=== PATIENT | female | born 1945 | race Caucasian/White ===

== ENCOUNTER 2021-03-31 13:11 | Outpatient (CLI) | payer MEDICARE, SELFPAY ==
--- NOTE | 2021-03-31 13:23 | ECG_ITS ---
Measurements Intervals [place] Rate: 64 P: 48 [place]: 167 QRS: 14 QRSD: 97 T: 33 QT: 406 QTc: 420 Interpretive Statements SINUS RHYTHM INCOMPLETE RIGHT BUNDLE BRANCH BLOCK LOW QRS VOLTAGE IN PRECORDIAL LEADS INFERIOR INFARCT, AGE INDETERMINATE BORDERLINE ST-T WAVE ABNORMALITY- ANTEROLATERAL LEADS ABNORMAL ECG Electronically Signed On 03-31-2021 13:52:51 CDT by Herminio Pemberton D.O.
[2021-03-31 14:17] LABS: Alanine Aminotransferase 24 U/L (4-35); Albumin Level 4.4 g/dL (3.5-5.1); Alkaline Phosphatase 54 U/L (38-126); Amylase 85 U/L (30-110); Anion Gap 11 mmol/L (8-16); Aspartate Amino Transferase 30 U/L (14-36); Bilirubin,Total 0.4 mg/dL (0.2-1.3); Blood Urea Nitrogen 15 mg/dL (7-17); Calcium 10.3 mg/dL (8.4-10.2); Carbon Dioxide 30 mmol/L (22-30); Chloride 100 mmol/L (98-107); Estimated Glomerular Filt Rate > 60; Glucose 140 mg/dL (65-110); Lipase 117 U/L (23-300); Potassium 3.7 mmol/L (3.4-5.0); Sodium 141 mmol/L (137-145)
== END 2021-03-31 13:12 | disposition home or self-care (01) ==
LOC: ANHSURGERY 13:16
PROVIDERS: PCP Family Medicine; Visit Provider Surgery
DX: K81.1 Chronic cholecystitis (principal); Z01.818 Encounter for other preprocedural examination; I45.10 Unspecified right bundle-branch block
CPT/HCPCS: 36415; 80053; 82150; 82248; 83690; 86850; 86900; 86901; 93005

== ENCOUNTER 2021-04-02 01:53 | Day surgery (SDC) | payer MEDICARE, SELFPAY ==
[2021-03-30 17:07] VITALS: BMI 38.9
[2021-04-02] VITALS (7 sets, daily range): BP systolic 136–157; BP diastolic 66–89; PULSE 66–80; RESP 12–16; TEMP 37.1; O2SAT 96–100
[2021-04-02] MEDS: ACETAMINOPHEN 500 MG TABLET 1000 MG PO (13:04)
[2021-04-02] MEDS: SCOPOLAMINE 1.5 MG PATCH TRANSDERM (13:06)
[2021-04-02] MEDS: KETOROLAC 15 MG/ML VIAL (*BKC) IV PUSH (13:14)
[2021-04-02] MEDS: LACTATED RINGERS 1,000 ML 30 ML IV CONT ×2 (13:31→15:16)
--- NOTE | 2021-04-02 13:44 | WPDHPUPDATE1 ---
History and Physical Update Update Date/Time: 04/02/21 13:44 History and Physical has been reviewed, including an updated exam of the patient. There are NO changes in the patient's condition. Risks, benefits, and alternatives have been discussed and questions answered. Patient agrees to proceed with procedure.
[2021-04-02] MEDS: BUPIVACAINE/EPINEPHRINE 0.5% 10 ML VIAL 30 ML INFILTRATE (14:27)
[2021-04-02] MEDS: ceFAZolin 2 GM/D5W 50 ML 2 GM/50 ML BAG IVPB (14:27)
--- NOTE | 2021-04-02 15:02 | W.PM.PROC2 ---
Procedure Note - Detailed Date of Procedure 04/02/21 Pre-op Diagnosis chronic cholecystitis with stones Post-op Diagnosis same Procedure Performed Laparoscopic cholecystectomy Surgeon Leighann Mariano MD Anesthesia general Indications 75-year-old female presented to the office complaining of postprandial right upper quadrant abdominal pain associated with nausea and vomiting. Workup including imaging significant for cholecystitis, cholelithiasis. Findings Cholecystitis with cholelithiasis Description of Procedure The patient was taken to the operating room placed in the supine position. After adequate induction of general anesthesia, the patient was prepped and draped in normal sterile fashion. A time-out was then performed to verify the patient's identity as well as the procedure being performed. I then made a 5 mm incision in the infraumbilical region. Through this, a Veress needle was placed into the peritoneal cavity and CO2 gas was then insufflated. After adequate pneumoperitoneum was achieved, the Veress needle was removed and a 5 mm optiview trocar was placed through this incision under direct visualization. I then placed the laparoscope through this trocar site and under direct visualization placed a further 12 mm subxiphoid port as well as 2 additional 5 mm ports in the right upper abdomen. The gallbladder was then identified and was noted to be moderately inflamed, distended, and had at least one large gallstone. I was able to place a grasper at the dome of the gallbladder and this was retracted anterior and cephalad up over the liver. A 2nd retractor was then placed at the infundibulum and retracted laterally, this allowed visualization of the triangle of Calot. I then was able to visualize the cystic duct in its entirety from its proximal insertion into the gallbladder, to its distal junction with the common hepatic/common bile duct junction. At this point, I carefully skeletonized the proximal cystic duct with the [place] dissector. I then clipped and transected the proximal cystic duct. Next I visualized the cystic artery. Again the artery was skeletonized, clipped, and transected. I then used the Bovie cautery to take down the peritoneal attachments of the gallbladder off the liver bed. This was somewhat difficult given the amount of inflammation in the posterior space. Once the gallbladder specimen was completely detached, an endo-pouch was placed through the 12 mm port site. I then placed the gallbladder specimen into the Endo pouch and removed the endo-pouch from the 12 mm port site. The specimen will now be sent to pathology for further review. I then copiously irrigated the right upper quadrant. Some mild oozing was noted in the liver bed and this was controlled with the bovie cautery. I then placed some hemostatic powder in the liver bed. Hemostasis was noted in the liver bed, the clips were noted to be in good position on both the cystic duct stump and the cystic artery stump. No other pathology was noted in the right upper quadrant. I then moved the laparoscope to the subxiphoid port. No iatrogenic injury or other pathology was noted in the lower abdomen. I then closed the 12 mm trocar site under direct visualization using the Ronnie cone and 0 Vicryl suture. At this point, the abdomen was desufflated and all ports removed. All port sites were then closed with 4.O Monocryl subcuticular sutures. Dermabond was placed on each incision. The patient tolerated the procedure well, was extubated in the operating room postoperative and will be transferred to the recovery room in stable condition Estimated Blood Loss 20 Drains No Packing No Pathology yes Complications No immediate complications Condition stable Disposition PACU
== END 2021-04-02 17:20 | disposition home or self-care (01) ==
PROVIDERS: PCP Family Medicine; Visit Provider Surgery
PROC: 0FT44ZZ Resection of Gallbladder, Percutaneous Endoscopic Approach (ICD-10-PCS; CPT 47562; principal; 2021-04-02 14:00)
DX: K80.10 Calculus of gallbladder with chronic cholecystitis without obstruction (principal); I10 Essential (primary) hypertension; E78.2 Mixed hyperlipidemia; Z85.3 Personal history of malignant neoplasm of breast
CPT/HCPCS: 47562; 88304; A9270; J0690; J1100; J1170; J1885; J2250; J2310; J2405; J2704; J2710; J3010; J7120

== ENCOUNTER 2024-08-30 10:11 | Emergency (ER) | payer MEDICARE, SELFPAY ==
[2024-08-30 10:29] VITALS: BP 136/91; PULSE 57; RESP 16; TEMP 35.7; O2SAT 100
--- NOTE | 2024-08-30 10:37 | ED_ITS ---
HPI - Female Genitourinary General Chief complaint: Urogenital-Female Stated complaint: UTI SYMPTOMS Time Seen by Provider: 08/30/24 10:35 Source: patient Mode of arrival: ambulatory Limitations: no limitations History of Present Illness HPI Narrative: Divya is a 79-year-old female patient presenting to the clinic today with complaints of a possible UTI. She reports she has had symptoms for approximately 3 weeks. Is having some burning with urination as well as some pressure in the lower abdomen and into the low back. She denies any fevers, chills, or body aches. Has attempted to take amoxicillin 500 mg 3 times a day and that improved her symptoms for a few days however this did not resolve her symptoms completely. Related Data Home Medications ?Medication ?Instructions ?Recorded ?Confirmed ?Last Taken ?Type cholecalciferol (vitamin D3) 125 125 mcg PO HS 03/30/21 08/30/24 03/31/21 History mcg (5,000 unit) tablet (Vitamin D3) furosemide 40 mg tablet (Lasix) 40 mg PO QAM 03/30/21 08/30/24 03/31/21 History lisinopril 40 mg tablet 40 mg PO DAILY 03/07/23 08/30/24 Unknown History trazodone 50 mg tablet 25 mg PO QHS PRN sleep 03/07/23 08/30/24 Unknown History Allergies Allergy/AdvReac Type Severity Reaction Status Date / Time adhesive tape Allergy Intermediate Rash Verified 08/30/24 10:27 Review of Systems Review of Systems: Pertinent positives per HPI. Patient denies any fever, chills, rash, headache, visual changes, dizziness, cough, runny nose, sore throat, shortness of breath, chest pain, palpitations, nausea, vomiting, diarrhea, constipation. [facility] Past Medical History Medical History Breast cancer Essential (primary) hypertension History of breast cancer Hypertension Mixed hyperlipidemia Surgical History Surgical History H/O lumbar discectomy (~1993) History of lumpectomy of right breast (~09/08/18) History of partial hysterectomy History of total left knee replacement (~05/16/12) History of total right knee replacement (~03/20/19) Hx laparoscopic cholecystectomy Hx of appendectomy Family History Family History Other Diabetes mellitus Family history of cardiovascular disease Family history of thyroid disease Hypertension Social History Social History Years smoked: 15 Smoking status: Former smoker Tobacco type: cigarettes Second hand tobacco smoke exposure: Yes Smoking end date: 09/12/90 Alcohol intake: former Alcohol use details: very rarely Substance use: never Lack of Transportation: No Lack of Food: Never True Current Housing: I Have Housing Concerned About Future Housing: No Difficulty Paying Gas/Electric Bills: No Difficulty Paying for Meds: No Currently Unemployed: No Difficulty w/ Childcare or Family Care: No Living arrangements: with family Occupation/Education: retired Gender identity (if verbalized by the patient): Female Sexual Orientation (if Verbalized by the Patient): Straight or Heterosexual Spiritual care concerns: No Agree to blood products: Yes Comments At the time of my signature, I reviewed and agree with the nursing past medical, surgical, social, and family history. There is no relevant family history pertinent to the patient complaint. Exam Narrative: General: Well-developed, well nourished, in no apparent distress. Head: Normocephalic, atraumatic. Cardio: Regular rate and rhythm, s1 and s2 normal, no murmur appreciated. Resp: Clear to auscultation bilaterally, no rhonchi, rales, wheezing or rubs. Abdomen: Soft, pliable, bowel sounds present in all quadrants, mild suprapubic tender to palpation, no organomegly, no CVAT tenderness. Course Course Emergency Course: Portions of this record may have been created with voice recognition software. Level of Care: Express Care Visit Vital Signs Vital signs: Vital Signs Temperature 35.7 C L 08/30/24 10:29 Pulse Rate 57 L 08/30/24 10:29 Respiratory Rate 16 08/30/24 10:29 Blood Pressure 136/91 H 08/30/24 10:29 Pulse Oximetry 100 08/30/24 10:29 Temperature 35.7 C L 08/30/24 10:29 Pulse Rate 57 L 08/30/24 10:29 Respiratory Rate 16 08/30/24 10:29 Blood Pressure 136/91 H 08/30/24 10:29 Pulse Oximetry 100 08/30/24 10:29 Vital signs reviewed MDM - Female Genitourinary MDM Narrative Medical decision making narrative: At the time of visit patient is resting comfortably on the exam table. Patient appears to be nontoxic. Labs: Urinalysis positive for leukocytes and blood. We will send for culture. Plan: I suspect patient has acute urinary tract infection. Prescription for Augmentin was sent to the pharmacy. Supportive measures were discussed with the patient and they voiced understanding discharge instructions and agrees to treatment plan. Return precautions reviewed Differential Diagnosis Differential diagnosis: Likely urinary tract infection and cystitis Discharge Plan Discharge Clinical Impression: UTI (urinary tract infection) Qualifiers: Urinary tract infection type: acute cystitis Hematuria presence: with hematuria Qualified Code(s): N30.01 - Acute cystitis with hematuria Patient Disposition: Home, Self-Care Condition: Stable Instructions: Antibiotic Form, Urinary Tract Infection in Older Adults (ED) Additional Instructions: Urinalysis is positive for leukocytes and blood. We will send urine for culture. Take Augmentin as prescribed Increase fluids and stay well hydrated Wipe front to back. May use wet wipes. Avoid tub baths If sexually active- pee before and after intercourse. Wear cotton panties Avoid tight clothing up against the genitals Follow up with your PCP in 1 week if symptoms persist. Patient Language: Portuguese Prescriptions: New amoxicillin-pot clavulanate 875-125 mg tablet 1 tablet PO Q12H 7 Days Qty: 14 0RF No Action lisinopril 40 mg tablet 40 mg PO DAILY trazodone 50 mg tablet 25 mg PO QHS PRN (Reason: sleep) furosemide [Lasix] 40 mg tablet 40 mg PO QAM cholecalciferol (vitamin D3) [Vitamin D3] 125 mcg (5,000 unit) Tablet 125 mcg PO HS amlodipine 10 mg tablet 10 mg PO DAILY Qty: 90 3RF metoprolol tartrate 50 mg tablet 50 mg PO BID Qty: 180 1RF Follow-up/Referrals: Soni,Erick Patel MD [Primary Care Provider] - Time of Disposition: 10:40 Quality NIHSS Nursing Documentation ED NIHSS nursing documentation: reviewed/agree
[2024-08-30 10:40] LABS: EDUAAPPEAR Clear; EDUABILI Negative (Negative); EDUABLOOD 2+ (Negative); EDUACOLOR1 Yellow; EDUAGLUCOSE Negative (Negative); EDUAKETONE Negative (Negative); EDUALEUKO Trace (Negative); EDUANITRATE Negative (Negative); EDUAPH 5.5; EDUAPROTEIN Negative (Negative); EDUAUROBILI 0.2
== END 2024-08-30 10:52 | disposition home or self-care (01) ==
PROVIDERS: Emergency Provider Nurse Practitioner Family; PCP Family Medicine
DX: N30.01 Acute cystitis with hematuria (principal); I10 Essential (primary) hypertension; E78.2 Mixed hyperlipidemia; Z79.899 Other long term (current) drug therapy; Z85.3 Personal history of malignant neoplasm of breast; Z87.891 Personal history of nicotine dependence
CPT/HCPCS: 81003; 87086; 99213; G0463

== ENCOUNTER 2025-01-19 09:43 | Outpatient (CLI) | payer MEDICARE, SELFPAY ==
--- NOTE | ~2025-01-19 | XR_ITS ---
XR hip LT 2V w AP pelvis Ordering provider: Jj Mishra MD History: . M16.12 - Unilateral primary osteoarthritis, left hip . Comparison: None. FINDINGS: BONES: No acute fracture or dislocation. HIP JOINT SPACES: Bilateral severe osteoarthritic changes more on the left side. SACROILIAC JOINT SPACES/LUMBAR SPINE: The sacroiliac joint spaces are normal. Mild degenerative obrien es of the visualized lower lumbar spine. PUBIC SYMPHYSIS: Normal. SOFT TISSUES: Normal. IMPRESSION: No acute osseous abnormality pelvis and left hip. Severe bilateral hip osteoarthritic changes more on the left side. Reviewed, dictated and finalized at location A.
--- OUTSIDE RECORDS SUMMARY | 2025-01-19 09:49 | XMS_ITS | Patient Health Record ---
Author Organization [facility] [address] [place], [place] [id number] Care Team Providers Care Acting Instructor Name Role Phone ABILIO OCONNOR Primary Care Provider REASON FOR REFERRAL No Information MEDICATIONS Medication SIG (Take, Route, Frequency, Duration) Notes Start Date End Date Status Metoprolol Tartrate 50 MG 2 tablets 1 ho ur before procedure Orally Once a day Active amLODIPine Besylate 10 MG 1 tablet Orall y Once a day Active Furosemide 40 MG 1 tablet Orally Once a day Active Anastrozole 1 MG 1 tablet Orally Once a day Active Lisinopril 40 MG 1 tablet Orally Once a day Active Alendronate Sodium 70 MG 1 tablet 30 min utes before the first food, beverage or medicine of the day with plain water Orally Active Vitamin D3 125 MCG (5000 UT) as directed Orally Active SOCIAL HISTORY Tobacco Use: Social History Observation Description Date Details (start date - stop date) Never Smoker NA - NA Sex Assigned At : Social History Observation Description Sex Assigned At Unknown Tobacco Use/Smoking Question Answer Notes Are you a nonsmoker PLAN OF TREATMENT No Information Insurance Providers Payer Name Payer Address Payer Phone Subscriber Number Group Number Insured Name Patient Relationship to Insured Coverage Start Date Coverage End Date [employer] [place] [employer] [address] [address] [place] [address] [id number] JEFFREY BLUE Self - patient is the insured [facility] [address] [place], [place] [id number] JEFFREY BLUE Self - patient is the insured 9 MEDICAL (GENERAL) HISTORY Medical History History ICD Code hypertension osteoporosis breast cancer Surgical History Surgery Date(Month/Year) bilateral knees hysterectomy
--- OUTSIDE RECORDS SUMMARY | 2025-01-19 09:49 | XMS_ITS | Clinical Summary ---
Author Organization [facility] Address [address] [place] [address] Care Team Providers Care Cable Tower Operator Name Role Phone Daisha Blackman MD Primary Care Provider [phone] Hernando Ackerman MD Unavailable Allergies Active Allergy Reactions Criticality Noted Date Comments Iodinated Contrast Media Unknown 01/21/2021 Medications lisinopril (ZESTRIL) 40 mg tablet Take 40 mg by mouth 1 (one) time each day. Active metoprolol tartrate (LOPRESSOR) 50 mg tablet Take 1 tablet by mouth 2 (two) times a day. Active amLODIPine (NORVASC) 10 mg tablet Take 1 tablet by mouth 1 (one) time each day. Active alendronate (FOSAMAX) 70 mg tablet Take 70 mg by mouth every 7 (seven) days. Take in the morning with a full glass of water, on an empty stomach, and do not take anything else by mouth or lie down for the next 30 min. Active cholecalciferol (VITAMIN D-3) 50 mcg (2,000 unit) capsule Take 5,000 Units by mouth 1 (one) time each day. Active glucosamine-cho ndroitin 500-400 mg tablet Take 1 tablet by mouth 3 (three) times a day. Active anastrozole (ARIMIDEX) 1 mg tablet Take 1 mg by mouth every night at bedtime. 06/30/2022 Active furosemide (LASIX) 40 mg tablet TAKE 1 TABLET(40 MG) BY MOUTH 1 TIME EACH DAY 90 tablet 09/15/2022 Active Active Problems Problem Noted Date Diagnosed Date Renal cyst 09/18/2021 Voiding dysfunction 01/21/2021 Stress incontinence 01/21/2021 Immunizations Immunization Administration Dates Next Due Influenza, High-Dose, Sonya valent (CVX 197) 08/05/2021 Influenza, seasonal, injecta ble (CVX 141) 07/30/2010,06/10/2009,08/15/2001 Influenza, seasonal, injecta ble, PF (CVX 140) 05/30/2020,09/23/2017 Influenza, trivalent, adjuva nted (CVX 168) 07/20/2019,06/19/2019,06/14/2019 Novel [id number] (CVX 127) 08/30/2009 Pneumococcal Conjugate PCV 1 3 (CVX 133) 09/12/2016 Pneumococcal Polysaccharide PPV23 (CVX 33) 09/12/2015,08/15/2001 influenza, high dose seasona l (CVX 135) 08/05/2018,06/27/2016,07/24/2015,07/07,07/08/2013,07/22/2011 Family History Medical History Relation Name Comments No Known Problems Father Relation Name Status Comments Father Social History Tobacco Use Types Packs/Day Years Used Date Smoking Tobacco: Former Smokeless Tobacco: Never Alcohol Use Standard Drinks/Week Comments Not Currently 0 (1 standard drink = 0.6 oz pur e alcohol) Caregiver Education and Work Answer Sb e Recorded Opt Out of Tobacco Outreach No 05/14 Opt Out of Tobacco Outreach No 05/14 Safety and Environment Answer Date Christian rded Opt Out of Tobacco Outreach No 05/14 Opt Out of Tobacco Outreach No 05/14 Opt Out of Tobacco Outreach No 05/14 Opt Out of Tobacco Outreach No 05/14 Caregiver Health Answer Date Recorded Opt Out of Tobacco Outreach No 05/14 Opt Out of Tobacco Outreach No 05/14 Opt Out of Tobacco Outreach No 05/14 Child Education Answer Date Recorded Opt Out of Tobacco Outreach No 05/14 Opt Out of Tobacco Outreach No 05/14 Opt Out of Tobacco Outreach No 05/14 Adolescent Substance Use Answer Date Re corded Opt Out of Tobacco Outreach No 05/14 Opt Out of Tobacco Outreach No 05/14 Opt Out of Tobacco Outreach No 05/14 [place] Short Social Needs Screening - Social Connect ion Answer Date Recorded Would you like help with any of the following needs: food, medicine/medical supplies, transportation, loneliness, housing or utilities? Not on file 01/27/2024 [place] Short Social Needs Screening - Food Insecurit y Answer Date Recorded Would you like help with any of the following needs: food, medicine/medical supplies, transportation, loneliness, housing or utilities? See other domains 09/20/2023 Would you like help with any of the following needs: food, medicine/medical supplies, transportation, loneliness, or housing/utilities? Not on file 09/20/2023 Comments Unknown Sex and Gender Information Value Date Recorded Sex Assigned at Not on file Legal Sex Female 7:20 AM EDT Gender Identity Not on file Sexual Orientation Not on file Last Filed Vital Signs Vital Sign Reading Time Taken Comments Blood Pressure 133/63 09/15/2022 8:33 AM EST Pulse 60 09/15/2022 8:33 AM EST Temperature 36.6 C (97.9 F) 09/15/2022 8:33 AM EST Respiratory Rate - - Oxygen Saturation 96% 08/27/2022 10: 28 AM EST Inhaled Oxygen Concentration - - Weight 91.1 kg (200 lb 13.4 oz) 09/15/2022 8:33 AM EST Height 154.9 cm (5' 1 ) 09/15/2022 8:33 AM EST Body Mass Index 37.95 09/15/2022 8:33 AM EST Plan of Treatment Health Maintenance Due Date Last Done Comments Hepatitis C Screening 1946 Depression Screening 1958 DTaP,Tdap,and Td Vaccines (1 - Tdap) 1965 Zoster Vaccines (1 of 2) 1965 Osteoporosis Screening 1996 Advance Care Planning 2011 Fall Risk Screening 2011 RSV women or 60 years and older (1 - 1-dose 75+ series) 2021 COVID-19 Vaccine (#1) 09/02/2021 08/05/2021, 021 Influenza Vaccine (Season Ended) 2025 08/05/2021, 05/30/2020, 07/20/2019, Additional history exists Pneumococcal Vaccine: 50+ Years Completed 09/12/2016, 09/12/2015, 08/15/2001 Pneumococcal Vaccine: Pediatrics (0 to 5 Years) and At-Risk Patients (6 to 49 Years) Completed 09/12/2016, 09/12/2015, 08/15/2001 Diabetes Screening Discontinued 09/07/2018, 1 , 07/12/2018 HIB Vaccines Aged Out No longer eligi ble based on patient's age to complete this topic HPV Vaccines Aged Out No longer eligi ble based on patient's age to complete this topic Hepatitis A Vaccines Aged Out No long er eligible based on patient's age to complete this topic Hepatitis B Vaccines Aged Out No long er eligible based on patient's age to complete this topic IPV Vaccines Aged Out No longer eligi ble based on patient's age to complete this topic Meningococcal ACWY Aged Out No longer eligible based on patient's age to complete this topic RSV patients under 20 months Aged Out No longer eligible based on patient's age to complete this topic Procedures Procedure Name Priority Date/Time Associated Diagnosis Comments COMPREHENSIVE METABOLIC PANEL Routine 09/07/2018 1:18 PM EST from Last 3 Months or Most Recently Relevant to Health Maintenance Results * Comprehensive metabolic panel (09/07/2018 1:18 PM EST) Albumin Level 3.8 3.5 - 5.0 g/dL LAB_2500 ALP 63 40 - 150 U/L LAB_2500 ALT 17 6 - 55 U/L LAB_2500 AST 19 5 - 34 U/L LAB_2500 Bilirubin Total 0.3 0.2 - 1.2 mg/dL LAB_2500 BUN 13 7 - 20 mg/dL LAB_2500 Calcium 9.6 8.4 - 10.2 mg/dL LAB_2500 Chloride 105 98 - 107 mmol/L LAB_2500 CO2 28 22 - 31 mmol/L LAB_2500 Creatinine 0.8 0.6 - 1.1 mg/dL LAB_2500 Glucose 95 83 - 110 mg/dL LAB_2500 Potassium 3.8 3.5 - 5.1 mmol/L LAB_2500 Sodium 143 136 - 145 mmol/L LAB_2500 Total Protein 7.0 6.4 - 8.3 g/dL LAB_2500 BUN/Creatinine Ratio 16.2 7.3 - 21.7 LAB_2500 Osmolality Calc 293 280 - 300 mOs/kg LAB_2500 Anion Gap 10 2 - 12 mmol/L LAB_2500 09/07/2018 1:18 PM EST Phi Briceno MD LAB BLOOD ORDERABLES Final R esult LAB_2500 from Last 3 Months or Most Recently Relevant to Health Maintenance Insurance MEDICARE A & B [facility] MEDICARE SUPPLEMENT Care Teams Cable Tower Operator Relationship Specialty Start Date End Date Daisha Blackman MD PCP - General 09/12/19 Hernando Ackerman MD [address] [place] [address] Consulting Physician Radiation Oncology 02/17/21
--- OUTSIDE RECORDS SUMMARY | 2025-01-19 09:49 | XMS_ITS | Encounter Summary ---
Author Organization [facility] Healthcare Address [address] [place] [address] Care Team Providers Care Diversity Manager Name Role Phone Erick Shafer MD Primary Care Provider [phone] Reason for Referral * Diagnostic Imaging (Routine) - Closed Specialty Diagnoses / Procedures Referred By Contac t Referred To Contact Radiology Diagnoses Abdominal pain, bilateral lower quadrant Procedures CT Abdomen Pelvis WO Contrast Erick Shafer MD [address] [place] [address] [address] [place] [address] Phone: tel: fax: [address] [phone] Referral ID Status Reason Start Date Expiration Date Visits Re quested Visits Authorized [id number] Closed 01/15/2025 02/14/2026 1 1 Reason for Visit * Diagnostic Imaging (Routine) - Closed Specialty Diagnoses / Procedures Referred By Contac t Referred To Contact Radiology Diagnoses Abdominal pain, bilateral lower quadrant Procedures CT Abdomen Pelvis WO Contrast Erick Shafer MD [address] [place] [address] [address] [place] [address] Phone: tel: fax: [address] [phone] Referral ID Status Reason Start Date Expiration Date Visits Re quested Visits Authorized [id number] Closed 01/15/2025 02/14/2026 1 1 Encounter Details Date Type Department Care Team (Latest Contact Info) Description 01/19/2025 8:33 AM CDT Hospital Encounter [facility] [address] [place] [address] Abdominal pain, bilateral lower quadrant Social History Tobacco Use Types Packs/Day Years Used Date Smoking Tobacco: Never Smokeless Tobacco: Never AUDIT-C Answer Date Recorded Q1: How often do you have a drink containing alc ohol? Monthly or less 05/15/2024 Q2: How many drinks containi ng alcohol do you have on a typical day when you are drinking? 1 or 2 05/15/2024 Q3: How often do you have si x or more drinks on one occasion? Never 05/15/2024 PHQ-2 Answer Date Recorded PHQ-2 Total Score (If total score is 3 or more points, staff should administer the PHQ-9) 0 01/03/2025 Comments Unknown Sex and Gender Information Value Date Recorded Sex Assigned at Not on file Legal Sex Female 5:10 PM TELEGRAPH OFFICE TELEPHONE CLERK Gender Identity Not on file Sexual Orientation Not on file documented as of this encounter Plan of Treatment Pending Results Name Type Priority Associated Diagnoses Date /Time CT Abdomen Pelvis WO Contrast Imaging Schedule Routine, Read Routine (OP Routine) Abdominal pain, bilateral lower quadrant 01/19/2025 8:38 AM CDT Scheduled Orders Name Type Priority Associated Diagnoses Orde r Schedule CT Abdomen Pelvis WO Contrast Imaging Schedule Routine, Read Routine (OP Routine) Abdominal pain, bilateral lower quadrant Once for 1 Occurrences starting 01/19/2025 until 01/19/2025 documented as of this encounter Visit Diagnoses Diagnosis Abdominal pain, bilateral lower quadrant documented in this encounter Care Teams Diversity Manager Relationship Specialty Start Date End Date Erick Shafer MD PCP - General Family Medicine 06/15/24 documented as of this encounter
--- OUTSIDE RECORDS SUMMARY | 2025-01-19 09:49 | XMS_ITS | Clinical Summary ---
Author Organization [facility] [address] Address [address] [place] [address] Care Team Providers Care Time Checker Name Role Phone Erick Shafer MD Primary Care Provider [phone] Allergies Active Allergy Reactions Criticality Noted Date Comments Adhesive Rash Medium 05/15/2024 Pulls skin off Iodinated Contrast Media Unknown 01/21/2021 Medications traZODone (DESYREL) 50 mg tablet Take 1 tablet (50 mg total) by mouth nightly 1-2 tablets every evening Active amLODIPine (NORVASC) 10 mg tablet Take 1 tablet (10 mg total) by mouth daily Active metoprolol tartrate (LOPRESSOR) 50 mg immediate release tablet Take 1 tablet (50 mg total) by mouth 2 (two) times a day Active lisinopriL (PRINIVIL,ZESTR IL) 40 mg tablet Take 1 tablet (40 mg total) by mouth daily Active furosemide (LASIX) 40 mg tablet Take 1 tablet (40 mg total) by mouth daily Active vitamin D3-vitamin K2 25 mcg (1,000 unit)-90 mcg tablet,disinteg rating Take 2,000 Units by mouth daily 01/04/20 25 Discontinu ed(Therapy completed) Active Problems No known active problems Encounters Date Type Department Care Team Description 01/19/2025 8:33 AM CDT Hospital Encounter [facility] [address] [place] [address] Abdominal pain, bilateral lower quadrant 01/14/2025 Telephone [facility] Family Medicine at [address] [place] [phone] Erick Shafer MD Symptom Based Call 01/03/2025 8:15 AM CDT Office Visit [facility] at [address] [place] [address] Erick Shafer MD Medicare annual wellness visit, subsequent (Primary Dx); Essential hypertension; Edema of both lower extremities; Chronic insomnia; Postmenopausal status from Last 3 Months Immunizations Immunization Administration Dates Next Due H1N1 Inj 08/30/2009 Influenza Virus Vaccine Trivalent Mdv 07/20/2019 ,06/19/2019,06/14/2019 Influenza, Quad, Adjuvantate d, Intramuscular 07/24/2022 Influenza, Quadrivalent, Hig h Dose, Preservative Free, Intrr 08/05/2021 Influenza, Trivalent, High D ose, Split, Preservative Free, Intramuscular 08/05/2018,06/27/2016,07/24/2015,07/07,07/08/2013,07/22/2011 Influenza, Trivalent, IM (MDV) 07/30/2010,2008,08/15/2001 Influenza, Trivalent, Preser vative Free, Intramuscular 05/30/2020,09/23/2017 Influenza, Unspecified 06/12/2023(Deferred: Leana ent Refused) Moderna SARS-CoV-2 Monovalen t Vaccination (12+ YRS) 08/05/2021,10/20/2020,09/24/2020 Pneumococcal Conjugate PCV 13 09/12/2016 Pneumococcal Polysaccharide PPV23 09/12/2015,12/2000 Surgical History Surgery Date Site/Laterality Comments CHOLECYSTECTOMY BREAST LUMPECTOMY JOINT REPLACEMENT HYSTERECTOMY SPINE SURGERY Family History Medical History Relation Name Comments Diabetes Brother Lung cancer Brother Stroke Brother Brain Aneurysm Father Diabetes Father Heart disease Father Diabetes Mother Heart disease Mother Thyroid disease Mother No Known Problems Sister Relation Name Status Comments Brother Father Mother Sister Alive Social History Tobacco Use Types Packs/Day Years Used Date Smoking Tobacco: Never Smokeless Tobacco: Never Tobacco Cessation:Counseling Given: Not Answered AUDIT-C Answer Date Recorded Q1: How often [...] on file 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 Gender Identity Not on file Sexual Orientation Not on file Obstetrics History Last Filed Vital Signs Vital Sign Reading Time Taken Comments Blood Pressure 130/62 01/03/2025 8:18 AM CDT Pulse 56 01/03/2025 8:18 AM CDT Temperature 36.6 C (97.9 F) 01/03/2025 8:18 AM CDT Respiratory Rate - - Oxygen Saturation 95% 01/03/2025 8:18 AM CDT Inhaled Oxygen Concentration - - Weight 87 kg (191 lb 14.4 oz) 01/03/2025 8:18 AM CDT Height 154.9 cm (5' 1 ) 01/03/2025 8:18 AM CDT Body Mass Index 36.26 01/03/2025 8:18 AM CDT Plan of Treatment Health Maintenance Due Date Last Done Comments Hepatitis C Screening 1945 Osteoporosis Screening-Bone Density Scan 1945 DTaP/Tdap/Td Vaccine (1 - Tdap) 1957 Hepatitis B Screening 1964 Zoster Vaccine (1 of 2) 1996 Covid-19 Vaccine (4 - 2023-2 5 season) 2024 08/05/2021, 10/20/2020, 09/24/2020 Influenza Vaccine (Season Ended) 2025 07/24/2022, 08/05/2021, 05/30/2020, Additional history exists Depression Screening 01/03/2026 01/03/2025, 05/15/20 Fall Risk Assessment 01/03/2026 01/03/2025, 05/15/20 Well Visit 65+ 01/03/2026 01/03/2025 Pneumococcal vaccine 65+ Completed 017, 09/12/2015, 08/15/2001 Insurance MEDICARE [facility] MEDICARE [facility] Care Teams Time Checker Relationship Specialty Start Date End Date Erick Shafer MD PCP - General Family Medicine 06/15/24
--- OUTSIDE RECORDS SUMMARY | 2025-01-19 09:49 | XMS_ITS | Referral Summary ---
Author Organization [facility] [address] Address [address] [place] [address] Care Team Providers Care Crop Pest Control Specialist Name Role Phone Erick Shafer MD Primary Care Provider [phone] Encounters Date Type Department Care Team Description 01/19/2025 8:33 AM CDT Hospital [facility] [address] [place] [address] Abdominal pain, bilateral lower quadrant 01/14/2025 Telephone [facility] Family Medicine at [address] [place] [address] Erick Shafer MD Symptom Based Call 01/03/2025 8:15 AM CDT Office Visit [facility] Medical [facility] Family Medicine at [address] [place] [phone] Erick Shafer MD Medicare annual wellness visit, subsequent (Primary Dx); Essential hypertension; Edema of both lower extremities; Chronic insomnia; Postmenopausal status from Last 3 Months Allergies Active Allergy Reactions Criticality Noted Date [...] completed) Active Problems No known active problems Immunizations Immunization Administration Dates Next Due H1N1 [...] PCV 13 09/12/2016 Pneumococcal Polysaccharide PPV23 09/12/2015,12/2000 Social History Tobacco Use Types Packs/Day Years [...] on file 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 [address] [place] [address] [facility] [place] [address] [facility] Care Teams Crop Pest Control Specialist Relationship Specialty Start Date End Date Erick Shafer MD PCP - General Family Medicine 06/15/24
--- OUTSIDE RECORDS SUMMARY | 2025-01-19 09:50 | XMS_ITS | Patient Health Record ---
Author Organization [facility] Address [address] [address] Support Name Relationship Address Phone Divya Fair Guarantor Unknown [phone] Reason For Referral No Information Problems Problem Type SNOMED Code ICD Code Onset Dates Problem Status W/U Status Risk Notes Problem 98632478 HTN (hypertension) (I10) Active confirmed Problem 44282696 Allergic rhinitis (J30.9) Active confirmed Problem 19678934 S/P lumpectomy, right breast (Z98.89) Active confirmed Problem 35240292 CAD (coronary artery disease) (I25.10) Active confirmed Problem 640913843 Morbid obesity (E66.01) Active confirmed Problem 301755559 Family history of MN (myocardial infarction) (Z82.49) Active confirmed Mother, at age 89 years, had MN Problem 752835167 Epiretinal membrane, both eyes (H35.373) Active confirmed Problem 22111932 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 Plan Of Treatment No Information Insurance Providers Payer Name Payer Address Payer Phone Subscriber Number Group Number Insured Name Patient Relationship to Insured Coverage Start Date Coverage End Date AARP (Supplemen rissa to Medicare) [address] [place] [address] [id number] Divya Fair Self - patient is the insured 3 MEDICARE [address] [place] [phone] [id number] Divya Fair Self - patient is the insured 1 Medical (General) History Medical History History ICD Code HTN (hypertension) I10 CAD (coronary artery disease) I25.10 Allergic rhinitis J30.9 S/P lumpectomy, right breast Z98.89 Epiretinal membrane, both eyes H35.373 Vitreous detachment of left eye H43.812 Morbid obesity E66.01 Status post total knee replacement, left Z96.652 Family history of MN (myocardial infarct ion) Z82.49
== END 2025-01-19 09:44 | disposition home or self-care (01) ==
PROVIDERS: PCP Family Medicine; Visit Provider Orthopaedic Surgery
DX: M16.0 Bilateral primary osteoarthritis of hip (principal)
CPT/HCPCS: 73502

== ENCOUNTER 2025-01-29 09:00 | Outpatient (CLI) | payer MEDICARE, SELFPAY ==
--- OUTSIDE RECORDS SUMMARY | 2025-01-29 09:13 | XMS_ITS | Encounter Summary ---
Author Organization [facility] Healthcare Address [address] [place] [address] Care Team Providers Care Talent Development Consultant Name Role Phone Erick Shafer MD Primary Care Provider [phone] Reason for Referral * MRI/CAT/PET Scan (Routine) - Authorized Specialty Diagnoses / Procedures Referred By Contac t Referred To Contact Radiology Diagnoses Lesion of bone of thoracic spine Procedures MRI Thoracic Spine WO Contrast Erick Shafer MD [address] [place] [address] [address] [place] [address] Phone: tel: fax: [address] [address] Referral ID Status Reason Start Date Expiration Date V isits Requested Visits Authorized [id number] Authorized 01/23/2025 02/22/2026 1 1 Reason for Visit * Reason Onset Date Comments Medical Question/Miscellaneous 01/22/2025 Encounter Details Date Type Department Care Team (Late st Contact Info) Description 01/22/2025 Results Follow-Up [facility] Family Medicine at [address] [address] Erick Shafer MD [address] [place] [id number] Abdomen Pelvis WO Contrast Social History Tobacco Use Types Packs/Day Years [...] on file 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 Wasn't sure of results message in chart. Warm transferred to practice. Does message need to be routed? No Reason for Warm Transfer: Patient returning call from practice Practice Accepted the Warm Transfer? Yes Additional Comments If YES above, and no barriers. documented in this encounter Plan of Treatment Scheduled Orders Name Type Priority Associated Diagnoses Order Schedule Urinalysis reflex to microscopic and culture Urine Microbiology Routine Abdominal pain, bilateral lower quadrant Expected: 01/23/2025, Expires: 01/23/2026 MRI Thoracic Spine WO Contrast Imaging Schedule Routine, Read Routine (OP Routine) Lesion of bone of thoracic spine Expected: 01/23/2025, Expires: 01/23/2026 documented as of this encounter Visit Diagnoses Diagnosis Abdominal pain, bilateral lower quadrant- Primary Lesion of bone of thoracic spine documented in this encounter Care Teams Talent Development Consultant Relationship Specialty Start Date End Date Erick Shafer MD PCP - General Family Medicine 06/15/24 documented as of this encounter
--- OUTSIDE RECORDS SUMMARY | 2025-01-29 09:13 | XMS_ITS | Patient Health Record ---
Author Organization [facility] [address] Address [address] [place], [place] [address] Care Team Providers Care Utility Assembler Name Role Phone ABILIO OCONNOR Primary Care [...] [facility] [place] [facility] [address] [address] [place] [address] [id number] JEFFREY BLUE Self - patient is the insured 1 [facility] l [address] [place], [place] [id number] JEFFREY BLUE Self - patient is the insured 9 MEDICAL (GENERAL) HISTORY Medical History History ICD Code hypertension osteoporosis breast cancer Surgical History Surgery Date(Month/Year) bilateral knees hysterectomy
--- OUTSIDE RECORDS SUMMARY | 2025-01-29 09:14 | XMS_ITS | Referral Summary ---
Author Organization [facility] [address] Address [address] [place] [address] Care Team Providers Care Twist Tester Name Role Phone Erick Shafer MD Primary Care Provider [phone] Encounters Date Type Department Care Team Description 01/22/2025 Results Follow-Up [facility] Family Medicine at [address] [place] [address] Abdomen Pelvis WO Contrast 01/19/2025 8:33 AM CDT - 01/19/2025 11:59 PM CDT Hospital Encounter [facility] Orthopedic and Neuroscience[facility] CT [address] [place] [address] Abdominal pain, bilateral lower quadrant Discharge Disposition: Discharge to home or self care 01/14/2025 Telephone [facility] Family Medicine at [address] [place] [phone] Erick Shafer MD Symptom Based Call 01/03/2025 8:15 AM CDT Office Visit [facility] Medical [facility] Family Medicine at [address] [place] [address] Erick Shafer MD Medicare annual wellness visit, [...] on file 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 Gender Identity Not on file Sexual Orientation [...] CDT Plan of Treatment Not on file Procedures Procedure Name Priority Date/Time Associated Diagnosis Comments CT ABDOMEN PELVIS WO CONTRAST Schedule Routine, Read Routine (OP Routine) 01/19/2025 8:38 AM CDT Abdominal pain, bilateral lower quadrant from Last 3 Months Results * CT Abdomen Pelvis WO Contrast (01/19/2025 8:38 AM CDT) Anatomical Region Laterality Modality Body N/A Computed Tomogra phy 01/19/2025 1:08 PM CDT Narrative 01/19/2025 1:11 PM CDT EXAM DESCRIPTION: CT ABDOMEN PELVIS WO CONTRAST REASON FOR STUDY: bilateral lower quadrant abdominal pain Patient had her gallbladder removed 3 years ago and has had epigastric pain patient and diarrhea since TECHNIQUE: CT scan of the abdomen and pelvis performed without intravenous and without oral contrast using helical scanning technique. Reconstructed coronal and sagittal MPR images reviewed. All images stored on PACS. Automated exposure control was used as a dose optimization technique for this examination. COMPARISON: None FINDINGS: The sensitivity for detection of visceral lesions is diminished without the use of intravenous contrast. LOWER CHEST: There are curvilinear bands of atelectasis or scarring in the lung bases. LIVER: Normal length. GALLBLADDER: Absent. SPLEEN: Normal length. PANCREAS: No peripancreatic inflammation or fluid collection. ADRENALS: No adrenal mass. KIDNEYS/URINARY TRACT: No urolithiasis. There is minimal bilateral pelvicaliectasis. An exophytic 1.3 cm right renal lesion likely represents a renal cyst. GI: No bowel obstruction. Colonic diverticulosis without acute diverticulitis. PERITONEUM: No ascites or free air. VASCULATURE: Vascular calcifications. No abdominal aortic aneurysm. MUSCULOSKELETAL: No acute findings. Osteoarthritis in the bilateral hip joints. Lumbar and lower thoracic spondylosis. Lucent lesions in the T7 and T8 vertebral bodies. L4 vertebral body hemangioma. OTHER: No other abnormality. IMPRESSION: No acute findings. Minimal bilateral pelvicaliectasis of uncertain etiology. Correlate for history of recently passed urinary calculus. Consideration could be given to direct visualization or CT urogram. Colonic diverticulosis. Indeterminate lucent lesions in the T7 and T8 vertebral bodies. Further evaluation with nonemergent MRI is recommended. Additional findings as above. THIS IS AN ELECTRONICALLY VERIFIED FINAL REPORT 01/19/2025 1:11 PM - Electronically signed by Carrillo Cabral M.D. JR T: Report ID: [id number] Reading Location: [id number] Procedure Note Carrillo Cabral MD - 01/19/2025 EXAM DESCRIPTION: CT ABDOMEN PELVIS WO CONTRAST REASON FOR STUDY: bilateral lower quadrant abdominal pain Patient had her gallbladder removed 3 years ago and has had epigastricpain patient and diarrhea since TECHNIQUE: CT scan of the abdomen and pelvis performed without intravenousand without oral contrast using helical scanning technique. Reconstructed coronal and sagittal MPR images reviewed. All images stored on PACS. Automated exposure control was used as a dose optimization technique forthis examination. COMPARISON: None FINDINGS: The sensitivity for detection of visceral lesions is diminished without the use of intravenous contrast. LOWER CHEST: There are curvilinear bands of atelectasis or scarring inthe lung bases. LIVER: Normal length. GALLBLADDER: Absent. SPLEEN: Normal length. PANCREAS: No peripancreatic inflammation or fluid collection. ADRENALS: No adrenal mass. KIDNEYS/URINARY TRACT: No urolithiasis. There is minimal bilateral pelvicaliectasis. An exophytic 1.3 cm right renal lesion likelyrepresents a renal cyst. GI: No bowel obstruction. Colonic diverticulosis without acute diverticulitis. PERITONEUM: No ascites or free air. VASCULATURE: Vascular calcifications. No abdominal aortic aneurysm. MUSCULOSKELETAL: No acute findings. Osteoarthritis in the bilateral hip joints. Lumbar and lower thoracic spondylosis. Lucent lesions in the T7and T8 vertebral bodies. L4 vertebral body hemangioma. OTHER: No other abnormality. IMPRESSION: No acute findings. Minimal bilateral pelvicaliectasis of uncertain etiology. Correlate for history of recently passed urinary calculus. Consideration could be givento direct visualization or CT urogram. Colonic diverticulosis. Indeterminate lucent lesions in the T7 and T8 vertebral bodies. Further evaluation with nonemergent MRI is recommended. Additional findings as above. THIS IS AN ELECTRONICALLY VERIFIED FINAL REPORT 01/19/2025 1:11 PM - Electronically signed by Carrillo Cabral M.D. T: Report ID: [id number] Reading Location: [place] [address] Erick Shafer MD IMG CT PROCEDURES Final Resul t from Last [address] [facility]ICARE [facility] Care Teams Twist Tester Relationship Specialty Start Date End Date Erick Shafer MD PCP - General Family Medicine 06/15/24
--- OUTSIDE RECORDS SUMMARY | 2025-01-29 09:14 | XMS_ITS | Patient Health Record ---
Author Organization [facility] Address [address] [address] Support Name Relationship Address Phone Divya Fair Guarantor Unknown [phone] Reason For Referral No Information Problems Problem Type SNOMED Code ICD Code Onset Dates Problem Status W/U Status Risk Notes Problem 94372722 HTN (hypertension) (I10) Active confirmed Problem 66969583 Allergic rhinitis (J30.9) Active confirmed Problem 05559931 S/P lumpectomy, right breast (Z98.89) Active confirmed Problem 15615616 CAD (coronary artery disease) (I25.10) Active confirmed Problem 105464558 Morbid obesity (E66.01) Active confirmed Problem 795837523 Family history of CO (myocardial infarction) (Z82.49) Active confirmed Mother, at age 89 years, had CO Problem 340354133 Epiretinal membrane, both eyes (H35.373) Active confirmed Problem 00837850 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 Plan Of Treatment No Information Insurance Providers Payer Name Payer Address Payer Phone Subscriber Number Group Number Insured Name Patient Relationship to Insured Coverage Start Date Coverage End Date AARP (Supplemen rissa to Medicare) [address] [place] [address] [id number] Divya Fair Self - patient is the insured 3 MEDICARE [address] [place] [phone] [id number] Divya Fair Self - patient is the insured 1 Medical (General) History Medical History History ICD Code HTN (hypertension) I10 CAD (coronary artery disease) I25.10 Allergic rhinitis J30.9 S/P lumpectomy, right breast Z98.89 Epiretinal membrane, both eyes H35.373 Vitreous detachment of left eye H43.812 Morbid obesity E66.01 Status post total knee replacement, left Z96.652 Family history of CO (myocardial infarct ion) Z82.49
--- OUTSIDE RECORDS SUMMARY | 2025-01-29 09:14 | XMS_ITS | Clinical Summary ---
Author Organization [facility] Address [address] [place] [address] Care Team Providers Care Operations Controller Name Role Phone Daisha Blackman MD Primary Care Provider [phone] Hernando Ackerman MD Unavailable Allergies Active Allergy [...] trivalent, adjuva nted (CVX 168) 07/20/2019,06/19/2019,06/14/2019 Novel [id number] (CVX 127) 08/30/2009 Pneumococcal Conjugate PCV 1 [...] Health Maintenance Insurance MEDICARE A & B [facility] MEDICARE SUPPLEMENT Care Teams Operations Controller Relationship Specialty Start Date End Date Daisha Blackman MD PCP - General 09/12/19 Hernando Ackerman MD [address] [place] [address] Consulting Physician Radiation Oncology 02/17/21
--- OUTSIDE RECORDS SUMMARY | 2025-01-29 09:14 | XMS_ITS | Clinical Summary ---
Author Organization [facility] [address] Address [address] [place] [address] Care Team Providers Care Safety Relief Valve Technician Name Role Phone Erick Shafer MD Primary Care Provider [phone] Allergies Active Allergy Reactions Criticality Noted Date [...] Department Care Team Description 01/22/2025 Results Follow-Up [facility] Family Medicine at [address] [place] [address] Abdomen Pelvis WO Contrast 01/19/2025 8:33 AM CDT - 01/19/2025 11:59 PM CDT Hospital Encounter 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 JR T: Report ID: [id number] Reading Location: [place] [address] Erick Shafer MD IMG CT PROCEDURES Final Resul t from Last 3 [place]ths [place] [address] [facility] MEDICARE [facility] Care Teams Safety Relief Valve Technician Relationship Specialty Start Date End Date Erick Shafer MD PCP - General Family Medicine 06/15/24
--- NOTE | 2025-01-29 09:20 | ECG_ITS ---
Test Date: 2025-01-29 09:41:04 Measurements Intervals [place] Rate: 53 P: 50 CT: 169 QRS: 3 QRSD: 94 T: 30 QT: 430 QTc: 406 Interpretive Statements SINUS BRADYCARDIA LOW QRS VOLTAGE IN PRECORDIAL LEADS [QRS DEFLECTION < 1.0 mV IN CHEST LEADS] INFERIOR MYOCARDIAL INFARCTION , PROBABLY OLD [40+ ms Q WAVE AND/OR ST/T ABNORMALITY IN II/aVF] NONSPECIFIC ST AND T WAVE ABNORMALITY No previous ECG available for comparison Electronically Signed On 01-29-2025 13:38:12 CDT by Michelle oGnzalez M.D.
[2025-01-29 09:34] LABS: Hematocrit 44.2 % (37.0-47.0); Hemoglobin 14.7 g/dL (12.0-15.0)
[2025-01-29 09:44] LABS: Albumin Level 4.4 g/dL (3.5-5.1); Estimated Glomerular Filt Rate 56; Glucose 103 mg/dL (65-110)
[2025-01-29 10:13] LABS: Urine Cotinine NEGATIVE
== END 2025-01-29 09:01 | disposition home or self-care (01) ==
PROVIDERS: PCP Family Medicine; Visit Provider Orthopaedic Surgery
DX: E78.2 Mixed hyperlipidemia (principal); M16.12 Unilateral primary osteoarthritis, left hip; Z79.899 Other long term (current) drug therapy; I10 Essential (primary) hypertension; R94.31 Abnormal electrocardiogram [ECG] [EKG]
CPT/HCPCS: 80307; 82040; 82565; 82947; 85014; 85018; 93005

== ENCOUNTER 2025-03-25 09:44 | Outpatient (CLI) | payer MEDICARE, SELFPAY ==
--- OUTSIDE RECORDS SUMMARY | 2025-03-25 09:54 | XMS_ITS | Encounter Summary ---
Author Organization [facility] Healthcare Address [address] [place] [address] Care Team Providers Care Battery Vent Plug Inserter Name Role Phone Erick Shafer MD Primary Care Provider [phone] Reason for Referral * MRI/CAT/PET Scan (Routine) - Authorized Specialty Diagnoses / Procedures Referred By Contac t Referred To Contact Radiology Diagnoses Opacity of lung on imaging study Procedures CT Chest WO Contrast Erick Shafer MD [address] [place] [address] [address] Phone: tel: fax: [address] [address] Referral ID Status Reason Start Date Expiration Date V isits Requested Visits Authorized [id number] Authorized 03/08/2025 04/07/2026 1 1 * Diagnostic Imaging (Routine) - Authorized Specialty Diagnoses / Procedures Referred By Contac t Referred To Contact Diagnoses Goiter Procedures US Thyroid Erick Shafer MD [address] [place] [address] [address] Phone: tel: fax: [address] [address] Referral ID Status Reason Start Date Expiration Date V isits Requested Visits Authorized [id number] Authorized 03/08/2025 04/07/2026 1 1 Encounter Details Date Type Department Care Team (Late st Contact Info) Description 03/03/2025 Results Follow-Up [facility] Medical Group Family Medicine at [address] [place] [id number] Erick Shafer MD [address] [place] [address] [address] [place] [address] MRI Thoracic Spine WO Contrast, TSH Social History Tobacco Use Types Packs/Day Years [...] on file 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 Gender Identity Not on file Sexual Orientation Not on file documented as of this encounter Plan of Treatment Scheduled Orders Name Type Priority Associated Diagnoses Orde r Schedule US Thyroid Imaging Schedule Routine , Read Routine (OP Routine) Goiter Expected: 03/08/2025, Expires: 03/08/2026 Thyroid peroxidase antibody (TPO) Lab Routine Goiter Expected: 03/08/2025, Expires: 03/08/2026 CT Chest WO Contrast Imaging Schedule Ro utine, Read Routine (OP Routine) Opacity of lung on imaging study Expected: 03/08/2025, Expires: 03/08/2026 documented as of this encounter Procedures Procedure Name Priority Date/Time Associated Diagnosis Comments TSH Routine 03/21/2025 1:02 PM CDT Goiter documented in this encounter Results * TSH (03/21/2025 1:02 PM CDT) TSH 0.41 0.40 - 4.50 mIU/L [facility] Blood 03/21/2025 1:02 PM CDT 03/21/2025 1:03 PM CDT Erick Shafer MD LAB BLOOD ORDERABLES Final Re sult Performing Organization Address City/State/[facility] Co de Phone Number [facility] [address] [place] [address] documented in this encounter Visit Diagnoses Diagnosis Goiter- Primary Goiter, unspecified Opacity of lung on imaging study documented in this encounter Care Teams Battery Vent Plug Inserter Relationship Specialty Start Date End Date Erick Shafer MD PCP - General Family Medicine 06/15/24 documented as of this encounter
--- OUTSIDE RECORDS SUMMARY | 2025-03-25 09:54 | XMS_ITS | Encounter Summary ---
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 Third Libertarian Name of Third Libertarian: Dr. Mishra How to return form to third republican? Fax Fax Number to use for return of forms: [phone] Additional Comments: Patient is scheduled for surgery on 04/16/2025. Does message need to be routed? Yes-Action Needed documented in this encounter Plan of Treatment Not on file documented as of this encounter Visit Diagnoses Not on filedocumented in this encounter Care Teams Editor & Co Founder Relationship Specialty Start Date End Date Erick Shafer MD PCP - General Family Medicine 06/15/24 documented as of this encounter
--- OUTSIDE RECORDS SUMMARY | 2025-03-25 09:54 | XMS_ITS | Clinical Summary ---
Author Organization [facility] Address [address] [place] [address] Care Team Providers Care Wireless Consultant Name Role Phone Daisha Blackman MD Primary Care Provider [phone] Hernando Ackerman MD Unavailable Allergies Active Allergy [...] trivalent, adjuva nted (CVX 168) 07/20/2019,06/19/2019,06/14/2019 Novel [id number] (CVX 127) 08/30/2009 Pneumococcal Conjugate PCV 1 [...] 8:33 AM EST Height 154.9 cm (5' 1) 09/15/2022 8:33 AM EST Body Mass Index [...] Vaccine (#1) 09/02/2021 08/05/2021, 021 Influenza Vaccine (#1) 2025 , 05/30/2020, 07/20/2019, Additional history exists Pneumococcal Vaccine: [...] Health Maintenance Insurance MEDICARE A & B [facility] MEDICARE SUPPLEMENT Care Teams Wireless Consultant Relationship Specialty Start Date End Date Daisha Blackman MD PCP - General 09/12/19 Hernando Ackerman MD [address] [place] [address] Consulting Physician Radiation Oncology 02/17/21
--- OUTSIDE RECORDS SUMMARY | 2025-03-25 09:55 | XMS_ITS | Clinical Summary ---
Author Organization [facility] [address] Address [address] [place] [address] Care Team Providers Care Board Certified Music Therapist Name Role Phone Erick Shafer MD Primary Care Provider [phone] Allergies Active Allergy Reactions Criticality Noted Date [...] (40 mg total) by mouth daily Active Active Problems No known active problems Encounters Date Type Department Care Team Description 03/25/2025 Telephone [facility] Medical Group Family Medicine at [address] [place] [address] Erick Shafer MD Forms Request 03/03/2025 Results Follow-Up [facility] Family Medicine at [address] [place] [address] Erick Shafer MD MRI Thoracic Spine WO Contrast, TSH 02/27/2025 3:24 PM CDT - 02/27/2025 11:59 PM CDT Hospital Encounter [facility] MRI [address] [place] [address] Lesion of bone of thoracic spine Discharge Disposition: Discharge to home or self care 02/06/2025 Telephone [facility] Family Medicine at [address] [address] Erick Shafer MD Surgical Clearance 01/22/2025 Results Follow-Up [facility] at [address] [address] Abdomen Pelvis WO Contrast 01/19/2025 8:33 AM CDT - 01/19/2025 11:59 PM CDT Hospital Encounter [facility] [address] [place] [address] Abdominal pain, bilateral lower quadrant Discharge Disposition: Discharge to home or self care 01/14/2025 Telephone [facility] at [address] [address] Erick Shafer MD Symptom Based Call 01/03/2025 8:15 AM CDT Office Visit [facility] Medicine at [address] [address] Erick Shafer MD Medicare annual wellness visit, [...] on file 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 Gender Identity Not on file Sexual Orientation [...] 8:18 AM CDT Height 154.9 cm (5' 1) 01/03/2025 8:18 AM CDT Body Mass Index 36.26 01/03/2025 8:18 AM CDT Plan of Treatment Health Maintenance Due Date Last Done Comments Hepatitis C Screening 1945 Osteoporosis Screening-Bone Density Scan 1945 DTaP/Tdap/Td Vaccine (1 - Tdap) 1957 Hepatitis B Screening 1964 Zoster Vaccine (1 of 2) 1996 Covid-19 Vaccine (4 2023-2 5 season) 2024 08/05/2021, 10/20/2020, 09/24/2020 Influenza Vaccine (#1) 2025 , 08/05/2021, 05/30/2020, Additional history exists Depression Screening 01/03/2026 01/03/2025, 05/15/20 Fall Risk Assessment 01/03/2026 01/03/2025, 05/15/20 Well Visit 65+ 01/03/2026 01/03/2025 Pneumococcal vaccine 65+ Completed 017, 09/12/2015, 08/15/2001 Procedures Procedure Name Priority Date/Time Associated Diagnosis Comments TSH Routine 03/21/2025 1:02 PM CDT Goiter MRI THORACIC SPINE WO CONTRAST Schedule Routine, Read Routine (OP Routine) 02/27/2025 5:12 PM CDT Lesion of bone of thoracic spine ECG 12-LEAD Routine 01/29/2025 SCANNED LABS Routine 01/29/2025 CT ABDOMEN PELVIS WO CONTRAST Schedule Routine, Read Routine (OP Routine) 01/19/2025 8:38 AM CDT Abdominal pain, bilateral lower quadrant from Last 3 Months Results * TSH (03/21/2025 1:02 PM CDT) TSH 0.41 0.40 - 4.50 mIU/L [facility] Blood 03/21/2025 1:02 PM CDT 03/21/2025 1:03 PM CDT us Erick Shafer MD LAB BLOOD ORDERABLES Final Re sult [facility] [address] [address] * MRI Thoracic Spine WO Contrast (02/27/2025 5:12 PM CDT) Anatomical Region Laterality Modality Spine N/A Magnetic Resonan ce 02/28/2025 10:2 3 AM CDT Narrative 02/28/2025 10:37 AM CDT EXAM DESCRIPTION: MRI THORACIC SPINE WO CONTRAST REASON FOR STUDY: Bone lesion, thoracic spine, incidental, abnormal vertebra F/u for CT on 01/19/25. Mid back pain x29 years that's worsened over time. NO injury/ No surgery TECHNIQUE: Sagittal and Axial imaging includes T1, T2, STIR and gradient echo sequences. COMPARISON: CT of the abdomen and pelvis dated 01/19/2025 FINDINGS: ALIGNMENT: Mild anterolisthesis of T2 over T3. VERTEBRAE: There are rounded T1, T2 and STIR hyperintense foci within the T7 and T8 vertebral bodies as seen on prior CT. These represent hemangiomas. There is also a background of T1 hypointensity and STIR hyperintensity within the T7 and to a lesser extent T8 and T9 vertebral bodies which represent severe Modic endplate changes. There are also type 1 Modic endplate changes at T1-T2 and T11-12. Partially visualized type 1 Modic changes of L2-L3. The vertebral body heights are maintained. CORD: Normal in size and signal intensity. THORACIC DISCS T1-T12: Mild multilevel disc space height loss. There are multiple disc bulges and protrusions in the thoracic spine. No significant spinal canal stenosis is identified. There is mild multilevel neural foraminal stenosis. Numerous thoracic perineural cysts most pronounced at T1-T2.. SOFT TISSUES: There is a ill-defined opacity in the medial aspect of the right lower lobe measuring 3.9 cm (series 901, image 10.). This does not appear to have been within the field of view on the prior CT abdomen and pelvis. There is an enlarged multinodular thyroid goiter with mild substernal extension. The heart is enlarged. LOWER CERVICAL: Incompletely imaged. Partially visualized cervical spondylosis with [id number] spinal canal stenosis at C5-C6. UPPER LUMBAR: Incompletely imaged. No significant spinal or neuroforaminal stenosis. OTHER: No other significant abnormality. IMPRESSION: 1. The previously described lucent lesions of the T7 and T8 vertebral bodies are T1 hyperintense and STIR hypointense representing hemangiomas. 2. 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 No significant spinal canal stenosis within the thoracic spine. 3. Ill-defined opacity in the medial aspect of the right lower lobe measuring 3.9 cm. This does not appear to have been within the field of view on the prior CT abdomen and pelvis. This is nonspecific and may represent consolidation such as pneumonia or a mass. Further evaluation with chest CT is recommended. 4. Enlarged multinodular thyroid goiter with mild substernal extension. THIS IS AN ELECTRONICALLY VERIFIED FINAL REPORT 02/28/2025 10:37 AM - Electronically signed by iKshor Carr M.D. MM T: Report ID: [id number] Reading Location: [place] [address] Procedure Note Kishor Carr MD - 02/28/2025 EXAM DESCRIPTION: MRI THORACIC SPINE WO CONTRAST REASON FOR STUDY: Bone lesion, thoracic spine, incidental, abnormalvertebra F/u for CT on 01/19/25. Mid back pain x29 years that's worsened over time.NO injury/ No surgery TECHNIQUE: Sagittal and Axial imaging includes T1, T2, STIR and gradientecho sequences. COMPARISON: CT of the abdomen and pelvis dated 01/19/2025 FINDINGS: ALIGNMENT: Mild anterolisthesis of T2 over T3. VERTEBRAE: There are rounded T1, T2 and STIR hyperintense foci withinthe T7 and T8 vertebral bodies as seen on prior CT. These represent hemangiomas. There is also a background of T1 hypointensity and STIR hyperintensitywithin the T7 and to a lesser extent T8 and T9 vertebral bodies which represent severe Modic endplate changes. There are also type 1 Modic endplatechanges at T1-T2 and T11-12. Partially visualized type 1 Modic changes of L2-L3.The vertebral body heights are maintained. CORD: Normal in size and signal intensity. THORACIC DISCS T1-T12: Mild multilevel disc space height loss. Thereare multiple disc bulges and protrusions in the thoracic spine. Nosignificant spinal canal stenosis is identified. There is mild multilevel neural foraminal stenosis. Numerous thoracic perineural cysts most pronounced at T1-T2.. SOFT TISSUES: There is a ill-defined opacity in the medial aspect of the right lower lobe measuring 3.9 cm (series 901, image 10.). This does not appear to have been within the field of view on the prior CT abdomen and pelvis. There is an enlarged multinodular thyroid goiter with mildsubsternal extension. The heart is enlarged. LOWER CERVICAL: Incompletely imaged. Partially visualized cervical spondylosis with [id number] spinal canal stenosis at C5-C6. UPPER LUMBAR: Incompletely imaged. No significant spinal orneuroforaminal stenosis. OTHER: No other significant abnormality. IMPRESSION: 1. The previously described lucent lesions of the T7 and T8 vertebralbodies are T1 hyperintense and STIR hypointense representing hemangiomas. 2. Severe degenerative disc disease of the thoracic spine withmultilevel severe type 1 Modic degenerative changes. No significant spinal canal stenosis within the thoracic spine. 3. Ill-defined opacity in the medial aspect of the right lower lobe measuring 3.9 cm. This does not appear to have been within the field ofview on the prior CT abdomen and pelvis. This is nonspecific and may represent consolidation such as pneumonia or a mass. Further evaluation with chestCT is recommended. 4. Enlarged multinodular thyroid goiter with mild substernalextension. THIS IS AN ELECTRONICALLY VERIFIED FINAL REPORT 02/28/2025 10:37 AM - Electronically signed by Kishor Carr M.D. MM T: Report ID: [id number] Reading Location: [id number] Erick Shafer MD IMG MRI PROCEDURES Final Resu lt * Scanned Labs (01/29/2025) 01/29/2025 us Historical Provider MD LAB BLOOD ORDERABLES Arabella lam Result EXTERNAL LAB * ECG 12 lead (01/29/2025) Historical Provider MD ECG ORDERABLES Edited Re sult - Final * CT Abdomen Pelvis WO Contrast (01/19/2025 [...] Carrillo Cabral M.D., JR T: Report ID: [id number] Reading Location: [place] [address] Procedure Note Carrillo Cabral MD - 01/19/2025 [...] 1:11 PM - Electronically signed by Carrillo Vasuqez.D. JR T: Report ID: [id number] Reading Location: [place] [address] Erick Shafer MD IMG CT PROCEDURES Final Resul t from Last 3 Months Insurance MEDICARE [facility] Care Teams Board Certified Music Therapist Relationship Specialty Start Date End Date Erick Shafer MD PCP - General Family Medicine 06/15/24
--- OUTSIDE RECORDS SUMMARY | 2025-03-25 09:55 | XMS_ITS | Encounter Summary ---
Author Organization [facility] Healthcare Address [address] [place] [address] Care Team Providers Care Surveyor'S Assistant Name Role Phone Erick Shafer MD Primary Care Provider Reason for Referral * MRI/CAT/PET Scan (Routine) - Closed Specialty Diagnoses / Procedures Referred By Contac t Referred To Contact Radiology Diagnoses Lesion of bone of thoracic spine Procedures MRI Thoracic Spine WO Contrast Erick Shafer MD [address] [place] [address] [address] Phone: tel: fax: [address] [address] Referral ID Status Reason Start Date Expiration Date Visits Re quested Visits Authorized [id number] Closed 01/23/2025 02/22/2026 1 1 Reason for Visit * Reason Onset Date Comments Medical Question/Miscellaneous 01/22/2025 Encounter Details Date Type Department Care Team (Late st Contact Info) Description 01/22/2025 Results Follow-Up [facility] Family Medicine at [address] [place] [address] Erick Shafer MD [address] [place] [address] [address] [address] Abdomen Pelvis WO Contrast Social History [...] on file 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 Partially visualized cervical spondylosis with [id number] spinal canal stenosis at C5-C6. UPPER LUMBAR: [...] Kishor Carr M.D. MM T: Report ID: [id number] Reading Location: [id number] Procedure Note Kishor Carr MD - 02/28/2025 [...] Incompletely imaged. Partially visualized cervical spondylosis with [id number] spinal canal stenosis at C5-C6. UPPER LUMBAR: [...] Kishor Carr M.D. MM T: Report ID: [id number] Reading Location: [place] [address] Erick Shafer MD IMG MRI PROCEDURES Final Resu lt documented in this encounter Visit Diagnoses Diagnosis Abdominal pain, bilateral lower quadrant- Primary Lesion of bone of thoracic spine Lesion of bone of thoracic spine documented in this encounter Care Teams Surveyor'S Assistant Relationship Specialty Start Date End Date Erick Shafer MD PCP - General Family Medicine 06/15/24 documented as of this encounter
--- OUTSIDE RECORDS SUMMARY | 2025-03-25 09:55 | XMS_ITS | Referral Summary ---
Author Organization [facility] [address] Address [address] [place] [address] Care Team Providers Care Propeller Mechanic Name Role Phone Erick Shafer MD Primary Care Provider [phone] Encounters Date Type Department Care Team Description 03/25/2025 Telephone [facility] Medical [facility] at [address] [place] [phone] Erick Shafer MD Forms Request 03/03/2025 Results Follow-Up [facility] at [address] [place] [phone] Erick Shafer MD MRI Thoracic Spine WO Contrast, TSH 02/27/2025 3:24 PM CDT - 02/27/2025 11:59 PM CDT Hospital Encounter [facility] MRI [address] [place] [address] Lesion of bone of thoracic spine Discharge Disposition: Discharge to home or self care 02/06/2025 Telephone [facility] at [address] [phone] Erick Shafer MD Surgical Clearance 01/22/2025 Results Follow-Up [facility] at [address] [place] [phone] Abdomen Pelvis WO Contrast 01/19/2025 8:33 AM CDT - 01/19/2025 11:59 PM CDT Hospital Encounter [facility] [address] [place] [address] Abdominal pain, bilateral lower quadrant Discharge Disposition: Discharge to home or self care 01/14/2025 Telephone [facility] Medical [facility] at [address] [place] [address] Erick Shafer MD Symptom Based Call 01/03/2025 8:15 AM CDT Office Visit [facility] Medicine at [address] [place] [address] Erick Shafer MD Medicare annual wellness visit, [...] Active Active Problems No known active problems Immunizations [...] on file 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 Partially visualized cervical spondylosis with [id number] spinal canal stenosis at C5-C6. UPPER LUMBAR: [...] Kishor Carr M.D. MM T: Report ID: [id number] Reading Location: [place] [address] Procedure Note Kishor Carr MD - 02/28/2025 [...] Incompletely imaged. Partially visualized cervical spondylosis with [id number] spinal canal stenosis at C5-C6. UPPER LUMBAR: [...] Kishor Carr M.D. MM T: Report ID: [id number] Reading Location: [id number] Erick Shafer MD IMG MRI PROCEDURES Final Resu lt * Scanned Labs (01/29/2025) 01/29/2025 Historical Provider LAB BLOOD ORDERABLES Arabella l Result EXTERNAL LAB * ECG 12 lead (01/29/2025) Historical Provider ECG ORDERABLES Edited Re sult - Final [...] Carrillo Cabral M.D. JR T: Report ID: [id number] Reading Location: [id number] Procedure Note Carrillo Cabral MD - 01/19/2025 [...] Carrillo Cabral M.D. JR T: Report ID: [id number] Reading Location: [place] [address] Erick Shafer MD IMG CT PROCEDURES Final Resul t from Last 3 Months Insurance MEDICARE [facility] MEDICARE [facility] Care Teams Propeller Mechanic Relationship Specialty Start Date End Date Erick Shafer MD PCP - General Family Medicine 06/15/24
[2025-03-25 11:22] LABS: Hematocrit 43.2 % (37.0-47.0); Hemoglobin 14.2 g/dL (12.0-15.0); Immature Granulocyte Percent A 0.2 % (0-0.5); Lymphocytes Absolute Auto 1.13 K/mm3 (0.9-3.2); Mean Corpuscular HGB Conc 32.9 g/dl (32-36); Mean Corpuscular Hemoglobin 30.6 pg (26-34); Mean Corpuscular Volume 93.1 fl (80-100); Nucleated Red Blood Cells Absolute Auto 0.000 K/mm3 (0.0-0.012); Nucleated Red Blood Cells Perc 0.0 % (0.0-0.2); Platelet Count Result 180 k/mm3 (150-375); Red Blood Count 4.64 M/mm3 (4.2-5.4); White Blood Count 4.7 K/mm3 (4.5-10.0)
[2025-03-25 11:31] LABS: Albumin Level 4.4 g/dL (3.5-5.1)
[2025-03-25 11:35] LABS: Anion Gap 8 mmol/L (4-12); Blood Urea Nitrogen 17 mg/dL (7-17); Calcium 10.2 mg/dL (8.4-10.2); Carbon Dioxide 25 mmol/L (22-30); Chloride 106 mmol/L (98-107); Estimated Glomerular Filt Rate 48; Glucose 105 mg/dL (65-110); Potassium 4.8 mmol/L (3.4-5.0); Sodium 139 mmol/L (137-145)
[2025-03-25 12:03] LABS: Hemoglobin A1C 5.4 % (<5.7)
[2025-03-25 12:27] LABS: MRSA (PCR) NOT DETECTED (NOT DETECTE)
== END 2025-03-25 09:45 | disposition home or self-care (01) ==
LOC: ANHSURGERY 09:50
PROVIDERS: Anesthesiology; PCP Family Medicine; Visit Provider Orthopaedic Surgery
DX: M16.12 Unilateral primary osteoarthritis, left hip (principal); I10 Essential (primary) hypertension; Z01.812 Encounter for preprocedural laboratory examination
CPT/HCPCS: 36415; 80048; 80307; 82040; 83036; 85025; 87641

== ENCOUNTER 2025-03-30 10:58 | Emergency (ER) | payer MEDICARE, SELFPAY ==
[2025-03-30 11:16] VITALS: BP 113/79; PULSE 60; RESP 16; TEMP 36.3; O2SAT 96
--- NOTE | 2025-03-30 12:59 | ED_ITS ---
HPI - Female Genitourinary General Chief complaint: Urogenital-Female Stated complaint: Blood In Urine Time Seen by Provider: 03/30/25 12:52 Source: patient and RN notes reviewed Mode of arrival: ambulatory Limitations: no limitations History of Present Illness HPI Narrative: Patient presents today with a 2-3 week history of hematuria without any additional symptoms to include dysuria, fever, frequency. No OTC treatment prior to arrival. Related Data Home Medications ?Medication ?Instructions ?Recorded ?Confirmed ?Last Taken ?Type furosemide 40 mg tablet (Lasix) 40 mg PO QAM 03/30/21 03/25/25 03/31/21 History lisinopril 40 mg tablet 40 mg PO DAILY 03/07/23 03/25/25 Unknown History trazodone 50 mg tablet 25 mg PO QHS PRN sleep 03/07/23 03/25/25 Unknown History potassium chloride 20 mEq 20 meq PO HS 03/25/25 03/25/25 Unknown History tablet,extended release Allergies Allergy/AdvReac Type Severity Reaction Status Date / Time adhesive tape Allergy Intermediate Rash Verified 03/25/25 09:55 [facility] Past Medical History Medical History Breast cancer Essential (primary) hypertension Mixed hyperlipidemia History of breast cancer Hypertension Surgical History Surgical History Hx laparoscopic cholecystectomy Hx of appendectomy History of partial hysterectomy History of total right knee replacement (~03/20/19) History of total left knee replacement (~05/16/12) H/O lumbar discectomy (~1993) History of lumpectomy of right breast (~09/08/18) Family History Family History Other Diabetes mellitus Family history of cardiovascular disease Family history of thyroid disease Hypertension Social History Social History Smoking packs per day: 0.5 Smoking cigarettes per day: 10.0 Years smoked: 15 Smoking pack-years: 7.50 Smoking status: Former smoker Tobacco type: cigarettes Second hand tobacco smoke exposure: Yes Smoking end date: 09/12/89 Additional smoking assessment comments: DENIES ANY FORM OF TOBACCO USE Alcohol intake: former Alcohol use details: very rarely Substance use: never Lack of Transportation: No Lack of Food: Never True Current Housing: I Have Housing Concerned About Future Housing: No Difficulty Paying Gas/Electric Bills: No Difficulty Paying for Meds: No Currently Unemployed: No Difficulty w/ Childcare or Family Care: No Living arrangements: with family Occupation/Education: retired Gender identity (if verbalized by the patient): Female Sexual Orientation (if Verbalized by the Patient): Straight or Heterosexual Spiritual care concerns: No Agree to blood products: Yes Comments At time of signature, I have reviewed and agree with nursing past medical, surgical, social and family history unless otherwise noted. Please see nursing chart for further information. There is no relevant family history pertinent to the presenting complaint Exam Narrative: GENERAL: Well-appearing, well-nourished, and in no acute distress. HEAD: Normocephalic, atraumatic. EYES: EOMI. No redness or drainage. Conjunctivae normal. ENT: Mucous membranes pink and moist. NECK: Normal AROM. CHEST: No respiratory distress. Clear to auscultation. HEART: Regular rate and rhythm. No murmur appreciated. Normal peripheral pulses. ABDOMEN: Soft, nontender, nondistended, normal active bowel sounds.-CVAT EXTREMITIES: Normal range of motion. No edema. SKIN: Warm, dry, no rash. Capillary refill normal. Normal skin turgor. NEURO: No focal deficits. Alert and oriented x3. Gait steady. PSYCH: Normal affect. No signs of depression or anxiety. Course Course Level of Care: Express Care Visit Vital Signs Vital signs: Vital Signs Temperature 97.4 F L 03/30/25 11:16 Pulse Rate 60 03/30/25 11:16 Respiratory Rate 16 03/30/25 11:16 Blood Pressure 113/79 03/30/25 11:16 Pulse Oximetry 96 03/30/25 11:16 Temperature 97.4 F L 03/30/25 11:16 Pulse Rate 60 03/30/25 11:16 Respiratory Rate 16 03/30/25 11:16 Blood Pressure 113/79 03/30/25 11:16 Pulse Oximetry 96 03/30/25 11:16 Reviewed MDM - Female Genitourinary MDM Narrative Medical decision making narrative: For 79-year-old female patient presents with a 2-3 week history of hematuria without any additional symptoms. Urinalysis is positive for protein, blood, ketones, leukocytes, bilirubin. She will be treated with a course of Keflex with her culture pending. Discussed with patient that if symptoms do not improve with these antibiotics that she needs to follow up with her PCP for additional testing. Patient agrees with plan. Vital signs stable. Differential Diagnosis Differential diagnosis: Likely urinary tract infection, cystitis and other (Malignancy) Critical Care Time Critical Care Time Critical Care Time: No Discharge Plan Discharge Clinical Impression: Urinary tract infection Qualifiers: Urinary tract infection type: acute cystitis Hematuria presence: with hematuria Qualified Code(s): N30.01 - Acute cystitis with hematuria Patient Disposition: Home Condition: Stable Instructions: Antibiotic Form, Urinary Tract Infection in Women (ED) Additional Instructions: Your urine shows infection today. Take Keflex as prescribed until gone. Your urine will be sent of for a culture to identify what type of bacteria is causing your infection. If the culture shows that your medication will not get rid of your infection, you will be notified and a new antibiotic will be called in for you. If your symptoms worsen to include fever, sweats, chills, nausea, vomiting, severe abdominal or back pain, please go to the ER for further evaluation. If your symptoms do not improve with the antibiotics, please follow-up with your PCP as soon as possible for further evaluation. Patient Language: South African Prescriptions: New cephalexin 500 mg capsule 500 mg PO BID 7 Days Qty: 14 0RF No Action lisinopril 40 mg tablet 40 mg PO DAILY trazodone 50 mg tablet 25 mg PO QHS PRN (Reason: sleep) potassium chloride 20 mEq tablet extended release 20 meq PO HS furosemide [Lasix] 40 mg tablet 40 mg PO QAM amlodipine 10 mg tablet 10 mg PO DAILY Qty: 90 3RF metoprolol tartrate 50 mg tablet 50 mg PO BID Qty: 180 1RF Follow-up/Referrals: Soni,Erick Patel MD [Primary Care Provider] - Time of Disposition: 13:03
[2025-03-30 13:04] LABS: EDUAAPPEAR Cloudy; EDUABILI 1+ (Negative); EDUABLOOD 3+ (Negative); EDUACOLOR1 Dark; EDUAGLUCOSE Negative (Negative); EDUAKETONE Trace (Negative); EDUALEUKO 2+ (Negative); EDUANITRATE Negative (Negative); EDUAPH 6.0; EDUAPROTEIN 2+ (Negative); EDUASPGRAVITY 1.030; EDUAUROBILI 0.2
== END 2025-03-30 13:07 | disposition home or self-care (01) ==
PROVIDERS: Emergency Provider Nurse Practitioner; PCP Family Medicine
DX: N30.01 Acute cystitis with hematuria (principal); Z87.891 Personal history of nicotine dependence; I10 Essential (primary) hypertension; E78.2 Mixed hyperlipidemia; Z85.3 Personal history of malignant neoplasm of breast; Z90.11 Acquired absence of right breast and nipple; Z96.653 Presence of artificial knee joint, bilateral; Z90.711 Acquired absence of uterus with remaining cervical stump
CPT/HCPCS: 81003; 87086; 99213; G0463

== ENCOUNTER 2025-04-16 00:52 | Day surgery (SDC) | payer MEDICARE, SELFPAY ==
--- NOTE | 2025-03-25 09:50 | PC.NURSE ---
Report to the Outpatient Waiting Room, entrance under the green pavilion located off [facility], at time _11:30 AM on date _04/16/25 . Planned Procedure Time: _1:30 PM .? Time changes happen often and if your time is changed the preop area will call you the afternoon before. - You and your visitor will be asked to self-screen and do not enter if you have any COVID symptoms. Please call surgeon if you need to reschedule. - A mask is optional within the hospital at this time. Patients may have clear liquids (water, carbonated beverages, clear teas, apple juice) until 3 hours prior to surgery ( 10:30 AM) with a maximum of 20 ounces. - No food from midnight until time of surgery and no smoking, or chewing tobacco (or any form of nicotine). No chewing gum, candy or mints. - Take only the following medications with a SIP of water on the morning of surgery: ____AMLODIPINE,METOPROLOL DO NOT STOP ANY OF YOUR OTHER PRESCRIPTION MEDICATIONS PRIOR TO SURGERY EXCEPT THE FOLLOWING Hold all vitamins and supplements for 3 days per anesthesiologist. Medications to discontinue per physician NONE Please no make-up, nail slovak, hairspray, perfume, deodorant, or body powder the day of surgery.? No jewelry (including any body piercings) or valuables the day of surgery, leave them at home.? Please take a shower or bath the night before, or the morning of, surgery with an antibacterial soap.? Wear comfortable, loose fitting clothing.? Children are encouraged to wear pajamas. - Jewelry must be removed prior to entering the operating room.? Rings and piercings that are not removed may be cut off. - The hospital will not accept responsibility for valuables.? - Please leave all valuables, including medications, at home the day of surgery. If you are going home after surgery, a licensed dump truck driver must drive you home.? - NO public transportation without another adult if you receive anesthesia. - We recommend that an adult stay with you for 24 hours following discharge. - We also recommend that you do not drive, make important decision, drink alcoholic beverages, or take any drugs that were not prescribed by your health care provider for at least 24 hours after your discharge time. For Pediatric surgeries, we recommend two adults accompany the child home. Follow any additional instructions given to you from your surgeon. VERBAL AND WRITTEN instructions given to __PATIENT and asked if any additional questions and then verbalized understanding. Patient advised to call surgeon office or pre surgery nurse liaison [phone] if any additional questions.
[2025-03-25 09:55] VITALS: BMI 38.7
[2025-03-25 10:39] VITALS: BP 128/76; PULSE 53; RESP 18; TEMP 36.7; O2SAT 97
[2025-04-16] VITALS (15 sets, daily range): BP systolic 113–146; BP diastolic 43–71; PULSE 55–71; RESP 10–18; TEMP 35.8–36.7; O2SAT 92–100
--- NOTE | ~2025-04-16 | XR_ITS ---
EXAMINATION: XR hip LT min 2V DATE: 04/16/2025 13:21 INDICATION: Left hip arthroplasty TECHNIQUE: 2 views left hip FINDINGS: There is a left total hip arthroplasty in expected position. Subcutaneous gas with soft ti ssue swelling are consistent with recent surgery. IMPRESSION: 1. Recent left total hip arthroplasty. Reviewed, dictated and finalized at location A.
--- OUTSIDE RECORDS SUMMARY | 2025-04-16 00:55 | XMS_ITS | Patient Health Record ---
Author Organization [facility] [address] [place], [place] [id number] Care Team Providers Care Ingredient Mixer Name Role Phone ABILIO OCONNOR Primary Care Provider [phone] Reason For Referral No Information Medications Medication SIG (Take, Route, Frequency, Duration) Notes [...] MCG (5000 UT) as directed Orally Active Social History Tobacco Use: Social History Observation Description Date Details (start date - stop date) Never Smoker NA - NA Tobacco Use/Smoking Question Answer Notes Are you a nonsmoker Plan Of Treatment No Information Insurance Providers Payer Name Payer Address Payer Phone Subscriber Number Group Number Insured Name Patient Relationship to Insured Coverage Start Date Coverage End Date Medicare of [place] [employer] [address] [address] [place] [address] [id number] JEFFREY BLUE Self - patient is the insured 1 [facility] [address] [place], [place] [id number] JEFFREY BLUE Self - patient is the insured 9 Medical (General) History Medical History History ICD Code hypertension osteoporosis breast cancer Surgical History Surgery Date(Month/Year) bilateral knees hysterectomy
--- OUTSIDE RECORDS SUMMARY | 2025-04-16 00:55 | XMS_ITS | Encounter Summary ---
Author Organization [facility] Healthcare Address [address] [place] [address] Care Team Providers Care Mortgage Broker Name Role Phone Erick Shafer MD Primary Care Provider [phone] Encounter Details Date Type Department Care Team (Late st Contact Info) Description 04/15/2025 Results Follow-Up [facility] Medical Group Family Medicine at [address] [place] [address] Kassandra Salazar, [address] [address] Dexa Axial Skeleton Bone Density 1 Or 2 Site Social History Tobacco Use Types Packs/Day Years [...] points, staff should administer the PHQ-9) 0 04/05/2025 Comments Unknown Sex and Gender Information Value Date Recorded Sex Assigned at Not on file 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
--- OUTSIDE RECORDS SUMMARY | 2025-04-16 00:55 | XMS_ITS | Patient Health Record ---
Author Organization [facility] Address [address] [address] Support Name Relationship Address Phone Divya Fair Guarantor Unknown [phone] Reason For Referral No Information Problems Problem Type SNOMED Code ICD Code Onset Dates Problem Status W/U Status Risk Notes Problem Hypertension (15784473) HTN (hypertension ) (I10) Active confirmed Problem Allergic rhinitis (72684312) Allergic rhinitis (J30.9) Active confirmed Problem S/P lumpectomy, right breast (Z98.89) Active confirmed Problem Coronary artery disease (12135711) CAD (coronary artery disease) (I25.10) Active confirmed Problem Morbid obesity (264352500) Morbid obesity (E66.01) Active confirmed Problem Family history of ischemic heart disease (610516236) Family history of [place] (myocardial infarction) (Z82.49) Active confirmed Mother, at age 89 years, had [place] Problem Epiretinal membrane (041771683) Epiretinal membrane, both eyes (H35.373) Active confirmed Problem Vitreous detachment of left eye (855289358922952 ) 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 Plan Of Treatment No Information Insurance Providers Payer Name Payer Address Payer Phone Subscriber Number Group Number Insured Name Patient Relationship to Insured Coverage Start Date Coverage End Date [employer] (Supplemen rissa to Medicare) [address] [place] [address] [id number] Divya Fair Self - patient is the insured 3 MEDICARE [address] [place] [phone] [id number] Divya Fair Self - patient is the insured 1 Medical (General) History Medical History History ICD Code HTN (hypertension) I10 CAD (coronary artery disease) I25.10 Allergic rhinitis J30.9 S/P lumpectomy, right breast Z98.89 Epiretinal membrane, both eyes H35.373 Vitreous detachment of left eye H43.812 Morbid obesity E66.01 Status post total knee replacement, left Z96.652 Family history of [place] (myocardial infarct ion) Z82.49
--- OUTSIDE RECORDS SUMMARY | 2025-04-16 00:55 | XMS_ITS | Encounter Summary ---
Author Organization [facility] Healthcare Address [address] [place] [address] Care Team Providers Care Sheet Tailer Name Role Phone Erick Shafre MD Primary Care Provider [phone] Reason for Visit * Reason Onset Date Comments Symptom Based Call 04/04/2025 Encounter Details Date Type Department Care Team (Late st Contact Info) Description 04/04/2025 Telephone [facility] Family Medicine at [address] [phone] Erick Shafer MD [address] [place] [address] Symptom Based Call Social History Tobacco Use Types Packs/Day Years [...] on file 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 * Telephone Encounter - Amy Campoverde RN - 04/04/2025 2:59 PM CDT Needs follow up in the office * Telephone Encounter - Bren Hudson MA - 04/04/2025 2:10 PM CDT Symptom Based Call Chief Complaint(s): blood in her urine Duration: for about a month What type of symptom(s) is the patient experiencing? Non-Emergent. Is this a new or reoccurring symptom(s)? New What have you tried to help your symptom(s)? She did go to urgent care and was given Keflex Why was appointment not scheduled? Appointment availability did not meet the patient's need. Additional Comments: Patient went to Urgent Care last month for blood in her urine to what she thought was a UTI. They did do a culture and gave her Keflex. The culture came back with no bacteria. She said though she is still having blood in her urine. No pain, or burning. No foul odor, no dark colored urine. She is having hip surgery on 04/16 so she is hoping to get this resolved. She is hoping for a call and not an email or anything. Please advise and thank you so much. Does message need to be routed? Yes-Action Needed documented in this encounter Plan of Treatment Not on file documented as of this encounter Visit Diagnoses Not on filedocumented in this encounter Care Teams Sheet Tailer Relationship Specialty Start Date End Date Erick Shafer MD PCP - General Family Medicine 06/15/24 documented as of this encounter
--- OUTSIDE RECORDS SUMMARY | 2025-04-16 00:55 | XMS_ITS | Clinical Summary ---
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 Mechanic Name Role Phone Erick Shafer MD Primary Care Provider [phone] Allergies Active Allergy Reactions Criticality Noted Date [...] (40 mg total) by mouth daily Active potassium chloride ER 20 mEq CR tablet Take 1 tablet (20 mEq total) by mouth as needed Active Active Problems No known active problems Encounters Date Type Department Care Team Description 04/15/2025 Results Follow-Up [facility] Medical Group Family Medicine at [address] [place] [address] Kassandra Salazar PA Dexa Axial Skeleton Bone Density 1 Or 2 Site 04/12/2025 8:50 AM CDT - 04/12/2025 11:59 PM CDT Hospital Encounter [facility] Medical Office Bldg 1 [facility] 1414 [facility] 220 [place] [address] Postmenopausal status Discharge Disposition: Discharge to home or self care 04/11/2025 10:00 AM CDT - 04/11/2025 11:59 PM CDT Hospital Encounter [facility] Medical Office Building [address] [place] [address] Opacity of lung on imaging study Discharge Disposition: Discharge to home or self care 04/10/2025 Orders Only [facility] Health Information Management [address] [place] [address] Ventura Grace MD 04/09/2025 Telephone [facility] Medical [facility] Family Medicine at [address] [address] Kassandra Salazar PA Total hip replacement 04/07/2025 Results Follow-Up [facility] Medical [facility] Family Medicine at [address] [place] [address] Kassandra Salazar PA Urine culture Urine, bladder 04/05/2025 11:14 AM CDT - 04/05/2025 11:59 PM CDT Hospital Encounter [facility] Medical Office Bldg [address] [place] [address] Hematuria, unspecified type Discharge Disposition: Discharge to home or self care 04/05/2025 10:15 AM CDT Office Visit [facility] Medical [facility] Family Medicine at [address] [place] [address] Kassandra Salazar PA Hematuria, unspecified type (Primary Dx) 04/04/2025 Telephone [facility] Medical [facility] Family Medicine at [address] [place] [address] Erick Shafer MD Symptom Based Call 03/25/2025 Telephone [facility] Family Medicine at [address] [place] [phone] Erick Shafer MD Forms Request 03/03/2025 Results Follow-Up [facility] Family Medicine at [address] [place] [phone] Erick Shafer MD MRI Thoracic Spine WO Contrast, TSH, Thyroid peroxidase antibody (TPO) 02/27/2025 3:24 PM CDT - 02/27/2025 11:59 PM CDT Hospital Encounter [facility] MRI [address] [place] [address] Lesion of bone of thoracic spine Discharge Disposition: Discharge to home or self care 02/06/2025 Telephone [facility] Medicine at [address] [address] Erick Shafer MD Surgical Clearance 01/22/2025 Results Follow-Up [facility] Medicine at [address] [place] [phone] Abdomen Pelvis WO Contrast 01/19/2025 8:33 AM CDT - 01/19/2025 11:59 PM CDT Hospital Encounter [facility] [address] [place] [address] Abdominal pain, bilateral lower quadrant Discharge Disposition: Discharge to home or self care 01/14/2025 Telephone [facility] Family Medicine at [address] [place] [address] Erick Shafer MD Symptom Based Call from Last 3 Months Immunizations Immunization Administration Dates Next Due H1N1 Inj 08/30/2009 Influenza Virus Vaccine Trivalent Mdv 07/20/2019 ,06/19/2019,06/14/2019 Influenza, Quad, Adjuvantate d, Intramuscular 07/24/2022 Influenza, Quadrivalent, Hig h Dose, Preservative Free, Intrr 08/05/2021 Influenza, Trivalent, High D ose, Split, Preservative Free, Intramuscular 08/05/2018,06/27/2016,07/24/2015,07/07,07/08/2013,07/22/2011 Influenza, Trivalent, IM (MDV) 07/30/2010,2008,08/15/2001 Influenza, Trivalent, Preser vative Free, Intramuscular 05/30/2020,09/23/2017 Influenza, Unspecified 06/12/2024(Deferr ed: Patient Refused),06/12/2023(Deferred: Patient Refused) Moderna SARS-CoV-2 Monovalen t Vaccination (12+ [...] on file Legal Sex Female 5:10 PM [employer] Gender Identity Not on file Sexual Orientation Not on file Obstetrics History Last Filed Vital Signs Vital Sign Reading Time Taken Comments Blood Pressure 134/68 04/05/2025 10:17 AM CDT Pulse 54 04/05/2025 10:17 AM CDT Temperature 36.7 C (98.1 F) 04/05/2025 10:17 AM CDT Respiratory Rate - - Oxygen Saturation 97% 04/05/2025 10:17 AM CDT Inhaled Oxygen Concentration - - Weight 86.6 kg (191 lb) 04/05/2025 10:17 AM CDT Height 154.9 cm (5' 1) 04/05/2025 10:17 AM CDT Body Mass Index 36.09 04/05/2025 10:17 AM CDT Plan of Treatment Health Maintenance Due Date Last Done Comments Hepatitis C Screening 1945 DTaP/Tdap/Td Vaccine (1 - Tdap) 1957 Hepatitis B Screening 1964 Zoster Vaccine (1 of 2) 1996 Covid-19 Vaccine (4 2023-2 5 season) 2024 08/05/2021, 10/20/2020, 09/24/2020 Influenza Vaccine (#1) 2025 , 08/05/2021, 05/30/2020, Additional history exists Fall Risk Assessment 01/03/2026 01/03/2025, 05/15/20 Well Visit 65+ 01/03/2026 01/03/2025 Depression Screening 04/05/2026 04/05/2025, 01/03/2025, 05/15/2024 Osteoporosis Screening-Bone Density Scan 04/12/2027 04/12/2025 Pneumococcal vaccine 65+ Completed 017, 09/12/2015, 08/15/2001 Procedures Procedure Name Priority Date/Time Associated Diagnosis Comments DEXA AXIAL SKELETON BONE DENSITY 1 OR MORE SITES Schedule Routine, Read Routine (OP Routine) 04/12/2025 9:17 AM CDT Postmenopausal status CARDIOLOGY DOCUMENT SCAN 04/10/2025 URINE CULTURE Routine 04/05/2025 11:10 AM CDT Hematuria, unspecified type POCT URINALYIS TEST Routine 04/05/2025 10:35 AM CDT Hematuria, unspecified type SCANNED LABS Routine 03/25/2025 THYROID PEROXIDASE ANTIBODY Routine 03/21/2025 1:02 PM CDT Goiter TSH Routine 03/21/2025 1:02 PM CDT Goiter MRI THORACIC SPINE WO CONTRAST Schedule Routine, Read Routine (OP Routine) 02/27/2025 5:12 PM CDT Lesion of bone of thoracic spine ECG 12-LEAD Routine 01/29/2025 SCANNED LABS Routine 01/29/2025 CT ABDOMEN PELVIS WO CONTRAST Schedule Routine, Read Routine (OP Routine) 01/19/2025 8:38 AM CDT Abdominal pain, bilateral lower quadrant from Last 3 Months Results * Dexa Axial Skeleton Bone Density 1 Or 2 Site (04/12/2025 9:17 AM CDT) Anatomical Region Laterality Modality Body N/A Mammography 04/12/2025 11:0 8 AM CDT Narrative 04/12/2025 11:09 AM CDT EXAM DESCRIPTION: DEXA AXIAL SKELETON BONE DENSITY 1 OR MORE SITES REASON FOR STUDY: 79 y/o year old F with given history of: Postmenopausal status. Patient has taken/is taking Fosamax, hormone replacement therapy and vitamin-D. Health Nurse/Model: [facility] A (S/N [id number]) Facility LSC value of 0.022 for the AP spine, 0.027 for the femur, and 0.023 for the forearm. CLINICAL INFORMATION: Current height: 59.7 inches Maximum height: 61 inches Weight: 191 pounds Risk factors: None COMPARISON: None available FINDINGS: AP LUMBAR SPINE L1-L4: Total BMD is 1.356 g/cm2 T-score is 2.8 Measured BMD is thought to be spuriously elevated due to facet arthropathy. LEFT HIP: Total BMD is 0.985 g/cm2 T-score is 0.3 Femoral neck BMD is 0.894 g/cm2 T-score is 0.4 FRAX: FRAX not reported due to T-scores of hip, femoral neck and/or spine being at or above -1.0 (Normal). IMPRESSION: 1. Normal bone mass. REFERENCE: Bone mineral density: T-Score: Normal (T-score above or = -1.0) Low bone mass (T-score between -1.0 and -2.5) replaces the previously used term osteopenia Osteoporosis (T-score = or below -2.5) Z-Score: Within the expected range for age (Z-score above -2.0) Below the expected range for age (Z-score is -2.0 or below) Please see below follow up recommendations. Medical evaluation for secondary causes of low bone mineral density may be appropriate. FRAX is a World Health Organization validated fracture risk assessment tool that calculates a person's 10 year probability of a major osteoporosis related fracture and hip fracture. According to the National Osteoporosis Foundation guidelines, postmenopausal women and men age 50 or older with low bone mass and a 10 year probability of a major osteoporosis related fracture = or greater than 20% or a 10 year probability of a hip fracture = or greater than 3% should be considered for pharmacological treatment for the prevention of osteoporosis. For further information, including treatment recommendations, please refer to the 2019 ISCD Official Positions (http://www.iscd.org) and the NOF's Clinician's Guide to Prevention and Treatment of Osteoporosis (http://www.nof.org/professionals/clinical-guidelines) THIS IS AN ELECTRONICALLY VERIFIED FINAL REPORT 04/12/2025 11:09 AM - Electronically signed by Dori Tong M.D. TW: TW Report ID: [id number] Reading Location: [id number] Procedure Note Dori Tong MD - 04/12/2025 EXAM DESCRIPTION: DEXA AXIAL SKELETON BONE DENSITY 1 OR MORE SITES REASON FOR STUDY: 79 y/o year old F with given history of:Postmenopausal status. Patient has taken/is taking Fosamax, hormone replacement therapyand vitamin-D. Health Nurse/Model: [facility] A (S/N [id number]) Facility LSC value of 0.022 for the AP spine, 0.027 for the femur, and0.023 for the forearm. CLINICAL INFORMATION: Current height: 59.7 inches Maximum height: 61 inches Weight: 191 pounds Risk factors: None COMPARISON: None available FINDINGS: AP LUMBAR SPINE L1-L4: Total BMD is 1.356 g/cm2 T-score is 2.8 Measured BMD is thought to be spuriously elevated due to facetarthropathy. LEFT HIP: Total BMD is 0.985 g/cm2 T-score is 0.3 Femoral neck BMD is 0.894 g/cm2 T-score is 0.4 FRAX: FRAX not reported due to T-scores of hip, femoral neck and/or spine beingat or above -1.0 (Normal). IMPRESSION: 1. Normal bone mass. REFERENCE: Bone mineral density: T-Score: Normal (T-score above or = -1.0) Low bone mass (T-score between -1.0 and -2.5) replaces thepreviously used term osteopenia Osteoporosis (T-score = or below -2.5) Z-Score: Within the expected range for age (Z-score above -2.0) Below the expected range for age (Z-score is -2.0 or below) Please see below follow up recommendations. Medical evaluation forsecondary causes of low bone mineral density may be appropriate. FRAX is a World Health Organization validated fracture risk assessmenttool that calculates a person's 10 year probability of a major osteoporosisrelated fracture and hip fracture. According to the National OsteoporosisFoundation guidelines, postmenopausal women and men age 50 or older with low bonemass and a 10 year probability of a major osteoporosis related fracture = or greater than 20% or a 10 year probability of a hip fracture = or greaterthan 3% should be considered for pharmacological treatment for the preventionof osteoporosis. For further information, including treatment recommendations, please referto the 2019 ISCD Official Positions (http://www.iscd.org) and the NOF's Clinician's Guide to Prevention and Treatment of Osteoporosis (http://www.nof.org/professionals/clinical-guidelines) THIS IS AN ELECTRONICALLY VERIFIED FINAL REPORT 04/12/2025 11:09 AM - Electronically signed by Dori Tong M.D. TW: TW Report ID: [id number] Reading Location: [id number] Erick Shafer MD IMG DXA PROCEDURES Final Resu lt * Cardiology Document Scan (04/10/2025) Anatomical Region Laterality Modality Other Ventura Grace MD CV CARDIAC SERVICES PROCEDUR ES Edited Result - Final * Urine culture Urine, bladder (04/05/2025 11:10 AM CDT) Report Final Report: Less than 100,000 colonies/mL (clinically insignificant growth based on current clinical standards) Comment:Testing performed by : [facility], [address] [place]., [address] Organism (CLINICALLY INSIGNIFICANT GROWTH [facility] Urine, bladder 04/05/2025 11 :10 AM CDT 04/05/2025 3:56 PM CDT Narrative LIZ - 04/06/2025 5:14 PM CDT Testing performed by [facility] Microbiology Laboratory ([phone]) Kassandra Salazar OR LAB MICROBIOLOGY - GENER AL ORDERABLES Final Result [facility] [address] [facility] Department [place] [address] * (ABNORMAL) POCT URINALYIS TEST (04/05/2025 10:35 AM CDT) Color, Urine, POC Brown Clarity, ur, POC Turbid(A) Clear Glucose, ur, POC Negative Negative Bilirubin, ur, POC Small(A) Negative Ketones, ur, POC Trace(A) Negative Specific Waggoner, POC 1.025 1.003 - 1.030 Blood, ur, POC Large(A) Negative pH, ur, POC 5.5 5.0 - 8.0 Protein, ur, POC 3+(A) Negative Urobilinogen, Urine, POC 0.2 <2 MG/DL Leukocytes, ur, POC Trace(A) Negative Nitrite, ur, POC Negative Negative Appearance, fld Turbid(A) Clear Urine 04/05/2025 10:3 5 AM CDT Kassandra Cutler POINT OF CARE TEST ORDER GRACE Final Result * Scanned Labs (03/25/2025) 03/25/2025 Historical Provider LAB BLOOD ORDERABLES Arabella l Result Performing Organization Address City/[facility]/ZIP Co de Phone Number EXTERNAL LAB * Thyroid peroxidase antibody (TPO) (03/21/2025 1:02 PM CDT) Thyroperoxidase ab 1 <9 IU/mL [facility] Blood 03/21/2025 1:02 PM CDT 03/21/2025 1:03 PM CDT Erick Shafer MD LAB BLOOD ORDERABLES Final Re sult Performing Organization Address [facility] Co de Phone Number [facility] [address] [place] [address] * TSH (03/21/2025 1:02 PM CDT) TSH 0.41 0.40 - 4.50 mIU/L [facility] Blood 03/21/2025 1:02 PM CDT 03/21/2025 1:03 PM CDT Erick Shafer MD LAB BLOOD ORDERABLES Final Re sult Performing Organization Address [facility] Co de Phone Number [facility] [address] [place] [address] * MRI Thoracic Spine WO Contrast (02/27/2025 [...] Incompletely imaged. Partially visualized cervical spondylosis with eeaw-nb-gnhnvpie spinal canal stenosis at C5-C6. UPPER LUMBAR: [...] Kishor Carr M.D. MM T: Report ID: [id number] Reading Location: [place] [address] Procedure Note Kishor Carr MD - 02/28/2025 [...] Incompletely imaged. Partially visualized cervical spondylosis with gifh-fu-evuommpr spinal canal stenosis at C5-C6. UPPER LUMBAR: [...] Kishor Carr M.D. MM T: Report ID: [id number] Reading Location: [id number] Erick Shafer MD IMG MRI PROCEDURES Final [...] Carrillo Cabral M.D. JR T: Report ID: [id number] Reading Location: [id number] Procedure Note Carrillo Cabral MD - 01/19/2025 [...] by Carrillo Cabral M.D. T: Report ID: [id number] Reading Location: [place] [address] Erick Shafer MD IM CT PROCEDURES Final Resul t from Last 3 Months Insurance [facility] Care Teams Rail Car Maintenance Mechanic Relationship Specialty Start Date End Date Erick Shafer MD PCP - General Family Medicine 06/15/24
--- OUTSIDE RECORDS SUMMARY | 2025-04-16 00:55 | XMS_ITS | Clinical Summary ---
Author Organization [facility] Address [address] [place] [address] Care Team Providers Care Medical Translator Name Role Phone Daisha Blackman MD Primary Care Provider [phone] Hernando Ackerman MD Unavailable Allergies Active Allergy [...] trivalent, adjuva nted (CVX 168) 07/20/2019,06/19/2019,06/14/2019 Novel [id number] (CVX 127) 08/30/2009 Pneumococcal Conjugate PCV 1 [...] Health Maintenance Insurance MEDICARE A & B [facility] MEDICARE SUPPLEMENT Care Teams Medical Translator Relationship Specialty Start Date End Date Daisha Blackman MD PCP - General 09/12/19 Hernando Ackerman MD [address] [place] [address] Consulting Physician Radiation Oncology 02/17/21
--- OUTSIDE RECORDS SUMMARY | 2025-04-16 00:55 | XMS_ITS | Encounter Summary ---
Author Organization [facility] Healthcare Address [address] [place] [address] Care Team Providers Care Managing Director Atlas Name Role Phone Erick Shafer MD Primary Care Provider [phone] Reason for Referral * MRI/CAT/PET Scan (Routine) - Closed Specialty Diagnoses / Procedures Referred By Contac t Referred To Contact Radiology Diagnoses Opacity of lung on imaging study Procedures CT Chest WO Contrast Erick Shafer MD [address] [place] [address] DR ALVES [address] [place] [address] Phone: tel: fax: [address] [address] Referral ID Status Reason Start Date Expiration Date Visits Re quested Visits Authorized [id number] Closed 03/08/2025 04/07/2026 1 1 * Diagnostic Imaging (Routine) - Authorized Specialty Diagnoses / Procedures Referred By Contac t Referred To Contact Diagnoses Goiter Procedures US Thyroid Erick Shafer MD [address] [place] [address] DR ALVES [address] [place] [address] Phone: tel: fax: [address] [phone] Referral ID Status Reason Start Date Expiration Date V isits Requested Visits Authorized [id number] Authorized 03/08/2025 04/07/2026 1 1 Encounter Details Date Type Department Care Team (Late st Contact Info) Description 03/03/2025 Results Follow-Up [facility] Medical Group Family Medicine at [address] [place] [phone] Erick Shafer MD [address] [place] [address] [address] [place] [address] MRI Thoracic Spine WO Contrast, TSH, Thyroid peroxidase antibody (TPO) Social History Tobacco Use Types Packs/Day Years [...] on file 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 Gender Identity Not on file Sexual Orientation Not on file documented as of this encounter Plan of Treatment Pending Results Name Type Priority Associated Diagnoses Date /Time CT Chest WO Contrast Imaging Schedule Routine, Read Routine (OP Routine) Opacity of lung on imaging study 04/11/2025 10:13 AM CDT Scheduled Orders Name Type Priority Associated Diagnoses Orde r Schedule US Thyroid Imaging Schedule Routine , Read Routine (OP Routine) Goiter Expected: 03/08/2025, Expires: 03/08/2026 CT Chest WO Contrast Imaging Schedule Routine, Read Routine (OP Routine) Opacity of lung on imaging study Expected: 03/08/2025, Expires: 03/08/2026 documented as of this encounter Procedures Procedure Name Priority Date/Time Associated Diagnosis Comments THYROID PEROXIDASE ANTIBODY Routine 03/21/2025 1:02 PM CDT Goiter TSH Routine 03/21/2025 1:02 PM CDT Goiter documented in this encounter Results * Thyroid peroxidase antibody (TPO) (03/21/2025 1:02 PM CDT) Thyroperoxidase ab 1 <9 IU/mL [facility] Blood 03/21/2025 1:02 PM CDT 03/21/2025 1:03 PM CDT us Erick Shafer MD LAB BLOOD ORDERABLES Final Re sult Performing Organization Address City/[facility]/ZIP Co de Phone Number [facility] [address] [place] [address] * TSH (03/21/2025 1:02 PM CDT) TSH 0.41 0.40 - 4.50 mIU/L [facility] Blood 03/21/2025 1:02 PM CDT 03/21/2025 1:03 PM CDT us Erick Shafer MD LAB BLOOD ORDERABLES Final Re sult [facility] [address] [place] [address] documented in this encounter Visit Diagnoses Diagnosis Goiter- Primary Goiter, unspecified Opacity of lung on imaging study documented in this encounter Care Teams Managing Director Atlas Relationship Specialty Start Date End Date Erick Shafer MD PCP - General Family Medicine 06/15/24 documented as of this encounter
--- OUTSIDE RECORDS SUMMARY | 2025-04-16 00:55 | XMS_ITS | Encounter Summary ---
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
--- OUTSIDE RECORDS SUMMARY | 2025-04-16 00:55 | XMS_ITS | Patient Health Record ---
Author Organization [facility] Address [address] [place] [address] Support Name Relationship Address Phone Divya Fair Guarantor Unknown [phone] Reason For Referral No Information Problems Problem Type SNOMED Code ICD Code Onset Dates Problem Status W/U Status Risk Notes Problem Morbid obesity (616179339) Morbid obesity (E66.01) Active confirmed Problem Hypertension (58625532) HTN (hypertension ) (I10) Active confirmed Problem Allergic rhinitis (14326308) Allergic rhinitis (J30.9) Active confirmed Problem Coronary artery disease (47736649) CAD (coronary artery disease) (I25.10) Active confirmed Problem S/P lumpectomy, right breast (Z98.89) Active confirmed Problem Family history of ischemic heart disease (588108420) Family history of ME (myocardial infarction) (Z82.49) Active confirmed Mother, at age 89 years, had ME Problem Epiretinal membrane (623668942) Epiretinal membrane, both eyes (H35.373) Active confirmed Problem Vitreous detachment of left eye (216473275592606 ) 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89 Epiretinal membrane, both eyes H35.373 Vitreous detachment of left eye H43.812 Morbid obesity E66.01 Status post total knee replacement, left Z96.652 Family history of ME (myocardial infarct ion) Z82.49
--- OUTSIDE RECORDS SUMMARY | 2025-04-16 00:55 | XMS_ITS | Referral Summary ---
Author Organization [facility] Virtual Care Address [address] [place] [phone] Phone Care Team Providers Care Pet Care Assistant Name Role Phone Erick Shafer MD Primary Care Provider [phone] Encounters Date Type Department Care Team Description 04/15/2025 Results Follow-Up [facility] Family Medicine at [address] [place] [address] Kassandra Salazar PA Dexa Axial Skeleton Bone Density 1 Or 2 Site 04/12/2025 8:50 AM CDT - 04/12/2025 11:59 PM CDT [facility] [address] [phone] Postmenopausal status Discharge Disposition: Discharge to home or self care 04/11/2025 10:00 AM CDT - 04/11/2025 11:59 PM CDT [facility] [address] [place] [phone] Opacity of lung on imaging study Discharge Disposition: Discharge to home or self care 04/10/2025 Orders Only [facility] Health Information Management [address] [place] [address] Ventura Grace MD 04/09/2025 Telephone [facility] Family Medicine at [address] [place] [address] Kassandra Salazar PA Total hip replacement 04/07/2025 Results Follow-Up [facility] Family Medicine at [address] [address] Kassandra Salazar PA Urine culture Urine, bladder 04/05/2025 11:14 AM CDT - 04/05/2025 11:59 PM CDT Hospital Encounter [facility]ld[facility] [address] [place] [phone] Hematuria, unspecified type Discharge Disposition: Discharge to home or self care 04/05/2025 10:15 AM CDT Office Visit [facility] at [address] [address] Kassandra Salazar PA Hematuria, unspecified type (Primary Dx) 04/04/2025 Telephone [facility] Family Medicine at [address] [address] Erick Shafer MD Symptom Based Call 03/25/2025 Telephone [facility] at [address] [address] Erick Shafer MD Forms Request 03/03/2025 Results Follow-Up [facility] at [address] [address] Erick Shafer MD MRI Thoracic Spine WO Contrast, TSH, Thyroid peroxidase antibody (TPO) 02/27/2025 3:24 PM CDT - 02/27/2025 11:59 PM CDT Hospital Encounter [facility] MRI [address] [place] [address] Lesion of bone of thoracic spine Discharge Disposition: Discharge to home or self care 02/06/2025 Telephone [facility] at [address] [address] Erick Shafer MD Surgical Clearance 01/22/2025 Results Follow-Up [facility] Family Medicine at [address] [place] [address] Abdomen Pelvis WO Contrast 01/19/2025 8:33 AM CDT - 01/19/2025 11:59 PM CDT Hospital Encounter [facility] [address] [place] [address] Abdominal pain, bilateral lower quadrant Discharge Disposition: Discharge to home or self care 01/14/2025 Telephone [facility] Family Medicine at [address] [place] [address] Erick Shafer MD Symptom Based Call from Last 3 Months Allergies Active Allergy [...] on file 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 Animal Control Officer/Model: Thing5 A (S/N [id number]) Facility LSC value of 0.022 for the [...] Electronically signed by Dori Tong M.D. TW: BRUCE Report ID: [id number] Reading Location: [id number] Procedure Note Dori Tong MD - 04/12/2025 EXAM DESCRIPTION: DEXA AXIAL SKELETON BONE DENSITY 1 OR MORE SITES REASON FOR STUDY: 79 y/o year old F with given history of:Postmenopausal status. Patient has taken/is taking Fosamax, hormone replacement therapyand vitamin-D. Animal Control Officer/Model: Thing5 A (S/N [id number]) Facility LSC value of 0.022 for the [...] Dori Tong M.D. TW: TW Report ID: [id number] Reading Location: [id number] us Erick Shafer MD IMG DXA PROCEDURES Final Resu lt * Cardiology Document Scan (04/10/2025) Anatomical Region Laterality Modality Other us Ventura Grace MD CV CARDIAC SERVICES PROCEDUR ES Edited Result - Final * Urine culture Urine, bladder (04/05/2025 11:10 AM CDT) Report Final Report: Less than 100,000 colonies/mL (clinically insignificant growth based on current clinical standards) Comment:Testing performed by : [facility], [address] [facility], [place]., [address] Organism (CLINICALLY INSIGNIFICANT GROWTH LIZ Urine, bladder 04/05/2025 11 :10 AM CDT 04/05/2025 3:56 PM CDT Narrative LIZ - 04/06/2025 5:14 PM CDT Testing performed by [facility] Microbiology Laboratory ([phone]) us Kassandra Cutler LAB MICROBIOLOGY - GENER AL ORDERABLES Final Result LIZ [address] [facility] Department [place] [address] * (ABNORMAL) POCT URINALYIS TEST (04/05/2025 10:35 AM CDT) Color, Urine, POC Brown Clarity, ur, POC Turbid(A) Clear Glucose, ur, POC Negative Negative Bilirubin, ur, POC Small(A) Negative Ketones, ur, POC Trace(A) Negative Specific [place], POC 1.025 1.003 - 1.030 Blood, ur, POC Large(A) Negative pH, ur, POC 5.5 5.0 - 8.0 Protein, ur, POC 3+(A) Negative Urobilinogen, Urine, POC 0.2 <2 MG/DL Leukocytes, ur, POC Trace(A) Negative Nitrite, ur, POC Negative Negative Appearance, fld Turbid(A) Clear Urine 04/05/2025 10:3 5 AM CDT us Kassandra Cutler POINT OF CARE TEST ORDER GRACE Final Result * Scanned Labs (03/25/2025) 03/25/2025 Historical Provider LAB BLOOD ORDERABLES Arabella l Result EXTERNAL LAB * Thyroid peroxidase antibody (TPO) (03/21/2025 1:02 PM CDT) Pathologist [facility] Thyroperoxidase ab 1 <9 IU/mL [facility] Blood 03/21/2025 1:02 PM CDT 03/21/2025 1:03 PM CDT Erick Shafer MD LAB BLOOD ORDERABLES Final Re sult [facility] [address] [place] [address] * TSH (03/21/2025 1:02 PM CDT) Pathologist [facility] TSH 0.41 0.40 - 4.50 mIU/L [facility] Blood 03/21/2025 1:02 PM CDT 03/21/2025 1:03 PM CDT us Erick Shafer MD LAB BLOOD ORDERABLES Final Re sult [facility] [address] [address] * MRI Thoracic Spine WO Contrast (02/27/2025 [...] Incompletely imaged. Partially visualized cervical spondylosis with uagn-kv-itydurwr spinal canal stenosis at C5-C6. UPPER LUMBAR: [...] Kishor Carr M.D. MM T: Report ID: [id number] Reading Location: [place] [address] Procedure Note Kishor Carr MD - 02/28/2025 [...] Incompletely imaged. Partially visualized cervical spondylosis with srjp-vb-kgplxygs spinal canal stenosis at C5-C6. UPPER LUMBAR: [...] Kishor Carr M.D. MM T: Report ID: [id number] Reading Location: [id number] Erick Shafer MD IMG MRI PROCEDURES Final Resu lt * Scanned Labs (01/29/2025) 01/29/2025 us Historical Provider MD LAB BLOOD ORDERABLES Arabella l Result EXTERNAL [...] Carrillo Cabral M.D., JR T: Report ID: [id number] Reading Location: [id number] Procedure Note Carrillo Cabral MD - 01/19/2025 [...] Carrillo Cabral M.D., JR T: Report ID: [id number] Reading Location: [place] [address] Erick Shafer MD IMG CT PROCEDURES Final Resul t from Last 3 Months Insurance [facility] MEDICARE [facility] Care Teams Pet Care Assistant Relationship Specialty Start Date End Date Erick Shafer MD PCP - General Family Medicine 06/15/24
--- NOTE | 2025-04-16 07:16 | WPDHPUPDATE1 ---
History and Physical Update Update Date/Time: 04/16/25 07:16 History and Physical has been reviewed, including an updated exam of the patient. There are NO changes in the patient's condition. Risks, benefits, and alternatives have been discussed and questions answered. Patient agrees to proceed with procedure.
--- NOTE | 2025-04-16 09:22 | P.PNAN_ITS ---
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 Patient Data Age: 79 Gender: F Height: 1.5 m Weight: 87 kg Last Vital Signs Temp 36.7 C 03/25/25 10:39 Pulse 53 L 03/25/25 10:39 Resp 18 03/25/25 10:39 BP 128/76 03/25/25 10:39 Pulse Ox 97 03/25/25 10:39 O2 Del Method Room Air 03/25/25 10:39 Allergies Allergy/AdvReac Type Severity Reaction Status Date / Time adhesive tape Allergy Intermediate Rash Verified 03/25/25 09:55 Home Medications ?Medication ?Instructions ?Recorded ?Confirmed ?Type furosemide 40 mg tablet (Lasix) 40 mg PO QAM 03/30/21 03/25/25 History amlodipine 10 mg tablet 10 mg PO DAILY #90 tabs 07/09/22 03/25/25 Rx lisinopril 40 mg tablet 40 mg PO DAILY 03/07/23 03/25/25 History trazodone 50 mg tablet 25 mg PO QHS PRN sleep 03/07/23 03/25/25 History metoprolol tartrate 50 mg tablet 50 mg PO BID #180 tabs 04/11/23 03/25/25 Rx potassium chloride 20 mEq 20 meq PO HS 03/25/25 03/25/25 History tablet,extended release cephalexin 500 mg capsule 500 mg PO BID 7 days #14 caps 03/30/25 Rx Patient hx anesthesia problems: none Family hx anesthesia problems: none Results Review: All pre-operative results and documents have been reviewed as part of the pre- operative evaluation. [facility] Past Medical History Medical History Breast cancer Essential (primary) hypertension Mixed hyperlipidemia History of breast cancer Hypertension Surgical History Surgical History Hx laparoscopic cholecystectomy Hx of appendectomy History of partial hysterectomy History of total right knee replacement (~03/20/19) History of total left knee replacement (~05/16/12) H/O lumbar discectomy (~1993) History of lumpectomy of right breast (~09/08/18) Family History Family History Other Diabetes mellitus Family history of cardiovascular disease Family history of thyroid disease Hypertension Social History Social History Smoking packs per day: 0.5 Smoking cigarettes per day: 10.0 Years smoked: 15 Smoking pack-years: 7.50 Smoking status: Former smoker Tobacco type: cigarettes Second hand tobacco smoke exposure: Yes Smoking end date: 09/12/90 Additional smoking assessment comments: DENIES ANY FORM OF TOBACCO USE Alcohol intake: former Alcohol use details: very rarely Substance use: never Lack of Transportation: No Lack of Food: Never True Current Housing: I Have Housing Concerned About Future Housing: No Difficulty Paying Gas/Electric Bills: No Difficulty Paying for Meds: No Currently Unemployed: No Difficulty w/ Childcare or Family Care: No Living arrangements: with family Occupation/Education: retired Gender identity (if verbalized by the patient): Female Sexual Orientation (if Verbalized by the Patient): Straight or Heterosexual Spiritual care concerns: No Agree to blood products: Yes Anes - Eval Final PreProcedure Day of Procedure 04/16/25 09:22 Patient weight: obese Heart: regular rate and rhythm Lungs: clear to auscultation Airway: Mallampati scale class III Neurological: alert and oriented Last oral intake: >/= 8 hours ASA classification: III Emergent: no Anesthetic plan: proceed Anesthesia type and monitoring: general ETT and standard monitoring Results Review: All pre-operative results and documents have been reviewed as part of the pre- operative evaluation. Informed Consent: The patient's anesthetic plan and its attendant risks and benefits were discussed with the patient/family/POA. Questions were solicited and answers provided to the satisfaction of the patient/family/POA.
[2025-04-16] MEDS: ACETAMINOPHEN 500 MG TABLET 1000 MG PO (09:50)
[2025-04-16] MEDS: TRANEXAMIC ACID 1,000MG/ISO100 1,000 MG/100 ML BAG 200 MG IVPB (09:50)
[2025-04-16] MEDS: LACTATED RINGERS 1,000 ML 30 ML IV CONT ×2 (09:50→12:56)
[2025-04-16] MEDS: ceFAZolin 2 GM in SODIUM CHLORIDE 0.9% IV 50 ML 100 ML IVPB (11:13)
[2025-04-16] MEDS: SODIUM CHLORIDE 0.9% IV 37.7 ML, MORPHINE SULFATE INJ (*CRX) 2 MG, ROPivacaine HCL 1% 2... INFILTRATE (11:13)
[2025-04-16] MEDS: TRANEXAMIC ACID 1,000 MG/10 ML AMPUL 1000 MG IV PUSH (12:29)
--- NOTE | 2025-04-16 13:02 | W.PM.PROC2 ---
Procedure Note - Detailed Date of Procedure 04/16/25 Pre-op Diagnosis Left hip degenerative arthritis. Post-op Diagnosis Same Procedure Performed Left Total Hip Arthroplasty Surgeon Jj Mishra MD Anesthesia General Description of Procedure The patient was given preoperative antibiotics. A general anesthetic was administered. The patient was carefully placed in the lateral decubitus position on the PEG board. The shoulders and hips were carefully positioned for component and leg length positioning reference. The hip was prepped and draped in the usual sterile fashion. A longitudinal incision was created over the posterior aspect of the greater trochanter. Careful dissection was brought down through the deep fascia with electrocautery. A minimally invasive optimized posterior approach to the hip was performed. The short external rotators and capsule were taken down in an L-shaped capsulotomy. The tissue was tagged for later repair using number 2 high strength suture. The femoral neck was measured and taken in situ. The femoral head was removed. The acetabulum was carefully exposed. The inferior capsule was released. The labrum was resected. The acetabulum was sequentially reamed to the intended cup size. The cup was impacted into position with excellent press-fit. Typical anatomic landmarks, including the bony contact points as well as the inferior transverse acetabular ligament were used to confirm cup positioning with preoperative templating. Attention was turned to the femur, which was carefully exposed. The hip was reamed and then broached sequentially. Excellent press-fit was obtained with the broach. The hip was trialed. Measurements were utilized, including the lesser trochanter as well as the center of the femoral head and the tip of the trochanter, and excellent assessment of the offset and leg lengths were confirmed. The real component was impacted into position. Trialing confirmed appropriate leg length and offset with soft tissue balancing as well apparent feel of the leg, both at the knee and the heel. Soft tissues were assessed using the the iliotibial band. Reduction of the posterior capsule and external rotators were also used as a secondary assessment. The hip was copiously irrigated with pulsatile lavage periodically throughout the procedure. The real components were then assembled and reduced. The hip was stable throughout typical maneuvers, including extension, external rotation to 70 degrees, the position of sleep as well as flexion to 90 degrees with internal rotation past 35 degrees. The shake test confirmed stability without impingement. Osteophytes were removed as necessary. The short external rotators and capsule were repaired back to the posterior trochanter through drill holes. The deep fascia was repaired with running number 2 barbed suture, followed by 2-0 Stratafix suture and 3-0 Stratafix suture in the dermis. Steri-Strips were placed on the skin, followed by a sterile occlusive dressing. There were no complications. Meticulous hemostasis was maintained with the AquaMantys device. The patient was brought to the recovery room in stable condition. There were no complications. Implants [employer] hip stem, standard offset size 2 , was utilized with excellent press-fit. The 48 mm Trident II acetabular component was impacted with excellent press-fit stability. Standard polyethylene liner the +2.5, 36 mm Biolox ceramic femoral head was utilized. Estimated Blood Loss 350 Drains No Packing No Pathology None sent Complications No immediate complications Condition Stable Disposition PACU [facility] Billing Surgery - Charge Forward: Surgery Billing
--- NOTE | 2025-04-16 14:38 | PC.NURSE ---
This patient, Divya Fair, was admitted to 3 [facility] Surg Room 304-02 at 1438 from OR. Patient/family oriented to hospital policies and general routines including ID bracelet, bed and alarms, visiting hours, pain management, procedures, bathroom and other care routines, personal items, smoking policy, room service/diet, and visiting hours. Information on how to activate the Rapid Response Team has been discussed. Patient/Family are encouraged to report perceived risks to care and to ask questions if they do not understand what they are told or what they should do.
[2025-04-16] MEDS: METOPROLOL TARTRATE 50 MG TAB PO (18:15)
[2025-04-16] MEDS: ASPIRIN 81 MG ENTERIC TABLET PO (18:16)
[2025-04-16] MEDS: ceFAZolin 2 GM/D5W 50 ML 2 GM/50 ML BAG IVPB (18:16)
[2025-04-16] MEDS: ACETAMINOPHEN 325 MG TABLET 650 MG PO ×2 (18:16→23:51)
[2025-04-16] MEDS: MELOXICAM 7.5 MG TABLET PO (18:16)
--- NOTE | 2025-04-16 19:30 | PC.NURSE ---
On 04/16/25, the SUPERVISOR SCREEN PRINTING, Aruna Bazan, provided care and completed SCHAD documentation on this patient. I have reviewed the SUPERVISOR SCREEN PRINTING's documentation and agree with the findings.
[2025-04-16] MEDS: POTASSIUM CHLORIDE 20 MEQ ER TABLET PO (20:28)
[2025-04-17] MEDS: ceFAZolin 2 GM/D5W 50 ML 2 GM/50 ML BAG IVPB ×2 (01:57→10:54)
[2025-04-17 04:15] VITALS: BP 119/61; PULSE 72; RESP 14; TEMP 36.5; O2SAT 96
[2025-04-17] MEDS: ACETAMINOPHEN 325 MG TABLET 650 MG PO ×2 (05:16→11:26)
[2025-04-17 06:46] LABS: Hematocrit 34.5 % (37.0-47.0); Hemoglobin 11.1 g/dL (12.0-15.0); Immature Granulocyte Percent A 0.4 % (0-0.5); Lymphocytes Absolute Auto 0.68 K/mm3 (0.9-3.2); Mean Corpuscular HGB Conc 32.2 g/dl (32-36); Mean Corpuscular Hemoglobin 30.2 pg (26-34); Mean Corpuscular Volume 93.8 fl (80-100); Nucleated Red Blood Cells Absolute Auto 0.000 K/mm3 (0.0-0.012); Nucleated Red Blood Cells Perc 0.0 % (0.0-0.2); Platelet Count Result 171 k/mm3 (150-375); Red Blood Count 3.68 M/mm3 (4.2-5.4); White Blood Count 9.1 K/mm3 (4.5-10.0)
[2025-04-17 07:08] LABS: Anion Gap 10 mmol/L (4-12); Blood Urea Nitrogen 19 mg/dL (7-17); Calcium 9.0 mg/dL (8.4-10.2); Carbon Dioxide 24 mmol/L (22-30); Chloride 98 mmol/L (98-107); Estimated Glomerular Filt Rate 46; Glucose 124 mg/dL (65-110); Potassium 4.4 mmol/L (3.4-5.0); Sodium 132 mmol/L (137-145)
[2025-04-17 08:15] VITALS: BP 155/68; PULSE 63; RESP 16; TEMP 36.5; O2SAT 97
--- NOTE | 2025-04-17 09:05 | P.PNAN_ITS ---
Anes - Prog Note Post-Op Date/Time: 04/17/25 09:05 Cardiovascular status: normal Respiratory status: normal Airway patency: baseline Mental status: baseline Post-Op hydration status: normal Vital Signs: Last Vital Signs Temp 36.5 C 04/17/25 08:15 Pulse 63 04/17/25 08:15 Resp 16 04/17/25 08:15 BP 155/68 H 04/17/25 08:15 Pulse Ox 97 04/17/25 08:15 O2 Del Method Room Air 04/17/25 08:08 O2 Flow Rate 2 04/16/25 14:25 Pain Score (VAS): 0 I/O: Intake & Output 04/16/25 04/17/25 04/17/25 23:59 07:59 15:59 Intake Total 290 400 Balance 290 400 Laboratory Tests 04/17/25 05:16 04/17/25 05:16 04/16/25 04/17/25 09:43 05:16 WBC 9.1 RBC 3.68 L Hgb 11.1 L D Hct 34.5 L MCV 93.8 MCH 30.2 MCHC 32.2 RDW 12.5 Plt Count 171 MPV 10.6 H Immature Gran % (Auto) 0.4 Neut % (Auto) 83.5 H Lymph % (Auto) 7.5 L [place] % (Auto) 8.5 Eos % (Auto) 0.0 Baso % (Auto) 0.1 L Lymph # (Auto) 0.68 L [place] # (Auto) 0.8 H Eos # (Auto) 0.0 Baso # (Auto) 0.0 Abs Immat Gran (auto) 0.04 H Absolute Neuts (auto) 7.6 H Absolute Nucleated RBC 0.000 Nucleated RBC % 0.0 Sodium 132 L Potassium 4.4 Chloride 98 Carbon Dioxide 24 Anion Gap 10 BUN 19 H Creatinine 1.15 H Estim Creat Clear Calc Not Reportable Estimated GFR 46 L Glucose 124 H Calcium 9.0 Blood Type O Positive Antibody Screen Negative Post-procedural complaints: none Patient Feedback: Patient satisfied with anesthetic care.
[2025-04-17 09:36] VITALS: PULSE 65
[2025-04-17] MEDS: METOPROLOL TARTRATE 50 MG TAB PO (09:36)
[2025-04-17] MEDS: ASPIRIN 81 MG ENTERIC TABLET PO (09:36)
[2025-04-17] MEDS: FUROSEMIDE 40 MG TABLET PO (09:36)
[2025-04-17] MEDS: MELOXICAM 7.5 MG TABLET PO (09:37)
--- NOTE | 2025-04-17 11:40 | PC.NURSE ---
On 04/17/25, the GROUP SALES MANAGER, Aruna Bazan, provided care and completed IRI documentation on this patient. I have reviewed the GROUP SALES MANAGER's documentation and agree with the findings.
== END 2025-04-17 11:40 | disposition home or self-care (01) ==
LOC: ANHSURGERY 13:08 → ANH3MEDSUR 14:41
PROVIDERS: PCP Family Medicine; Visit Provider Orthopaedic Surgery
PROC: (CPT 27130; principal; 2025-04-16 10:30)
DX: M16.12 Unilateral primary osteoarthritis, left hip (principal); Z87.891 Personal history of nicotine dependence; E66.9 Obesity, unspecified; Z68.39 Body mass index [BMI] 39.0-39.9, adult
CPT/HCPCS: 27130; 36415; 73502; 80048; 85025; 86850; 86900; 86901; 97110; 97161; 97165; J0690; A9270; C1776; J0166; J1100; J1171; J1885; J2003; J2270; J2405; J2704; J2795; J3010; J7120

== ENCOUNTER 2025-05-06 09:34 | Emergency (ER) | payer MEDICARE, SELFPAY ==
[2025-05-06] VITALS (30 sets, daily range): BP systolic 75–134; BP diastolic 26–95; PULSE 46–68; RESP 12–22; TEMP 36.4; O2SAT 95–100
--- NOTE | ~2025-05-06 | CT_ITS ---
EXAMINATION: CT brain wo con DATE: 05/06/2025 11:49 INDICATION: Weakness seizure TECHNIQUE: Computed tomography (CT) of the head was performed without intravenous contrast. The dose-length product was 605.33 mGy-cm. COMPARISON: None FINDINGS: No acute intracranial hemorrhage. No mass effect. No midline shift. No hydrocephalus. There are several low density regions scattered throughout the periventricular and deep white matter which are favored to represent chronic ischemic white matter change. Mild cerebral atrophy appropriate for the patient's age. No skull fracture. Visualized paranasal sinuses and mastoid air cells are clear. IMPRESSION: 1. No acute intrarenal hemorrhage. No mass effect. Consider a brain MRI with and without contrast for further assessment. 2. Probable chronic ischemic white matter change. Reviewed, dictated and finalized at location Q. IMPRESSION: 1. No acute intrarenal hemorrhage. No mass effect. Consider a brain MRI with an d without contrast for further assessment. 2. Probable chronic ischemic white matter change.
--- OUTSIDE RECORDS SUMMARY | 2025-05-06 10:15 | XMS_ITS | Encounter Summary ---
Author Organization [facility] Healthcare Address [address] [place] [address] Care Team Providers Care Protocol Officer Name Role Phone Erick Shafer MD Primary Care Provider [phone] Reason for Visit * Reason Onset Date Comments Symptom Based Call 04/04/2025 Encounter Details Date Type Department Care Team (Late st Contact Info) Description 04/04/[address] 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
--- OUTSIDE RECORDS SUMMARY | 2025-05-06 10:15 | XMS_ITS | Clinical Summary ---
Author Organization [facility] Virtual Care Address [address] [place] [phone] Phone Care Team Providers Care Electric Meter Repairer Helper Name Role Phone Erick Shafer MD Primary Care Provider [phone] Allergies Active Allergy Reactions Criticality Noted Date [...] Encounters Date Type Department Care Team Description 05/02/2025 10:40 AM CDT - 05/02/2025 11:59 PM CDT Hospital Encounter [address] [address] Goiter Discharge Disposition: Discharge to home or self care 04/16/2025 Orders Only [facility] Health Information Management [address] [place] [address] Erick Shafer MD 04/15/2025 Results Follow-Up [facility] Family Medicine at [address] [place] [address] Kassandra Salazar PA Dexa Axial Skeleton Bone Density 1 Or 2 Site 04/12/2025 8:50 AM CDT - 04/12/2025 11:59 PM CDT Hospital Encounter [facility] Medical Office Bldg 1 [facility] [address] [address] [place] [address] Postmenopausal status Discharge Disposition: Discharge to home or self care 04/11/2025 10:00 AM CDT - 04/11/2025 11:59 PM CDT Hospital Encounter [facility] Medical Office Building [address] [place] [address] Opacity of lung on imaging study Discharge Disposition: Discharge to home or self care 04/10/2025 Orders Only [facility] Health Information Management [address] [place] [address] Ventura Grace MD 04/09/2025 Telephone [facility] Family Medicine at [address] [address] Kassandra Salazar PA Total hip replacement 04/07/2025 Results Follow-Up [facility] Family Medicine at [address] [address] Kassandra Salazar PA Urine culture Urine, bladder 04/05/2025 11:14 AM CDT - 04/05/2025 11:59 PM CDT Hospital Encounter [facility] Medical Office Bldg [address] [facility] [address] [place] [address] Hematuria, unspecified type Discharge Disposition: Discharge to home or self care 04/05/2025 10:15 AM CDT Office Visit [facility] Family Medicine at [address] [address] Kassandra Salazar PA Hematuria, unspecified type (Primary Dx) 04/04/2025 Telephone [facility] at [address] [phone] Erick Shafer MD Symptom Based Call 03/25/2025 Telephone [facility] at [address] [phone] Erick Shafer MD Forms Request 03/03/2025 Results Follow-Up [facility] at [address] [phone] Erick Shafer MD MRI Thoracic Spine WO Contrast, TSH, Thyroid peroxidase antibody (TPO) 02/27/2025 3:24 PM CDT - 02/27/2025 11:59 PM CDT Hospital Encounter 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 Gender Identity Not on file Sexual [...] Last Done Comments Hepatitis C Screening 1945 Hepatitis B Screening 1963 Zoster Vaccine (2 of 3) 04/28/2009 03/03/2009 Covid-19 Vaccine (4 - 2023-2 5 season) 2024 08/05/2021, 10/20/2020, 09/24/2020 Influenza Vaccine (#1) 2025 , 08/05/2021, 05/30/2020, Additional history exists Fall Risk Assessment 01/03/2026 01/03/2025, 05/15/20 Well Visit 65+ 01/03/2026 01/03/2025 Depression Screening 04/05/2026 04/05/2025, 01/03/2025, 05/15/2024 DTaP/Tdap/Td Vaccine (3 - Td or Tdap) 03/02/2027 03/02/2017, 03/01/2007, 09/12/1989 Osteoporosis Screening-Bone Density Scan 04/12/2027 04/12/2025 Pneumococcal vaccine 65+ Completed 017, 09/12/2015, 02/17/2015, Additional history exists Procedures Procedure Name Priority Date/Time Associated Diagnosis Comments SCAN - RADIOLOGY/IMAGING 04/16/2025 DEXA AXIAL SKELETON BONE DENSITY 1 OR MORE SITES Schedule Routine, Read Routine (OP Routine) 04/12/2025 9:17 AM CDT Postmenopausal status CT CHEST WO CONTRAST Schedule Routine, Read Routine (OP Routine) 04/11/2025 10:13 AM CDT Opacity of lung on imaging study CARDIOLOGY DOCUMENT SCAN 04/10/2025 URINE CULTURE Routine [...] CDT Lesion of bone of thoracic spine from Last 3 Months Results * SCAN - RADIOLOGY/IMAGING (04/16/2025) Anatomical Region Laterality Modality Other us Erick Shafer MD Final Result * Dexa Axial Skeleton Bone Density 1 [...] taking Fosamax, hormone replacement therapy and vitamin-D. Master Mechanic/Model: Hologic Horizon A (S/N [id number]) Facility LSC value of 0.022 for the [...] Dori Tong M.D. TW: TW Report ID: [id number] Reading Location: [place] [address] Procedure Note Dori Tong MD - 04/12/2025 EXAM DESCRIPTION: DEXA AXIAL SKELETON BONE DENSITY 1 OR MORE SITES REASON FOR STUDY: 79 y/o year old F with given history of:Postmenopausal status. Patient has taken/is taking Fosamax, hormone replacement therapyand vitamin-D. Master Mechanic/Model: Hologic Appoet A (S/N [id number]) Facility LSC value of 0.022 for the [...] Dori Tong M.D. TW: BRUCE Report ID: [id number] Reading Location: [place] [address] us Erick Shafer MD IMG DXA PROCEDURES Final Resu lt * CT Chest WO Contrast (04/11/2025 10:13 AM CDT) Anatomical Region Laterality Modality Body N/A Computed Tomogra phy 05/06/2025 8:57 AM CDT Narrative 05/06/2025 9:31 AM CDT EXAM DESCRIPTION: CT CHEST WO CONTRAST REASON FOR STUDY: Abnormal xray - lung opacity/opacities, lung opacity Abnormal xray - lung opacity/opacities, lung opacity, Opacity of lung on imaging study Prior right lumpectomy. Breast cancer about 5 years ago. No symptoms to the chest. TECHNIQUE: CT scan of the chest performed without intravenous contrast using helical scanning technique. Reconstructed coronal and sagittal MPR images reviewed. All images stored on PACS. Automated exposure control was used as a dose optimization technique for this examination. COMPARISON: Thoracic spine MRI 02/27/2025 FINDINGS: The sensitivity for detection of solid visceral lesions is diminished without the use of intravenous contrast. LUNGS: A posteromedial right lower lobe 4.0 x 2.4 cm rounded subpleural opacity appears stable from the prior exam. Left upper lobe 9 mm nodule (series 2, image 42). 3 mm right apical nodule (18). Stable scarring in the left lower lobe and lingula. PLEURA: No effusion. No pneumothorax. MEDIASTINUM/SANDRA: No identified masses or abnormal nodes. HEART: Heart size is normal with no pericardial effusion. CORONARY ARTERY CALCIFICATION: Mild. VASCULATURE: No thoracic aortic aneurysm. AXILLA: No adenopathy. CHEST WALL: No masses. No subcutaneous air. HARDWARE/LINES/TUBES: None. UPPER ABDOMEN: No significant abnormality. MUSCULOSKELETAL: No acute abnormality. Redemonstrated lucent lesions of the T7 and T8 vertebral bodies, characterized as hemangiomas on prior MRI. Severe degenerative disc disease at T7-T8 and T8-T9. OTHER: Enlargement of the left thyroid lobe, with several ill-defined nodules. Please see the follow-up thyroid ultrasound for further evaluation. IMPRESSION: 1. Pulmonary nodules measuring up to 9 mm in the left upper lobe. Repeat chest CT in 3 months is recommended. 2. Right lower lobe subpleural opacity, favoring rounded atelectasis. Attention on follow-up as above. Fleischner society guidelines for incidental lung nodule follow up do not apply for this patient's pulmonary nodules. Generally, Fleischner Society guidelines do not apply to patients that are under 35, immunosuppressed, patients enrolled in lung cancer screening, or patients with known primary cancer. Spencer Society Guidelines do not apply to Intra-fissural, perifissural, and subpleural pulmonary nodules. http://pubs.rsna.org/doi/pdf/10.1148/radiol.3235117603 THIS IS AN ELECTRONICALLY VERIFIED FINAL REPORT 05/06/2025 9:31 AM - Electronically signed by Govind Gunderson M.D. KR: CHANA Report ID: [id number] Reading Location: [place] [address] Procedure Note Govind Gunderson MD - 05/06/2025 EXAM DESCRIPTION: CT CHEST WO CONTRAST REASON FOR STUDY: Abnormal xray - lung opacity/opacities, lung opacity Abnormal xray - lung opacity/opacities, lung opacity, Opacity of lung on imaging study Prior right lumpectomy. Breast cancer about 5 years ago.No symptoms to the chest. TECHNIQUE: CT scan of the chest performed without intravenous contrastusing helical scanning technique. Reconstructed coronal and sagittal MPR images reviewed. All images stored on PACS. Automated exposure control was usedas a dose optimization technique for this examination. COMPARISON: Thoracic spine MRI 02/27/2025 FINDINGS: The sensitivity for detection of solid visceral lesions is diminished without the use of intravenous contrast. LUNGS: A posteromedial right lower lobe 4.0 x 2.4 cm rounded subpleural opacity appears stable from the prior exam. Left upper lobe 9 mm nodule (series 2, image 42). 3 mm right apical nodule (18). Stable scarring inthe left lower lobe and lingula. PLEURA: No effusion. No pneumothorax. MEDIASTINUM/SANDRA: No identified masses or abnormal nodes. HEART: Heart size is normal with no pericardial effusion. CORONARY ARTERY CALCIFICATION: Mild. VASCULATURE: No thoracic aortic aneurysm. AXILLA: No adenopathy. CHEST WALL: No masses. No subcutaneous air. HARDWARE/LINES/TUBES: None. UPPER ABDOMEN: No significant abnormality. MUSCULOSKELETAL: No acute abnormality. Redemonstrated lucent lesions ofthe T7 and T8 vertebral bodies, characterized as hemangiomas on prior MRI.Severe degenerative disc disease at T7-T8 and T8-T9. OTHER: Enlargement of the left thyroid lobe, with several ill-defined nodules. Please see the follow-up thyroid ultrasound for furtherevaluation. IMPRESSION: 1. Pulmonary nodules measuring up to 9 mm in the left upper lobe.Repeat chest CT in 3 months is recommended. 2. Right lower lobe subpleural opacity, favoring rounded atelectasis. Attention on follow-up as above. Fleischner society guidelines for incidental lung nodule follow up do not apply for this patient's pulmonary nodules. Generally, Fleischner Society guidelines do not apply to patients that are under 35, immunosuppressed, patients enrolled in lung cancer screening, or patients with known primary cancer. Spencer Society Guidelines do not apply to Intra-fissural, perifissural, and subpleural pulmonary nodules. http://pubs.rsna.org/doi/pdf/10.1148/radiol.6987562366 THIS IS AN ELECTRONICALLY VERIFIED FINAL REPORT 05/06/2025 9:31 AM - Electronically signed by Govind Gunderson M.D. KR: KR Report ID: [id number] Reading Location: [id number] us Erick Shafer MD IMG CT PROCEDURES Final Resul t * Cardiology Document Scan (04/10/2025) Anatomical Region Laterality Modality Other us Ventura Grace MD CV CARDIAC SERVICES PROCEDUR ES Edited Result - Final * Urine culture Urine, bladder (04/05/2025 11:10 AM CDT) Report Final Report: Less than 100,000 colonies/mL (clinically insignificant growth based on current clinical standards) Comment:Testing performed by : [facility], [address] [facility], [place]., [address] Organism (CLINICALLY INSIGNIFICANT GROWTH LIZ CUI Urine, bladder 04/05/2025 11 :10 AM CDT 04/05/2025 3:56 PM CDT Narrative LIZ - 04/06/2025 5:14 PM CDT Testing performed by [facility] Microbiology Laboratory ([phone]) Kassandra Cutler LAB MICROBIOLOGY - GENER AL ORDERABLES Final Result Performing Organization Address City/[facility]/ZIP Co de Phone Number [facility] [address] [facility] Department [place] [address] * (ABNORMAL) POCT URINALYIS TEST (04/05/2025 10:35 AM CDT) Color, Urine, POC Brown Clarity, ur, POC Turbid(A) Clear Glucose, ur, POC Negative Negative Bilirubin, ur, POC Small(A) Negative Ketones, ur, POC Trace(A) Negative Specific [place], POC 1.025 1.003 - 1.030 Blood, ur, [...] * Scanned Labs (03/25/2025) 03/25/2025 Historical Provider MD LAB BLOOD ORDERABLES Arabella l Result EXTERNAL LAB * Thyroid peroxidase antibody (TPO) (03/21/2025 1:02 PM CDT) Thyroperoxidase ab 1 <9 IU/mL [facility] Blood 03/21/2025 1:02 PM CDT 03/21/2025 1:03 PM CDT Erick Shafer MD LAB BLOOD ORDERABLES Final Re sult [facility] [address] [place] [address] * TSH (03/21/2025 1:02 PM CDT) TSH 0.41 0.40 - 4.50 mIU/L [facility] Blood 03/21/2025 1:02 PM CDT 03/21/2025 1:03 PM CDT Erick Shafer MD LAB BLOOD ORDERABLES Final Re sult Performing Organization Address City/[facility]/ZIP Co de Phone Number [facility] [address] [place] [address] * MRI Thoracic Spine WO Contrast (02/27/2025 [...] Incompletely imaged. Partially visualized cervical spondylosis with sivq-it-asuzsasm spinal canal stenosis at C5-C6. UPPER LUMBAR: [...] Kishor Carr M.D. MM T: Report ID: [id number] Reading Location: [id number] Procedure Note Kishor Carr MD - 02/28/2025 [...] Incompletely imaged. Partially visualized cervical spondylosis with jvvm-sw-toputckt spinal canal stenosis at C5-C6. UPPER LUMBAR: [...] Kishor Carr M.D. MM T: Report ID: [id number] Reading Location: [id number] Erick Shafer MD IMG MRI PROCEDURES Final Resu lt from Last [address] [facility] MEDICARE AARP Care Teams Electric Meter Repairer Helper Relationship Specialty Start Date End Date Erick Shafer MD PCP - General Family Medicine 06/15/24
--- OUTSIDE RECORDS SUMMARY | 2025-05-06 10:15 | XMS_ITS | Encounter Summary ---
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
--- OUTSIDE RECORDS SUMMARY | 2025-05-06 10:15 | XMS_ITS | Clinical Summary ---
Author Organization [facility] Address [address] [place] [address] Care Team Providers Care Conference Planning Manager Name Role Phone Daisha Blackman MD Primary Care Provider [phone] Hernando Ackerman MD Unavailable Allergies Active Allergy [...] valent (CVX 197) 08/05/2021 Influenza, seasonal, injecta ble, PF (CVX 140) 05/30/2020,09/23/2017 Influenza, trivalent, adjuva nted (CVX 168) 07/20/2019,06/19/2019,06/14/2019 Novel [id number] (CVX 127) 08/30/2009 Pneumococcal Conjugate PCV 1 3 (CVX 133) 09/12/2016 Pneumococcal Polysaccharide PPV23 (CVX 33) 09/12/2015,08/15/2001 influenza, high dose seasona l (CVX 135) 08/05/2018,06/27/2016,07/24/2015,07/07,07/08/2013,07/22/2011 influenza, split virus, triv alent, with preservative (CVX 141) 07/30/2010,06/10/2009,08/15/2001 Family History Medical History Relation Name Comments [...] 12 mmol/L LAB_2500 09/07/2018 1:18 PM EST us Phi Briceno MD LAB BLOOD ORDERABLES Final R esult LAB_2500 from Last 3 Months or Most Recently Relevant to Health Maintenance Insurance MEDICARE A & B [facility] MEDICARE SUPPLEMENT Care Teams Conference Planning Manager Relationship Specialty Start Date End Date Daisha Blackman MD PCP - General 09/12/19 Hernando Ackerman MD [address] [place] [address] Consulting Physician Radiation Oncology 02/17/21
--- OUTSIDE RECORDS SUMMARY | 2025-05-06 10:15 | XMS_ITS | Encounter Summary ---
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
--- OUTSIDE RECORDS SUMMARY | 2025-05-06 12:22 | XMS_ITS | Clinical Summary ---
Author Organization [facility] Address [address] [place] [address] Care Team Providers Care Marine Animal Trainer Name Role Phone Daisha Blackman MD Primary Care Provider [phone] Hernando Ackerman MD Unavailable Allergies Active Allergy [...] trivalent, adjuva nted (CVX 168) 07/20/2019,06/19/2019,06/14/2019 Novel [id number] (CVX 127) 08/30/2009 Pneumococcal Conjugate PCV 1 [...] Health Maintenance Insurance MEDICARE A & B [facility] MEDICARE SUPPLEMENT Care Teams Marine Animal Trainer Relationship Specialty Start Date End Date Daisha Blackman MD PCP - General 09/12/19 Hernando Ackerman MD [address] [place] [address] Consulting Physician Radiation Oncology 02/17/21
--- OUTSIDE RECORDS SUMMARY | 2025-05-06 12:22 | XMS_ITS | Clinical Summary ---
Author Organization [facility] Virtual Care Address [address] [place] [phone] Phone Care Team Providers Care Core Loader Name Role Phone Erick Shafer MD Primary Care Provider [phone] Allergies Active Allergy Reactions Criticality Noted Date [...] - 05/02/2025 11:59 PM CDT Hospital Encounter [address] [address] Goiter Discharge Disposition: Discharge to home or self care 04/16/2025 Orders Only [facility] Information [facility] [address] [place] [address] Erick Shafer MD 04/15/2025 Results Follow-Up [facility] Family Medicine at [address] [place] [address] Kassandra Salazar PA Dexa Axial Skeleton Bone Density 1 Or 2 Site 04/12/2025 8:50 AM CDT - 04/12/2025 11:59 PM CDT Hospital Encounter [facility] Medical Office Bldg 1 [facility] [address] [facility] [address] [place] [address] Postmenopausal status Discharge Disposition: Discharge to home or self care 04/11/2025 10:00 AM CDT - 04/11/2025 11:59 PM CDT Hospital Encounter [facility] Medical Office Building [address] [place] [address] Opacity of lung on imaging study Discharge Disposition: Discharge to home or self care 04/10/2025 Orders Only [facility] Information Management [address] [place] [address] Ventura Grace MD 04/09/2025 Telephone [facility] Family Medicine at [address] [address] Kassandra Salazar PA Total hip replacement 04/07/2025 Results Follow-Up [facility] Family Medicine at [address] [address] Kassandra Salazar PA Urine culture Urine, bladder 04/05/2025 11:14 AM CDT - 04/05/2025 11:59 PM CDT Hospital Encounter [facility] Medical Office Bldg [address] [place] [address] Hematuria, unspecified type Discharge Disposition: Discharge to home or self care 04/05/2025 10:15 AM CDT Office Visit [facility] Family Medicine at [address] [address] Kassandra Salazar PA Hematuria, unspecified type (Primary Dx) 04/04/[address] [facility] at [address] [phone] Erick Shafer MD Symptom Based Call 03/25/[address] [facility] at [address] [phone] Erick Shafer MD Forms Request 03/03/2025 Results Follow-Up [facility] at [address] [phone] Erick Shafer MD MRI Thoracic Spine WO Contrast, TSH, Thyroid peroxidase antibody (TPO) 02/27/2025 3:24 PM CDT - 02/27/2025 11:59 PM CDT Hospital Encounter [facility] MRI [address] [place] [address] Lesion of bone of thoracic spine Discharge Disposition: Discharge to home or self care 02/06/[address] 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 Market Basket Maker/Model: Hologic Horizon A (S/N [id number]) Facility LSC value of 0.022 for the [...] 11:09 AM - Electronically signed by Dori Tnog M.D. TW: TW Report ID: [id number] Reading Location: [place] [address] Procedure Note Dori Tong MD - 04/12/2025 EXAM DESCRIPTION: DEXA AXIAL SKELETON BONE DENSITY 1 OR MORE SITES REASON FOR STUDY: 79 y/o year old F with given history of:Postmenopausal status. Patient has taken/is taking Fosamax, hormone replacement therapyand vitamin-D. Market Basket Maker/Model: Hologic uFaber A (S/N [id number]) Facility LSC value of 0.022 for the [...] Dori Tong M.D. TW: BRUCE Report ID: [id number] Reading Location: [place] [address] us Erick Shafer MD IMG DXA PROCEDURES [...] to Intra-fissural, perifissural, and subpleural pulmonary nodules. http://pubs.rsna.org/doi/pdf/10.1148/radiol.[email or web address] THIS IS AN ELECTRONICALLY VERIFIED FINAL REPORT 05/06/2025 9:31 AM - Electronically signed by Govind Gunderson M.D. KR: CHANA Report ID: [id number] Reading Location: [place] [address] Procedure Note Govind Gunderson MD - 05/06/2025 [...] to Intra-fissural, perifissural, and subpleural pulmonary nodules. http://pubs.rsna.org/doi/pdf/10.1148/radiol.[email or web address] THIS IS AN ELECTRONICALLY VERIFIED FINAL REPORT 05/06/2025 9:31 AM - Electronically signed by Govind Gunderson M.D. KR: KR Report ID: [id number] Reading Location: [id number] us Erick Shafer MD IMG CT PROCEDURES Final Resul t * Cardiology Document Scan (04/10/2025) Anatomical Region Laterality Modality Other us Ventura Grace MD CV CARDIAC SERVICES PROCEDUR ES Edited Result - Final * Urine culture Urine, bladder (04/05/2025 11:10 AM CDT) Report Final Report: Less than 100,000 colonies/mL (clinically insignificant growth based on current clinical standards) Comment:Testing performed by : [facility], [address] [facility], [place]., [address] Organism (CLINICALLY INSIGNIFICANT GROWTH LIZ CUI Urine, bladder 04/05/2025 11 :10 AM CDT 04/05/2025 3:56 PM CDT Narrative LIZ - 04/06/2025 5:14 PM CDT Testing performed by [facility] Microbiology Laboratory ([phone]) aKssandra Cutler LAB MICROBIOLOGY - GENER AL ORDERABLES Final Result Performing Organization Address City/[facility]/ZIP Co de Phone Number [facility] [address] [facility] [place] [address] * (ABNORMAL) POCT URINALYIS TEST (04/05/2025 10:35 AM CDT) Color, Urine, POC Brown Clarity, ur, POC Turbid(A) Clear Glucose, ur, POC Negative Negative Bilirubin, ur, POC Small(A) Negative Ketones, ur, POC Trace(A) Negative Specific [place], POC 1.025 1.003 - 1.030 Blood, ur, [...] LAB BLOOD ORDERABLES Final Re sult [facility] [address] [place] [address] * TSH (03/21/2025 1:02 PM CDT) TSH 0.41 0.40 - 4.50 mIU/L [facility] Blood 03/21/2025 1:02 PM CDT 03/21/2025 1:03 PM CDT Erick Shafer MD LAB BLOOD ORDERABLES Final Re sult Performing Organization Address City/[facility]/ZIP Co de Phone Number [facility] [address] [place] [address] * MRI Thoracic Spine WO Contrast (02/27/2025 [...] Incompletely imaged. Partially visualized cervical spondylosis with xkhk-uo-yojergbd spinal canal stenosis at C5-C6. UPPER LUMBAR: [...] Kishor Carr M.D. MM T: Report ID: [id number] Reading Location: [id number] Procedure Note Kishor Carr MD - 02/28/2025 [...] Incompletely imaged. Partially visualized cervical spondylosis with kmgo-pv-lescorin spinal canal stenosis at C5-C6. UPPER LUMBAR: [...] Kishor Carr M.D. MM T: Report ID: [id number] Reading Location: [id number] Erick Shafer MD IMG MRI PROCEDURES Final Resu lt from Last 3 Months Insurance [facility] MEDICARE AARP Care Teams Core Loader Relationship Specialty Start Date End Date Erick Shafer MD PCP - General Family Medicine 06/15/24
--- OUTSIDE RECORDS SUMMARY | 2025-05-06 12:22 | XMS_ITS | Patient Health Record ---
Author Organization [facility] [address] [place], [place] [id number] Care Team Providers Care Convention Services Manager Name Role Phone ABILIO OCONNOR Primary Care Provider Reason For Referral No Information Medications Medication [...] of [place] [employer] [facility] [address] [address] [place] [address] [id number] JEFFREY BLUE Self - patient is the insured 1 [facility] Supplementa l [address] [id number] JEFFREY BLUE Self - patient is the insured 9 Medical (General) History Medical History History ICD Code hypertension osteoporosis breast cancer Surgical History Surgery Date(Month/Year) bilateral knees hysterectomy
--- OUTSIDE RECORDS SUMMARY | 2025-05-06 12:22 | XMS_ITS | Encounter Summary ---
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
--- OUTSIDE RECORDS SUMMARY | 2025-05-06 12:22 | XMS_ITS | Encounter Summary ---
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
--- OUTSIDE RECORDS SUMMARY | 2025-05-06 12:22 | XMS_ITS | Encounter Summary ---
Author Organization [facility] Healthcare Address [address] [place] [address] Care Team Providers Care Direct Service Worker Name Role Phone Erick Shafer MD Primary Care Provider [phone] Reason for Visit * Reason Onset Date Comments Symptom Based Call 04/04/2025 Encounter Details Date Type Department Care Team (Late st Contact Info) Description 04/04/2025 Telephone [facility] Medical Group Family Medicine at [address] [address] Erick Shafer MD [address] [place] [address] Symptom Based Call Social History Tobacco [...] on file 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
[2025-05-06 13:45] LABS: Hematocrit 38.9 % (37.0-47.0); Hemoglobin 12.4 g/dL (12.0-15.0); Immature Granulocyte Percent A 0.3 % (0-0.5); Lymphocytes Absolute Auto 0.91 K/mm3 (0.9-3.2); Mean Corpuscular HGB Conc 31.9 g/dl (32-36); Mean Corpuscular Hemoglobin 30.1 pg (26-34); Mean Corpuscular Volume 94.4 fl (80-100); Nucleated Red Blood Cells Absolute Auto 0.000 K/mm3 (0.0-0.012); Nucleated Red Blood Cells Perc 0.0 % (0.0-0.2); Platelet Count Result 188 k/mm3 (150-375); Red Blood Count 4.12 M/mm3 (4.2-5.4); White Blood Count 6.2 K/mm3 (4.5-10.0)
[2025-05-06] MEDS: levETIRAcetam Tablet 250 MG, levETIRAcetam Tablet 500 MG 750 MG PO (13:45)
--- NOTE | 2025-05-06 14:30 | ECG_ITS ---
Test Date: 2025-05-06 14:53:32 Measurements Intervals [place] Rate: 51 P: 48 ID: 180 QRS: -10 QRSD: 90 T: 35 QT: 451 QTc: 418 Interpretive Statements SINUS BRADYCARDIA INCOMPLETE RIGHT BUNDLE BRANCH BLOCK LOW QRS VOLTAGE IN PRECORDIAL LEADS LEFT VENTRICULAR HYPERTROPHY PATTERN CONSISTENT WITH PULMONARY DISEASE CONSIDER ANTERIOR INFARCT, AGE INDETERMINATE INFERIOR INFARCT, AGE INDETERMINATE BASELINE ARTIFACT- I, II, AVR Compared to ECG 01/29/2025 09:41:04 NO SIGNIFICANT CHANGE Electronically Signed On 05-06-2025 15:00:30 CDT by Herminio Pemberton D.O.
[2025-05-06 15:00] LABS: Alanine Aminotransferase 17 U/L (6-35); Albumin Level 4.2 g/dL (3.5-5.1); Alkaline Phosphatase 67 U/L (38-126); Anion Gap 8 mmol/L (4-12); Aspartate Amino Transferase 26 U/L (14-36); Bilirubin,Total 0.4 mg/dL (0.2-1.3); Blood Urea Nitrogen 21 mg/dL (7-17); Calcium 9.8 mg/dL (8.4-10.2); Carbon Dioxide 25 mmol/L (22-30); Chloride 104 mmol/L (98-107); Estimated Glomerular Filt Rate 45; Glucose 108 mg/dL (65-110); Potassium 4.6 mmol/L (3.4-5.0); Sodium 137 mmol/L (137-145); Total Protein 7.2 g/dL (6.3-8.2)
--- NOTE | 2025-05-06 15:05 | ED.SEIZURE ---
HPI - Seizure General Chief Complaint: Seizure Stated Complaint: poss seizure Time Seen by Provider: 05/06/25 11:30 History of Present Illness HPI Narrative: Patient presenting here with witnessed seizure, she was waiting for her orthopedic appointment when her noticed that her head suddenly went down, and she started foaming at the mouth the making unintelligible sounds. The last time she had a seizure was 50 years ago and was pain induced. Patient states last thing she remembered was being very tired, and now she just feels very sleepy and tired, this is similar to when she used to have seizures. Related Data Home Medications ?Medication ?Instructions ?Recorded ?Confirmed ?Last Taken ?Type furosemide 40 mg tablet (Lasix) 40 mg PO QAM 03/30/21 03/25/25 03/31/21 History lisinopril 40 mg tablet 40 mg PO DAILY 03/07/23 04/16/25 04/15/25 History trazodone 50 mg tablet 25 mg PO QHS PRN sleep 03/07/23 03/25/25 Unknown History potassium chloride 20 mEq 20 meq PO HS 03/25/25 03/25/25 Unknown History tablet,extended release Allergies Allergy/AdvReac Type Severity Reaction Status Date / Time adhesive tape Allergy Intermediate Rash Verified 05/06/25 10:08 Review of Systems Review of Systems: All systems reviewed & are unremarkable except as noted in HPI and below PMFSH Past Medical History Medical History Breast cancer Essential (primary) hypertension Mixed hyperlipidemia History of breast cancer Hypertension Surgical History Surgical History Status post total hip replacement, left Hx laparoscopic cholecystectomy Hx of appendectomy History of partial hysterectomy History of total right knee replacement (~03/20/19) History of total left knee replacement (~05/16/12) H/O lumbar discectomy (~1993) History of lumpectomy of right breast (~09/08/18) Family History Family History Other Diabetes mellitus Family history of cardiovascular disease Family history of thyroid disease Hypertension Social History Social History Smoking packs per day: 0.5 Smoking cigarettes per day: 10.0 Years smoked: 25 Smoking pack-years: 12.50 Smoking status: Former smoker Tobacco type: cigarettes Second hand tobacco smoke exposure: Yes Smoking end date: 09/12/90 Additional smoking assessment comments: DENIES ANY FORM OF TOBACCO USE Alcohol intake: never Alcohol use details: very rarely Substance use: never Lack of Transportation: No Lack of Food: Never True Current Housing: I Have Housing Concerned About Future Housing: Decline to Answer Difficulty Paying Gas/Electric Bills: Decline to Answer Difficulty Paying for Meds: Decline to Answer Currently Unemployed: Decline to Answer Education: High School Diploma/GED Difficulty w/ Childcare or Family Care: Decline to Answer Living arrangements: with family Occupation/Education: retired Gender identity (if verbalized by the patient): Female Sexual Orientation (if Verbalized by the Patient): Straight or Heterosexual Spiritual care concerns: No Agree to blood products: Yes Exam Narrative: EXAMINATION OF ORGAN SYSTEMS/BODY AREAS: Constitutional: Vital signs per nursing GENERAL:[No acute distress, non-toxic appearing.] HEAD: Normal with no signs of head trauma. EYES: EOMI, conjunctiva normal ENT: Hearing grossly intact LUNGS: Nonlabored breathing. HEART: [Regular rate and rhythm] ABD: [Soft], [nontender to palpation] EXT: Normal range of motion SKIN: [No rashes or lesions.] NEURO: [Alert and oriented x 3. No gross focal sensory or strength deficits.] No facial droop. Clear speech. PSYCH: Normal affect Course Vital Signs Vital signs: Vital Signs Temperature 97.5 F L 05/06/25 10:04 Pulse Rate 53 L 05/06/25 10:04 Respiratory Rate 16 05/06/25 10:04 Blood Pressure 109/66 05/06/25 10:04 Pulse Oximetry 99 05/06/25 10:04 Oxygen Delivery Room Air 05/06/25 10:04 Temperature 97.5 F L 05/06/25 10:04 Pulse Rate 53 L 05/06/25 10:04 Respiratory Rate 16 05/06/25 10:04 Blood Pressure 109/66 05/06/25 10:04 Pulse Oximetry 99 05/06/25 10:04 Oxygen Delivery Room Air 05/06/25 10:04 MDM - Seizure MDM Narrative Medical decision making narrative: Patient presents here with new onset seizure, witnessed, I did consider possible syncope, her EKG here my independent interpretation shows sinus Parviz rate 51, NE 180, QRS 90, QTC 418, no significant ST elevations or depressions or signs of acute ischemia or arrhythmia, similar to prior EKG CT brain without any obvious large abnormality. Labs within acceptable limits. I did discuss this with neurologist, feels given her age, which is start Keppra and have follow-up outpatient. Patient agreeable to this plan. agreeable to plan. Lab Data 05/06/25 13:38 05/06/25 14:36 Labs: Lab Results 05/06/25 05/06/25 Range/Units 13:38 14:36 WBC 6.2 (4.5-10.0) K/mm3 RBC 4.12 L (4.2-5.4) M/mm3 Hgb 12.4 (12.0-15.0) g/dL Hct 38.9 (37.0-47.0) % MCV 94.4 (80-100) fl MCH 30.1 (26-34) pg MCHC 31.9 L (32-36) g/dl RDW 13.3 (11.5-14.5) % Plt Count 188 (150-375) k/mm3 MPV 10.1 (7.4-10.4) fl Immature Gran % (Auto) 0.3 (0-0.5) % Neut % (Auto) 73.5 H (45.5-73.1) % Lymph % (Auto) 14.6 L (18.3-44.2) % Wise % (Auto) 6.3 (2.6-8.5) % Eos % (Auto) 4.5 H (0-4.4) % Baso % (Auto) 0.8 (0.2-1.2) % Lymph # (Auto) 0.91 (0.9-3.2) K/mm3 Wise # (Auto) 0.4 (0.1-0.6) K/mm3 Eos # (Auto) 0.3 (0-0.3) K/mm3 Baso # (Auto) 0.1 (0.0-0.1) K/mm3 Abs Immat Gran (auto) 0.02 (0.00-0.031) K/mm3 Absolute Neuts (auto) 4.6 (1.3-6.7) K/mm3 Absolute Nucleated RBC 0.000 (0.0-0.012) K/mm3 Nucleated RBC % 0.0 (0.0-0.2) % Sodium 137 (137-145) mmol/L Potassium 4.6 (3.4-5.0) mmol/L Chloride 104 (98-107) mmol/L Carbon Dioxide 25 (22-30) mmol/L Anion Gap 8 (4-12) mmol/L BUN 21 H (7-17) mg/dL Creatinine 1.17 H (0.7-1.0) mg/dL Estim Creat Clear Calc Not Reportable Estimated GFR 45 L (59 - ) Glucose 108 (65-110) mg/dL Lactic Acid 1.3 (0.7-2.0) mmol/L Calcium 9.8 (8.4-10.2) mg/dL Total Bilirubin 0.4 (0.2-1.3) mg/dL AST 26 (14-36) U/L ALT 17 (6-35) U/L Alkaline Phosphatase 67 (38-126) U/L Total Protein 7.2 (6.3-8.2) g/dL Albumin 4.2 (3.5-5.1) g/dL Discharge Plan Discharge Clinical Impression: Witnessed seizure-like activity Patient Disposition: Home Condition: Stable Instructions: Epilepsy (ED) Additional Instructions: Please follow up with the neurologist; start taking the Keppra as prescribed and come back to the ER for any further issues. Patient Language: Czech Prescriptions: New levetiracetam [Keppra] 750 mg tablet 750 mg PO BID Qty: 60 0RF No Action lisinopril 40 mg tablet 40 mg PO DAILY trazodone 50 mg tablet 25 mg PO QHS PRN (Reason: sleep) potassium chloride 20 mEq tablet extended release 20 meq PO HS aspirin [Enteric Coated Aspirin] 81 mg tablet,delayed release (DR/EC) 81 mg PO BID Qty: 28 0RF meloxicam 15 mg tablet 15 mg PO DAILY Qty: 30 0RF furosemide [Lasix] 40 mg tablet 40 mg PO QAM amlodipine 10 mg tablet 10 mg PO DAILY Qty: 90 3RF metoprolol tartrate 50 mg tablet 50 mg PO BID Qty: 180 1RF Follow-up/Referrals: Soni,Erick Patel MD [Primary Care Provider, Unknown]
== END 2025-05-06 16:26 | disposition home or self-care (01) ==
PROVIDERS: Emergency Provider Emergency Medicine; PCP Family Medicine
DX: R56.9 Unspecified convulsions (principal); I10 Essential (primary) hypertension; E78.2 Mixed hyperlipidemia; Z96.642 Presence of left artificial hip joint; Z96.653 Presence of artificial knee joint, bilateral; Z85.3 Personal history of malignant neoplasm of breast; Z87.891 Personal history of nicotine dependence; Z90.711 Acquired absence of uterus with remaining cervical stump; Z79.82 Long term (current) use of aspirin; Z79.899 Other long term (current) drug therapy; I45.10 Unspecified right bundle-branch block; R00.1 Bradycardia, unspecified; I51.7 Cardiomegaly; R94.31 Abnormal electrocardiogram [ECG] [EKG]
CPT/HCPCS: 36415; 70450; 80053; 83605; 85025; 93005; 99284; A9270

== ENCOUNTER 2025-06-13 12:37 | Outpatient (CLI) | payer MEDICARE, SELFPAY ==
--- NOTE | ~2025-06-13 | CT_ITS ---
EXAMINATION: CT abdomen pelvis wo/w con DATE: 06/13/2025 13:18 INDICATION: Gross hematuria. TECHNIQUE: Computed tomography (CT) of the abdomen and pelvis was performed without and with intravenous contrast using a total of 130 mL Omnipaque-350 intravenous contrast with a double-bolus technique for simultaneous opacification of the renal parenchyma and renal collecting system. Automated exposure control and iterative reconstruction technique were employed. The dose- length product was 1721.00 mGy-cm. COMPARISON: CT abdomen and pelvis 01/06/2015 FINDINGS: The lungs demonstrate mild atelectasis. There are airspace opacities with air bronchograms in right lower lobe. There is a 7 mm nodule in lingula. No pleural effusion. Cardiomegaly is noted. There are coronary artery calcifications. No pericardial effusion. The liver is normal. There are changes of cholecystectomy. The spleen, pancreas, and adrenal glands are normal. There are cysts in the kidneys measuring up to 2.3 cm on the left. There is no urolithiasis. There is a decreased left-sided contrast nephrogram. The right ureter is well opacified and is normal. There is moderate left hydronephrosis. The left ureter is not opacified. There is urothelial thickening in proximal left ureter. The bladder is distended. There is diverticulosis of the colon without evidence of diverticulitis. There are no dilated loops of bowel. The appendix is not visualized. There are no pathologically enlarged lymph nodes. There is no free intraperitoneal fluid. There is a total left hip arthroplasty. There is severe l umbar spondylosis. There is a hemangioma in L4 vertebral body. There is severe thoracic spondylosis. There are hemangiomas in T7 and T8 vertebral bodies. IMPRESSION: 1. Moderate left hydronephrosis. Urothelial thickening in proximal left ureter is suspicious for urothelial carcinoma. 2. 7 mm pulmonary nodule, probably benign. Noncontrast chest CT is recommended in 6 months. 3. Airspace opacities in right lower lobe suspicious for pneumonia. Reviewed, dictated and finalized at location E.
--- OUTSIDE RECORDS SUMMARY | 2025-06-13 12:41 | XMS_ITS | Patient Health Record ---
Author Organization [facility] [address] [place], [place] [id number] Care Team Providers Care Manager Financial Systems Name Role Phone ABILIO OCONNOR Primary Care [...] of [place] [employer] [address] [address] [place] [address] [id number] JEFFREY BLUE Self - patient is the insured 1 [facility] [employer]lement[employer] l [address] [place], [place] [id number] JEFFREY BLUE Self - patient is the insured 9 Medical (General) History Medical History History ICD Code hypertension osteoporosis breast cancer Surgical History Surgery Date(Month/Year) bilateral knees hysterectomy
--- OUTSIDE RECORDS SUMMARY | 2025-06-13 12:41 | XMS_ITS | Encounter Summary ---
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
--- OUTSIDE RECORDS SUMMARY | 2025-06-13 12:41 | XMS_ITS | Clinical Summary ---
Author Organization [facility] Address [address] [place], [place] Phone Care Team Providers Care Remediation Project Engineer Name Role Phone Daisha Blackman MD Primary Care Provider [phone] Hernando Ackerman MD Unavailable Allergies Active Allergy [...] trivalent, adjuva nted (CVX 168) 07/20/2019,06/19/2019,06/14/2019 Novel [id number] (CVX 127) 08/30/2009 Pneumococcal Conjugate PCV 1 [...] Health Maintenance Insurance MEDICARE A & B [facility] MEDICARE SUPPLEMENT Care Teams Remediation Project Engineer Relationship Specialty Start Date End Date Daisha Blackman MD PCP - General 09/12/19 Hernando Ackerman MD [address] [place] [address] Consulting Physician Radiation Oncology 02/17/21
--- OUTSIDE RECORDS SUMMARY | 2025-06-13 12:41 | XMS_ITS | Clinical Summary ---
Author Organization [facility] Address [address] [place] [phone] Phone Care Team Providers Care Social Worker Masters Name Role Phone Erick Shafer MD Primary Care Provider [phone] Allergies Active Allergy Reactions Criticality Noted Date Comments Adhesive Rash High 05/15/2024 Pulls skin off causes skin tears too Iodinated Contrast Media Itching Low 01/21/2021 Medications traZODone (DESYREL) 50 mg tablet [...] Encounters Date Type Department Care Team Description 05/30/2025 9:30 AM CDT Office Visit [facility] Family Medicine at [address] [place] [address] Erick Shafer MD Essential hypertension (Primary Dx); Edema of both lower extremities; Seizure disorder (HCC) 05/02/2025 10:40 AM CDT - 05/02/2025 11:59 PM CDT Hospital Encounter [facility] [address] [place] [address] Goiter Discharge Disposition: Discharge to home or self care 04/16/2025 Orders Only [facility] Health Information Management [address] [place] [address] Erick Shafer MD 04/15/2025 Results Follow-Up [facility] Family Medicine at [address] [address] Kassandra Salazar PA Dexa Axial Skeleton Bone Density 1 Or 2 Site 04/12/2025 8:50 AM CDT - 04/12/2025 11:59 PM CDT Hospital Encounter [facility] Medical Office Bldg [address] [address] Postmenopausal status Discharge Disposition: Discharge to home or self care 04/11/2025 10:00 AM CDT - 04/11/2025 11:59 PM CDT Hospital Encounter [facility] Medical Office Building [address] [address] Opacity of lung on imaging study Discharge Disposition: Discharge to home or self care 04/10/2025 Orders Only [facility] Health Information Management [address] [place] [address] Ventura Grace MD 04/09/2025 Telephone [facility] Family Medicine at [address] [place] [address] Kassandra Salazar PA Total hip replacement 04/07/2025 Results Follow-Up [facility] Medical [facility] Family Medicine at [address] [address] Kassandra Salazar PA Urine culture Urine, bladder 04/05/2025 11:14 AM CDT - 04/05/2025 11:59 PM CDT Hospital Encounter [facility] Medical Office Bldg 3 OP Lab [facility] [address] [place] [address] Hematuria, unspecified type Discharge Disposition: Discharge to home or self care 04/05/2025 10:15 AM CDT Office Visit [facility] at [address] [place] [address] Kassandra Salazar PA Hematuria, unspecified type (Primary Dx) 04/04/2025 Telephone [facility] at [address] [place] [address] Erick Shafer MD Symptom Based Call 03/25/2025 Telephone [facility] at [address] [place] [address] Erick Shafer MD Forms Request from Last 3 Months Immunizations Immunization Administration Dates Next Due H1N1 Inj 08/30/2009 Hep A, Adult 02/01/2000,07/29/1999 Influenza Virus Vaccine Trivalent Mdv ,06/19/2019,06/14/2019,02/17 Influenza, Quad, Adjuvantate d, Intramuscular 07/24/2022 Influenza, Quadrivalent, Hig h Dose, Preservative Free, Intrr 08/05/2021 Influenza, Trivalent, High D ose, Split, Preservative Free, Intramuscular 08/05/2018,06/27/2016,07/24/2015,07/07,07/08/2013,07/22/2011 Influenza, Trivalent, IM (MDV) ,07/13/2013,06/27/2012,07/30,06/10/2009,07/09/2008,06/12/2007 ,06/22/2006,07/15/2005,08/15/2001 Influenza, Trivalent, Preser vative Free, Intramuscular 05/30/2020,09/23/2017 Influenza, Unspecified 06/12/2024(Deferr ed: Patient Refused),06/12/2023(Deferred: Patient Refused) Moderna SARS-CoV-2 Monovalen t Vaccination (12+ YRS) 08/05/2021,10/20/2020,09/24/2020 Moderna Sars-cov-2 Monovalen t Booster Vaccination (12+ YRS) 08/05/2021,10/20/2020,09/24/2020 Pneumococcal Conjugate PCV 13 09/12/2016, 015 Pneumococcal Polysaccharide PPV23 09/12/2015,10/2013,08/15/2001 Td, Not Adsorbed 03/02/2017,09/12/1989 Tdap 03/01/2007 ZOSTER LIVE 03/03/2009 Surgical History Surgery Date Site/Laterality Comments CHOLECYSTECTOMY BREAST LUMPECTOMY JOINT REPLACEMENT 04/16/2025 Left hip HYSTERECTOMY SPINE SURGERY Family History Medical History [...] on file 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 Gender Identity Not on file Sexual Orientation Not on file Obstetrics History Last Filed Vital Signs Vital Sign Reading Time Taken Comments Blood Pressure 140/66 05/30/2025 9:15 AM CDT Pulse 61 05/30/2025 9:15 AM CDT Temperature 36.8 C (98.2 F) 05/30/2025 9:15 AM CDT Respiratory Rate - - Oxygen Saturation 95% 05/30/2025 9:15 AM CDT Inhaled Oxygen Concentration - - Weight 88.4 kg (194 lb 12.8 oz) 05/30/2025 9:15 AM CDT Height 154.9 cm (5' 1) 05/30/2025 9:15 AM CDT Body Mass Index 36.81 05/30/2025 9:15 AM CDT Plan of Treatment Health Maintenance Due Date Last Done Comments Hepatitis C Screening 1945 Hepatitis B Screening 1963 Zoster Vaccine (2 of 3) 04/28/2009 03/03/2009 Covid-19 Vaccine (7 - 2024-2 6 season) 2025 08/05/2021, 08/05/2021, 10/20/2020, Additional history exists Influenza Vaccine (#1) 2025 , 08/05/2021, 05/30/2020, Additional history exists Fall Risk Assessment 01/03/2026 01/03/2025, 05/15/20 Well Visit 65+ 01/03/2026 01/03/2025 Depression Screening 04/05/2026 04/05/2025, 01/03/2025, 05/15/2024 DTaP/Tdap/Td Vaccine (3 - Td or Tdap) 03/02/2027 03/02/2017, 03/01/2007, 09/12/1989 Osteoporosis Screening-Bone Density Scan 04/12/2027 04/12/2025 Pneumococcal vaccine 65+ Completed 017, 09/12/2015, 02/17/2015, Additional history exists Procedures Procedure Name Priority Date/Time Associated Diagnosis Comments US THYROID Schedule Routine, Read Routine (OP Routine) 05/02/2025 12:02 PM CDT Goiter SCAN - RADIOLOGY/IMAGING 04/16/2025 DEXA AXIAL SKELETON [...] TSH Routine 03/21/2025 1:02 PM CDT Goiter from Last 3 Months Results * US Thyroid (05/02/2025 12:02 PM CDT) Anatomical Region Laterality Modality Head and Neck N/A Ultrasound 05/17/2025 8:54 AM CDT Narrative 05/17/2025 9:05 AM CDT EXAM DESCRIPTION: US THYROID REASON FOR STUDY: Nodules detected on MR imaging TECHNIQUE: Ultrasound of the thyroid was performed with grayscale and color doppler. COMPARISON: 02/27/2025 FINDINGS: RIGHT: The right thyroid lobe measures 5.5 x 3.3 x 2.6 cm. Mid to inferior pole nodule measures 2.9 x 2.7 x 2.7 cm. This lesion is as wide as tall, smoothly marginated, solid-2 points, isoechoic-1 and with suspected echogenic foci-3 points. TI-RADS 4. Biopsy suggested at this size. LEFT: The left thyroid lobe measures 6.4 x 3.7 x 4.2 cm. Superior pole lesion measures 2.1 x 1.7 x 1.6 cm. This lesion is wider than tall, smoothly marginated, solid-2 points, isoechoic-1 point and without calcification. TI-RADS 3. Continued follow-up suggested per guidelines. Mid to inferior pole nodule measures 4.5 x 4.1 x 3.6 cm. This lesion is taller than wide-3 points, solid-2 points, smoothly marginated, isoechoic-1 point and without calcification. TI-RADS 4. Biopsy suggested at this size. ISTHMUS: The isthmus measures 1.0 cm in AP dimension. The isthmus is normal in echotexture. VASCULARITY: Normal. OTHER: No other significant finding. IMPRESSION: 1. Bilateral thyroid nodules as above. Biopsy suggested per guidelines below. 2. ACR TI-RADS Risk Category: 3 and 4. REFERENCE: According to the ACR Thyroid Imaging, Reporting and Data System (TI-RADS): White Paper of the ACR TI-RADS Committee Jan, 2017 recommendations regarding the management of thyroid nodules are as follows: 1. TI-RADS 1: Risk of malignancy <2%, no FNA or follow up required. 2. TI-RADS 2: Risk of malignancy <2%, no FNA or follow up required. 3. TI-RADS 3: Risk of malignancy 2%-5%. Nodules 1.5 cm or greater follow up at 1, 3 and 5 years recommended, for nodules 2.5 cm or greater FNA recommended. 4. TI-RADS 4: Risk of malignancy 5%-20% Nodules 1.0 cm or greater follow up at 1, 2, 3 and 5 years recommended, for nodules 1.5 cm or greater FNA recommended 5. TI-RADS 5: Risk of malignancy >20%. Nodules 0.5 cm or greater annual follow up for 5 years recommended, for nodules 1.0 cm or greater FNA recommended. The ACT TI-RADS committee recommends targeting no more than two nodules for FNA. If three or more nodules meet criteria for FNA, the two with the most suspicious appearance based on ACR TI-RADS points should be sampled. THIS IS AN ELECTRONICALLY VERIFIED FINAL REPORT 05/17/2025 9:05 AM - Electronically signed by Clovis Matson M.D. RB T: Report ID: [id number] Reading Location: [id number] Procedure Note Clovis Matson MD - 05/17/2025 EXAM DESCRIPTION: US THYROID REASON FOR STUDY: Nodules detected on MR imaging TECHNIQUE: Ultrasound of the thyroid was performed with grayscale andcolor doppler. COMPARISON: 02/27/2025 FINDINGS: RIGHT: The right thyroid lobe measures 5.5 x 3.3 x 2.6 cm. Mid to inferior pole nodule measures 2.9 x 2.7 x 2.7 cm. This lesion isas wide as tall, smoothly marginated, solid-2 points, isoechoic-1 and with suspected echogenic foci-3 points. TI-RADS 4. Biopsy suggested at thissize. LEFT: The left thyroid lobe measures 6.4 x 3.7 x 4.2 cm. Superior pole lesion measures 2.1 x 1.7 x 1.6 cm. This lesion is widerthan tall, smoothly marginated, solid-2 points, isoechoic-1 point and without calcification. TI-RADS 3. Continued follow-up suggested perguidelines. Mid to inferior pole nodule measures 4.5 x 4.1 x 3.6 cm. This lesion is taller than wide-3 points, solid-2 points, smoothly marginated,isoechoic-1 point and without calcification. TI-RADS 4. Biopsy suggested at thissize. ISTHMUS: The isthmus measures 1.0 cm in AP dimension. The isthmus isnormal in echotexture. VASCULARITY: Normal. OTHER: No other significant finding. IMPRESSION: 1. Bilateral thyroid nodules as above. Biopsy suggested per guidelinesbelow. 2. ACR TI-RADS Risk Category: 3 and 4. REFERENCE: According to the ACR Thyroid Imaging, Reporting and Data System (TI-RADS): White Paper of the ACR TI-RADS Committee Jan, 2017recommendations regarding the management of thyroid nodules are as follows: 1. TI-RADS 1: Risk of malignancy <2%, no FNA or follow up required. 2. TI-RADS 2: Risk of malignancy <2%, no FNA or follow up required. 3. TI-RADS 3: Risk of malignancy 2%-5%. Nodules 1.5 cm or greater followup at 1, 3 and 5 years recommended, for nodules 2.5 cm or greater FNArecommended. 4. TI-RADS 4: Risk of malignancy 5%-20% Nodules 1.0 cm or greater followup at 1, 2, 3 and 5 years recommended, for nodules 1.5 cm or greater FNA recommended 5. TI-RADS 5: Risk of malignancy >20%. Nodules 0.5 cm or greater annual follow up for 5 years recommended, for nodules 1.0 cm or greater FNA recommended. The ACT TI-RADS committee recommends targeting no more than two nodulesfor FNA. If three or more nodules meet criteria for FNA, the two with themost suspicious appearance based on ACR TI-RADS points should be sampled. THIS IS AN ELECTRONICALLY VERIFIED FINAL REPORT 05/17/2025 9:05 AM - Electronically signed by Clovis DURAN T: Report ID: [id number] Reading Location: [place] [address] us Erick Shafer MD IMG US PROCEDURES Final Resul t * SCAN - RADIOLOGY/IMAGING (04/16/2025) Anatomical Region Laterality Modality Other Erick Shafre MD Final Result * Dexa Axial Skeleton [...] taking Fosamax, hormone replacement therapy and vitamin-D. Firewall Engineer/Model: Hologic Horizon A (S/N [id number]) Facility LSC value of 0.022 for the [...] Dori Tong M.D. TW: TW Report ID: [id number] Reading Location: [id number] Procedure Note Dori Tong MD - 04/12/2025 EXAM DESCRIPTION: DEXA AXIAL SKELETON BONE DENSITY 1 OR MORE SITES REASON FOR STUDY: 79 y/o year old F with given history of:Postmenopausal status. Patient has taken/is taking Fosamax, hormone replacement therapyand vitamin-D. Firewall Engineer/Model: Hologic Horizon A (S/N [id number]) Facility LSC value of 0.022 for the [...] Dori Tong M.D. TW: TW Report ID: [id number] Reading Location: [id number] Erick Shafer MD IMG DXA PROCEDURES Final [...] to Intra-fissural, perifissural, and subpleural pulmonary nodules. http://pubs.rsna.org/doi/pdf/10.1148/radiol.[email or web address] THIS IS AN ELECTRONICALLY VERIFIED FINAL REPORT 05/06/2025 9:31 AM - Electronically signed by Govind Gunderson M.D. KR: KR Report ID: [id number] Reading Location: [place] [address] Procedure Note Govind Gunderson MD - 05/06/2025 [...] to Intra-fissural, perifissural, and subpleural pulmonary nodules. http://pubs.rsna.org/doi/pdf/10.1148/[email or web address] THIS IS AN ELECTRONICALLY VERIFIED FINAL REPORT 05/06/2025 9:31 AM - Electronically signed by Govind Gunderson M.D. KR: KR Report ID: [id number] Reading Location: [id number] us Erick Shafer MD IMG CT PROCEDURES Final Resul t * Cardiology Document Scan (04/10/2025) Anatomical Region Laterality Modality Other us Ventura Grace MD CV CARDIAC SERVICES PROCEDUR ES Edited Result - Final * Urine culture Urine, bladder (04/05/2025 11:10 AM CDT) Report Final Report: Less than 100,000 colonies/mL (clinically insignificant growth based on current clinical standards) Comment:Testing performed by : [facility], [address] [facility], [place]., [address] Organism (CLINICALLY INSIGNIFICANT GROWTH LIZ CUI Urine, bladder 04/05/2025 11 :10 AM CDT 04/05/2025 3:56 PM CDT Narrative LIZ - 04/06/2025 5:14 PM CDT Testing performed by [facility] Microbiology Laboratory ([phone]) Kassandra Cutler LAB MICROBIOLOGY - GENER AL ORDERABLES Final Result Performing Organization Address City/[facility]/ZIP Co de Phone Number LIZ [address] [facility] [place] [address] * (ABNORMAL) POCT URINALYIS TEST (04/05/2025 10:35 AM CDT) Color, Urine, POC Brown Clarity, ur, POC Turbid(A) Clear Glucose, ur, POC Negative Negative Bilirubin, ur, POC Small(A) Negative Ketones, ur, POC Trace(A) Negative Specific [place], POC 1.025 1.003 - 1.030 Blood, ur, [...] ab 1 <9 IU/mL [facility] Blood 03/21/2025 1:02 PM CDT 03/21/2025 1:03 PM CDT us Erick Shafer MD LAB BLOOD ORDERABLES Final Re sult [facility] [address] [facility] [place] [address] * TSH (03/21/2025 1:02 PM CDT) TSH 0.41 0.40 - 4.50 mIU/L [facility] Blood 03/21/2025 1:02 PM CDT 03/21/2025 1:03 PM CDT us Erick Shafer MD LAB BLOOD ORDERABLES Final Re sult Performing Organization Address City/[facility] Co de Phone Number [facility] [address] [place] [address] from Last 3 Months Insurance MEDICARE [facility] MEDICARE [facility] Care Teams Social Worker Masters Relationship Specialty Start Date End Date Erick Shafer MD PCP - General Family Medicine 06/15/24
--- OUTSIDE RECORDS SUMMARY | 2025-06-13 12:41 | XMS_ITS | Patient Health Record ---
Author Organization [facility] Address [address] [place] [address] Support Name Relationship Address Phone Divya Fair Guarantor Unknown [phone] Reason For Referral No Information Problems Problem Type SNOMED Code ICD Code Onset Dates Problem Status W/U Status Risk Notes Problem Morbid obesity (830356779) Morbid obesity (E66.01) Active confirmed Problem Hypertension (67465339) HTN (hypertension ) (I10) Active confirmed Problem Allergic rhinitis (50448950) Allergic rhinitis (J30.9) Active confirmed Problem Coronary artery disease (67716677) CAD (coronary artery disease) (I25.10) Active confirmed Problem S/P lumpectomy, right breast (Z98.89) Active confirmed Problem Family history of ischemic heart disease (616991317) Family history of MA (myocardial infarction) (Z82.49) Active confirmed Mother, at age 89 years, had MA Problem Epiretinal membrane (763735844) Epiretinal membrane, both eyes (H35.373) Active confirmed Problem Vitreous detachment of left eye (173162460333870 ) 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 Plan Of Treatment No Information Insurance Providers Payer Name Payer Address Payer Phone Subscriber Number Group Number Insured Name Patient Relationship to Insured Coverage Start Date Coverage End Date MEDICARE [address] [place] [phone] [id number] Mariaelena Fairclovis Self - patient is the insured 1 [facility] [address] [place] [address] [id number] Mariaelena Fairclovis Self - patient is the insured 3 Medical (General) History Medical History History ICD Code HTN (hypertension) I10 CAD (coronary artery disease) I25.10 Allergic rhinitis J30.9 S/P lumpectomy, right breast Z98.89 Epiretinal membrane, both eyes H35.373 Vitreous detachment of left eye H43.812 Morbid obesity E66.01 Status post total knee replacement, left Z96.652 Family history of MA (myocardial infarct ion) Z82.49
--- OUTSIDE RECORDS SUMMARY | 2025-06-13 12:41 | XMS_ITS | Patient Health Record ---
Author Organization [facility] Address [address] [address] Support Name Relationship Address Phone Divya Fair Guarantor Unknown [phone] Reason For Referral No Information Problems Problem Type SNOMED Code ICD Code Onset Dates Problem Status W/U Status Risk Notes Problem Hypertension (41875484) HTN (hypertension ) (I10) Active confirmed Problem Allergic rhinitis (03607182) Allergic rhinitis (J30.9) Active confirmed Problem S/P lumpectomy, right breast (Z98.89) Active confirmed Problem Coronary artery disease (49770370) CAD (coronary artery disease) (I25.10) Active confirmed Problem Morbid obesity (387407281) Morbid obesity (E66.01) Active confirmed Problem Family history of ischemic heart disease (113365066) Family history of [place] (myocardial infarction) (Z82.49) Active confirmed Mother, at age 89 years, had [place] Problem Epiretinal membrane (358283352) Epiretinal membrane, both eyes (H35.373) Active confirmed Problem Vitreous detachment of left eye (781483815060768 ) 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 Plan Of Treatment No Information Insurance Providers Payer Name Payer Address Payer Phone Subscriber Number Group Number Insured Name Patient Relationship to Insured Coverage Start Date Coverage End Date A[employer] (Supplemen rissa to Medicare) [address] [place] [phone] [id number] Marv Divya Self - patient is the insured 3 MEDICARE [address] [place] [phone] [id number] Marv Divya Self - patient is the insured 1 Medical (General) History Medical History History ICD Code HTN (hypertension) I10 CAD (coronary artery disease) I25.10 Allergic rhinitis J30.9 S/P lumpectomy, right breast Z98.89 Epiretinal membrane, both eyes H35.373 Vitreous detachment of left eye H43.812 Morbid obesity E66.01 Status post total knee replacement, left Z96.652 Family history of [place] (myocardial infarct ion) Z82.49
[2025-06-13 13:01] LABS: Estimated Glomerular Filt Rate 40
== END 2025-06-13 12:38 | disposition home or self-care (01) ==
PROVIDERS: PCP Family Medicine; Visit Provider Urology
DX: R31.0 Gross hematuria (principal); R91.1 Solitary pulmonary nodule
CPT/HCPCS: 74178; Q9967

== ENCOUNTER 2025-07-05 02:09 | Day surgery (SDC) | payer MEDICARE, SELFPAY ==
[2025-06-28 10:36] VITALS: BMI 39.2
--- NOTE | 2025-06-28 10:47 | PC.NURSE ---
[facility] has started construction of its new state of the art ER which will open Spring 2026. With this, we anticipate parking may be a challenge for some our surgical patients and families. Parking spaces are limited but are available for all Surgical, obstetrics, and ER patients sharing this lot. If you arrive and find you are having a hard time finding a parking space, please note that we understand the challenges, please drive around the hospital and park near Hospital Entrance 1. When you enter this entrance, you can ask a volunteer to direct or take you back to the surgical waiting area to check in. We appreciate everyone?s understanding of these expected challenges while we build for your future. Report to the Outpatient Waiting Room, entrance under the green pavilion located off [address], at time ___0600am____ on date __07/05/25 . Planned Procedure Time: __0730am .? Time changes happen often and if your time is changed the preop area will call you the afternoon before. - You and your visitor will be asked to self-screen and do not enter if you have any COVID symptoms. Please call surgeon if you need to reschedule. - A mask is optional within the hospital at this time. Patients may have clear liquids (water, carbonated beverages, clear teas, apple juice) until 3 hours prior to surgery with a maximum of 20 ounces. - No food from midnight until time of surgery and no smoking, or chewing tobacco (or any form of nicotine). No chewing gum, candy or mints. (0430am) Take only the following medications with a SIP of water on the morning of surgery: Amlodipine and Metoprolol DO NOT STOP ANY OF YOUR OTHER PRESCRIPTION MEDICATIONS PRIOR TO SURGERY EXCEPT THE FOLLOWING Hold all vitamins and supplements for 7 days per anesthesiologist. Medications to discontinue per physician ____HOLD Aspirin & any NSAIDS for [address] Watkins Date to take last dose 06/27/25 Please no make-up, nail tajik, hairspray, perfume, deodorant, or body powder the day of surgery.? No jewelry (including any body piercings) or valuables the day of surgery, leave them at home.? Please take a shower or bath the night before, or the morning of, surgery with an antibacterial soap.? Wear comfortable, loose fitting clothing.? - Jewelry must be removed prior to entering the operating room.? Rings and piercings that are not removed may be cut off. - The hospital will not accept responsibility for valuables.? - Please leave all valuables, including medications, at home the day of surgery. If you are going home after surgery, a licensed otr refrigerated cdl truck driver must drive you home.? - NO public transportation without another adult if you receive anesthesia. - We recommend that an adult stay with you for 24 hours following discharge. - We also recommend that you do not drive, make important decision, drink alcoholic beverages, or take any drugs that were not prescribed by your health care provider for at least 24 hours after your discharge time. Follow any additional instructions given to you from your surgeon. Telephone instructions given to __Patient and asked if any additional questions and then verbalized understanding. Patient advised to call surgeon office or pre surgery nurse liaison [phone] if any additional questions.
[2025-07-05] VITALS (8 sets, daily range): BP systolic 123–181; BP diastolic 69–96; PULSE 61–68; RESP 14–18; TEMP 36.2–36.6; O2SAT 97–100; BMI 38.8
--- NOTE | ~2025-07-05 | XR_ITS ---
EXAMINATION: XR retrograde pyelogram LT DATE: 07/05/2025 08:00 INDICATION: Gross hematuria with left hydronephrosis and urothelial thickening at the proximal left ureter on prior CT. TECHNIQUE: 65 images of the abdomen and pelvis were obtained during procedure performed by Dr. Watkins. Radiologist was not present for the imaging or procedure. The amount of fluoroscopy time used during this procedure was 1.0 minutes. Total DAP was 1.23 mGym^2. COMPARISON: CT dated 06/13/2025 FINDINGS: Images demonstrate a wire advanced into the left ureter. There is subsequent cannulation of the left ureter with retrograde contrast injection demonstrating moderate left hydronephrosis with small mobile filling defects within the collecting system which demonstrates irregular morphology raising concern for malignancy. Mild narrowing at the ureteropelvic junction with smooth mucosal surface. IMPRESSION: 1. Dilated and irregular appearing left renal collecting systems with mobile filling defects suspicious for malignancy with intraluminal debris versus clot. See procedure note for further detail. 2. Mild stricture at the ureteropelvic junction with smooth mucosal surface. Reviewed, dictated and finalized at location A. IMPRESSION: 1. Dilated and irregular appearing left renal collecting systems with mobile fi lling defects suspicious for malignancy with intraluminal debris versus clot. S ee procedure note for further detail. 2. Mild stricture at the ureteropelvic junction with smooth mucosal surface.
--- NOTE | 2025-07-05 06:23 | WPDHPUPDATE1 ---
History and Physical Update Update Date/Time: 07/05/25 06:23 History and Physical has been reviewed, including an updated exam of the patient. There are NO changes in the patient's condition. Risks, benefits, and alternatives have been discussed and questions answered. Patient agrees to proceed with procedure.
[2025-07-05] MEDS: LACTATED RINGERS 1,000 ML 30 ML IV CONT (06:40)
--- NOTE | 2025-07-05 06:48 | WPDANESEPPF ---
Anes - Initial Pre Proc Eval Procedure: Operation Date: 07/05/25 07:30 Proposed Procedures p Cystoscopy, Left Ureteroscopy with Biopsy, Retrograde Pyelography, Possible Left Stent Placement - Anselmo Watkins MD Date/Time: 07/05/25 06:48 Surgeon: Anselmo Watkins MD Pre Op Diagnosis: gross hematuria Patient Data Age: 80 Gender: F Height: 1.5 m Weight: 88 kg Allergies Allergy/AdvReac Type Severity Reaction Status Date / Time adhesive tape Allergy Intermediate Rash Verified 07/05/25 06:54 iodine AdvReac Intermediate Itching Verified 07/05/25 06:54 latex AdvReac Intermediate Itching Verified 07/05/25 06:54 Home Medications ?Medication ?Instructions ?Recorded ?Confirmed ?Type furosemide 40 mg tablet (Lasix) 40 mg PO QAM PRN edema 03/30/21 06/28/25 History amlodipine 10 mg tablet 10 mg PO DAILY #90 tabs 07/09/22 07/05/25 Rx lisinopril 40 mg tablet 40 mg PO DAILY 03/07/23 06/28/25 History trazodone 50 mg tablet 25 mg PO QHS PRN sleep 03/07/23 06/28/25 History metoprolol tartrate 50 mg tablet 50 mg PO BID #180 tabs 04/11/23 07/05/25 Rx potassium chloride 20 mEq 20 meq PO HS 03/25/25 06/28/25 History tablet,extended release Patient hx anesthesia problems: none Family hx anesthesia problems: none Results Review: All pre-operative results and documents have been reviewed as part of the pre-operative evaluation. [facility] Past Medical History Medical History (Updated 07/05/25 @ 06:55 by Maxx Mcdonald DO) Seizure Breast cancer Essential (primary) hypertension Mixed hyperlipidemia History of breast cancer Hypertension Surgical History Surgical History Status post total hip replacement, left (~04/16/25) Hx laparoscopic cholecystectomy Hx of appendectomy History of partial hysterectomy History of total right knee replacement (~03/20/19) History of total left knee replacement (~05/16/12) H/O lumbar discectomy (~1993) History of lumpectomy of right breast (~09/08/18) Family History Family History Other Diabetes mellitus Family history of cardiovascular disease Family history of thyroid disease Hypertension Social History Social History Smoking packs per day: 0.5 Smoking cigarettes per day: 10.0 Years smoked: 25 Smoking pack-years: 12.50 Smoking status: Former smoker Tobacco type: cigarettes Second hand tobacco smoke exposure: Yes Smoking end date: 09/12/90 Additional smoking assessment comments: DENIES ANY FORM OF TOBACCO USE Alcohol intake: never Alcohol use details: very rarely Substance use: never Lack of Transportation: No Lack of Food: Never True Current Housing: I Have Housing Concerned About Future Housing: Decline to Answer Difficulty Paying Gas/Electric Bills: Decline to Answer Difficulty Paying for Meds: Decline to Answer Currently Unemployed: Decline to Answer Education: High School Diploma/GED Difficulty w/ Childcare or Family Care: Decline to Answer Living arrangements: with family Additional living arrangements comments: Occupation/Education: retired Gender identity (if verbalized by the patient): Female Sexual Orientation (if Verbalized by the Patient): Straight or Heterosexual Spiritual care concerns: No Agree to blood products: Yes Anes - Eval Final PreProcedure Day of Procedure 07/05/25 06:48 Patient weight: obese Heart: regular rate and rhythm Lungs: clear to auscultation Airway: Mallampati scale class II Neurological: alert and oriented Last oral intake: >/= 8 hours ASA classification: III Emergent: no Anesthetic plan: proceed Anesthesia type and monitoring: general LMA and standard monitoring Results Review: All pre-operative results and documents have been reviewed as part of the pre-operative evaluation. Informed Consent: The patient's anesthetic plan and its attendant risks and benefits were discussed with the patient/family/POA. Questions were solicited and answers provided to the satisfaction of the patient/family/POA.
[2025-07-05] MEDS: ceFAZolin 2 GM in SODIUM CHLORIDE 0.9% IV 50 ML 100 ML IVPB (07:24)
--- NOTE | 2025-07-05 07:44 | S_PTH ---
PATIENT: Divya Fair LOC: [facility] U#:[id number] AGE/SX: 80/F ROOM: RE07/05/[address]: Anselmo Watkins MD : 1945 BED: DIS: 07/05/2025 SPEC #: [id number] RECD: 07/05/25 10:24 STATUS: NATHAN REJorge #: [id number] MARIE: 07/05/25 07:[address]: Anselmo Watkins DEPT: [facility] Surgical RECD BY: Yulissa Suero ENTERED: 07/05/25 10:25 SP TYPE: Surgical OTHR DR: Erick Shafer, Tissues: A - Biopsy B - Urine Procedures: Anthony Keratin Hematoxylin and Eosin Stain Gross and Microscopic Level 4 [place] Red Cytopathology Cytospin
[2025-07-05] MEDS: LIDOCAINE 2% GEL UROJET 10 ML PKG MUCOUS MEM (07:48)
--- NOTE | 2025-07-05 07:58 | W.PM.PROC2 ---
Procedure Note - Detailed Date of Procedure 07/05/25 Pre-op Diagnosis Gross hematuria Post-op Diagnosis Other (Urothelial carcinoma the left renal pelvis) Procedure Performed Cystoscopy, left ureteroscopy with biopsy, left retrograde pyelography Surgeon Anselmo Watkins MD Anesthesia General Findings 1. Urothelial carcinoma involving the mid and lower pole calices 2. Extensive necrosis of the renal pelvis and ureteropelvic junction Description of Procedure Patient is brought to the op suite she was prepped draped in routine sterile fashion while in dorsal lithotomy position after the uneventful induction of general LMA anesthetic. Cystoscopy was undertaken with a 19 F rigid cystoscope. Urine was collected for cytology. The bladder was carefully inspected and found to be without warren urothelial neoplasm or hyperemia. There is no intravesical foreign body. She has a single orthotopic ureteral orifice bilaterally. A 0.035 in glidewire was advanced in her left renal pelvis at the distal ureter was dilated with an 8 F 10 F dilator. Ureteroscopy was undertaken with a 7.5 F flexible digital ureteral scope. A she has narrowing at the ureteropelvic junction opposing some difficulty in getting the scope into her renal pelvis and calices. Eventually I do. Her renal pelvis appears to be extensively necrotic without any warren viable tissue. Once I get into the calices however, she has obvious urothelial carcinoma involving at least the mid and lower pole calices. I attempted to obtain biopsies both with a disposable stone basket and Parana forceps. Ureteroscopy of the remainder of the ureter was perfectly without any mucosal hyperemia or warren neoplasm beyond the ureteropelvic junction. She has had no significant flank pain at opted not to place a ureteral stent. Scopes and wires removed and she was taken recovery room in good condition Drains No Pathology Yes Complications No immediate complications Condition Stable Disposition PACU
== END 2025-07-05 10:15 | disposition home or self-care (01) ==
PROVIDERS: PCP Family Medicine; Visit Provider Urology
PROC: (CPT 52352; principal; 2025-07-05 07:30)
DX: C65.2 Malignant neoplasm of left renal pelvis (principal); E78.2 Mixed hyperlipidemia; I10 Essential (primary) hypertension; R56.9 Unspecified convulsions; E66.9 Obesity, unspecified; Z68.38 Body mass index [BMI] 38.0-38.9, adult; Z98.890 Other specified postprocedural states; Z90.49 Acquired absence of other specified parts of digestive tract; Z90.11 Acquired absence of right breast and nipple; Z87.891 Personal history of nicotine dependence; Z85.3 Personal history of malignant neoplasm of breast; Z82.49 Family history of ischemic heart disease and other diseases of the circulatory system
CPT/HCPCS: 52354; 74420; 88108; 88305; 88313; 88342; J0690; C1769; C1894; J0360; J2003; J2405; J2704; J3010; J7120; Q9966